=== PATIENT | female | born 1960 | race Caucasian/White ===

== ENCOUNTER 2018-01-06 19:10 | Emergency (ER) | payer BC, SELFPAY ==
[2018-01-06 19:12] VITALS: BP 165/89; PULSE 93; RESP 18; TEMP 37.1; O2SAT 96; BMI 36.4
--- NOTE | 2018-01-06 19:48 | RAD_ITS ---
STUDY: X-RAY - RIGHT KNEE REASON FOR EXAM: Female, 57 years old. Right knee pain. TECHNIQUE: 4 view(s) of the knee. COMPARISON: None. FINDINGS: Normal visualized distal femur. Normal visualized proximal tibia and fibula. Normal proximal tibiofibular articulation. Normal medial femorotibial compartment. Normal lateral femorotibial compartment. Normal patellofemoral articulation. Small suprapatellar effusion is present. RAD/Knee 4 or More Views IMPRESSION: No evidence of significant joint space loss or osteophyte formation with noted small suprapatellar effusion. Electronically Signed: Nikita Zaidi DO at 20:34 EDT , Service support ,
--- NOTE | 2018-01-06 20:20 | RAD_ITS ---
STUDY: X-RAY - PELVIS AND RIGHT HIP REASON FOR EXAM: Female, 57 years old. Right hip pain, no known injury. TECHNIQUE: Radiological exam, hip, unilateral, with pelvis when performed; 2 or 3 views. COMPARISON: None. FINDINGS: There is a non-specific bowel gas pattern. Normal visualized soft tissue structures. Normal bilateral iliac wings, sacroiliac joints and visualized sacrum. Normal bilateral superior and inferior pubic rami. Normal pubic symphysis. Normal bilateral ischial tuberosities. Normal visualized femoral head. Normal acetabulum. There is mild articular joint space narrowing of the hip. RAD/Hip 2-3 Views with Pelvis IMPRESSION: Mild hip joint space narrowing with otherwise no evidence of significant osteophyte formation or sclerosis. Electronically Signed: Nikita Zaidi DO at 20:38 EDT , Service support ,
--- NOTE | 2018-01-06 21:33 | ED.VISSUMM ---
- ER Visit Summary Date of Service: 01/06/18 Chief Complaint: Right hip and knee pain History of Present Illness: The patient is a 57 F who presents with right hip and knee pain. She states she twisted her right knee about a month ago. She thinks that she overcompensated with her gait. She is now having right hip pain particularly over the last week. She denies any weakness paresthesias loss of function. Physical Examination: Afebrile vitals are stable Heart regular Lungs clear Painful but active full range of motion of the right hip and knee she does have some diffuse tenderness small effusion on the right knee brisk capillary refill normal sensation Test Results: X-rays of the right hip and knee are notable for joint space narrowing in the right hip and a small suprapatellar effusion of the right knee Emergency Department Course and Treatment: No fractures noted on imaging. I do suspect this is related to strain and sprain. She was advised on supportive care. She was given a prescription for naproxen and discharged home. Treatment Plan: [] Disposition: Discharge Impression: Right hip pain Right knee pain This note was generated with [employer] dictation software. It may contain incorrect words, spelling, and punctuation that were not noted in review of the chart prior to signing ED Disposition - Plan for ED Patient: Chief Complaint: Lower Extremity Injury Referrals: Abhijeet Rowe MD [Primary Care Provider] -
--- NOTE | 2018-01-06 21:35 | ED.DEP ---
ED Disposition - Plan for ED Patient: Chief Complaint: Lower Extremity Injury Instructions: ED Knee Pain UKO, ED Sprain Hip Prescriptions: Naproxen [Naprosyn] 500 mg PO BID #20 tab Referrals: Abhijeet Rowe MD [Primary Care Provider] -
[2018-01-06 21:53] VITALS: BP 158/78; PULSE 79; RESP 18
== END 2018-01-06 21:53 | disposition home or self-care (01) ==
PROVIDERS: Emergency Provider Emergency Medicine; Family Provider Family Medicine; PCP Family Medicine
DX: M25.551 Pain in right hip (principal); M25.561 Pain in right knee; M25.461 Effusion, right knee; X50.1XXA Overexertion from prolonged static or awkward postures, initial encounter; Y93.9 Activity, unspecified; Y92.9 Unspecified place or not applicable; Y99.9 Unspecified external cause status; E11.9 Type 2 diabetes mellitus without complications; I10 Essential (primary) hypertension; K21.9 Gastro-esophageal reflux disease without esophagitis; Z79.84 Long term (current) use of oral hypoglycemic drugs; Z79.899 Other long term (current) drug therapy
CPT/HCPCS: 73502; 73564; 99282

== ENCOUNTER 2018-02-04 23:37 | Emergency (ER) | payer BC, SELFPAY ==
[2018-02-04 23:38] VITALS: BP 162/103; PULSE 72; RESP 15; TEMP 37.2; O2SAT 99; BMI 42.0
[2018-02-04 23:45] VITALS: BP 183/83; PULSE 68; RESP 18
--- NOTE | 2018-02-04 23:56 | ED.VISSUMM ---
- ER Visit Summary Date of Service: 02/04/18 Chief Complaint: Atraumatic right knee pain and swelling History of Present Illness: The patient is a 57 F leg a 3 day history of right knee pain and swelling. Has had a history of osteoarthritis in her right hip. Currently has been undergoing physical therapy. Denies any recent falls or trauma. No fever or redness. She has never had surgery to her right knee. She states anti-inflammatories are controlling her discomfort. She denies any prior right knee surgeries. Physical Examination: Middle-aged female no acute distress. Vital signs are stable and afebrile. HEENT exam unremarkable. Lungs clear to auscultation bilaterally. Heart regular rate and rhythm no murmur. Abdomen soft nontender. She is moving all 4 extremities. Neurovascular intact. The right knee is mildly swollen has a small to moderate-sized effusion. There is no redness. No significant warmth. No cellulitis. She is able to flex and extend the right knee. Has complete 180? of extension. The ACL, PCL, MCL and LCL are all intact. She has good endpoints. She does have mild joint tenderness. The extensor mechanism is intact. Distally the right calf ankle and foot are nontender neurovascular intact with strong DP pulse. Dorsi plantar flexion intact. Test Results: None. Patient has had x-rays before in the past. Emergency Department Course and Treatment: I explained to the patient she needs orthopedic follow-up. She may or may not need MRI of her knee. This is either just the degenerative arthritis or could be a meniscal tear. She will be treated for [place] for pain. Continue ice and anti-inflammatories. Treatment Plan: [place]. Ice and elevation. NSAIDs. Orthopedic follow-up. Disposition: Discharge Impression: Right knee pain and swelling secondary to a joint effusion Osteoarthritis This note was generated with P[employer] software. It may contain incorrect words, spelling, and punctuation that were not noted in review of the chart prior to signing ED Disposition - Plan for ED Patient: Chief Complaint: Lower Extremity Injury Referrals: Abhijeet Rowe MD [Primary Care Provider] -
--- NOTE | 2018-02-04 23:59 | ED.DCSUM_ITS ---
- ER Visit Summary Date of Service: 02/04/18 Chief Complaint: Atraumatic right knee pain and swelling History of Present Illness: The patient is a 57 F leg a 3 day history of right knee pain and swelling. Has had a history of osteoarthritis in her right hip. Currently has been undergoing physical therapy. Denies any recent falls or trauma. No fever or redness. She has never had surgery to her right knee. She states anti-inflammatories are controlling her discomfort. She denies any prior right knee surgeries. Physical Examination: Middle-aged female no acute distress. Vital signs are stable and afebrile. HEENT exam unremarkable. Lungs clear to auscultation bilaterally. Heart regular rate and rhythm no murmur. Abdomen soft nontender. She is moving all 4 extremities. Neurovascular intact. The right knee is mildly swollen has a small to moderate-sized effusion. There is no redness. No significant warmth. No cellulitis. She is able to flex and extend the right knee. Has complete 180? of extension. The ACL, PCL, MCL and LCL are all intact. She has good endpoints. She does have mild joint tenderness. The extensor mechanism is intact. Distally the right calf ankle and foot are nontender neurovascular intact with strong DP pulse. Dorsi plantar flexion intact. Test Results: None. Patient has had x-rays before in the past. Emergency Department Course and Treatment: I explained to the patient she needs orthopedic follow-up. She may or may not need MRI of her knee. This is either just the degenerative arthritis or could be a meniscal tear. She will be treated for [place] for pain. Continue ice and anti-inflammatories. Treatment Plan: [place]. Ice and elevation. NSAIDs. Orthopedic follow-up. Disposition: Discharge Impression: Right knee pain and swelling secondary to a joint effusion Osteoarthritis This note was generated with Sum[employer]ation software. It may contain incorrect words, spelling, and punctuation that were not noted in review of the chart prior to signing ED Disposition - Plan for ED Patient: Chief Complaint: Lower Extremity Injury Referrals: Abhijeet Rowe MD [Primary Care Provider] -
--- NOTE | 2018-02-04 23:59 | ED.DEP ---
ED Disposition - Plan for ED Patient: Disposition: Home or Assisted Living Chief Complaint: Lower Extremity Injury Instructions: ED Effusion Knee Prescriptions: Hydrocodone/Acetaminophen [[place] 5-325 Tablet] 1 ea PO Q4H PRN PRN #20 tab PRN Reason: Pain Referrals: Edmundo Mcgrath MD [STAFF PHYSICIAN] - As soon as possible Additional Instructions: Ice and elevate your right knee. Call follow-up with an orthopedic physician for further evaluation. [place] for pain.
--- NOTE | 2018-02-05 00:03 | DCINST.ED_ITS ---
ED Disposition - Plan for ED Patient: Disposition: Home or Assisted Living Chief Complaint: Lower Extremity Injury Instructions: ED Effusion Knee Prescriptions: Hydrocodone/Acetaminophen [[place] 5-325 Tablet] 1 ea PO Q4H PRN PRN #20 tab PRN Reason: Pain Referrals: Edmundo Mcgrath MD [STAFF PHYSICIAN] - As soon as possible Additional Instructions: Ice and elevate your right knee. Call follow-up with an orthopedic physician for further evaluation. [place] for pain.
[2018-02-05] MEDS: HYDROcodone Bitartrate/Apap 5/325 Tablet PO (00:11)
[2018-02-05 00:12] VITALS: BP 175/97; PULSE 75; RESP 16; O2SAT 99
== END 2018-02-05 00:30 | disposition home or self-care (01) ==
LOC: ED 02-05 00:04
PROVIDERS: Emergency Provider Emergency Medicine; Family Provider Family Medicine; PCP Family Medicine
DX: M25.461 Effusion, right knee (principal); M17.11 Unilateral primary osteoarthritis, right knee; E11.9 Type 2 diabetes mellitus without complications; I10 Essential (primary) hypertension; Z79.84 Long term (current) use of oral hypoglycemic drugs; Z79.82 Long term (current) use of aspirin; Z79.899 Other long term (current) drug therapy
CPT/HCPCS: 99284

== ENCOUNTER → 2018-03-07 15:19 | Outpatient (CLI) | payer BC, SELFPAY ==
--- NOTE | 2018-03-07 16:10 | MRI_ITS ---
STUDY: MRI RIGHT KNEE REASON FOR EXAM: Female, 57 years old. Twisting injury. TECHNIQUE: Standardized fat and water weighted pulse sequences were obtained in all 3 orthogonal planes. COMPARISON: None. FINDINGS: This study is extremely limited due to patient motion on all pulse sequences. There is a large joint effusion. Cruciate and collateral ligaments are intact. Quadriceps and patellar tendons are intact. Medial and lateral retinacula are unremarkable. Patellofemoral compartment: There is very mild lateral patellar subluxation. Patellofemoral articular cartilage is normal. Medial compartment: No evidence of meniscal tear. Cartilage is intact. Lateral compartment: Extensive loss of femoral hyaline cartilage. Irregular femoral articular surface, with displaced osteochondral fracture in the medial aspect of the lateral femoral condyle. There is a bucket-handle tear of the anterior horn of the lateral meniscus. Meniscal fragment is displaced laterally. Marrow edema is noted in the lateral femoral condyle and lateral tibial plateau. Marrow signal is otherwise unremarkable. There is no evidence of fracture. Edema is noted in the lateral head of the gastrocnemius, consistent with low-grade strain. Biceps femoris, popliteus, semimembranosus, and pes anserine muscles and tendons are unremarkable. MRI/Lower Ext Joint Only (Routine) IMPRESSION: 1. Limited due to motion artifact. 2. Bucket-handle tear of the anterior horn lateral meniscus. 3. Low-grade gastrocnemius strain. 4. Irregular femoral articular surface with suspected displaced osteochondral fracture. 5. Lateral femoral and tibial bone contusions. 6. Joint effusion. Electronically Signed: Debo De La Rosa MD at 22:06 EDT Tel , Service support ,
== END ==
PROVIDERS: Family Provider Family Medicine; PCP Family Medicine; Visit Provider Physician Assistant Surgical
DX: M25.561 Pain in right knee (principal)
CPT/HCPCS: 73721

== ENCOUNTER 2018-04-02 07:33 | Inpatient (IN) | payer BC, SELFPAY ==
[2018-03-25 15:11] VITALS: BP 150/95; PULSE 68; RESP 16; TEMP 36.6; O2SAT 99; BMI 35.2
--- NOTE | 2018-03-25 15:20 | SDCEKG_ITS ---
Test Reason : Blood Pressure : / mmHG Vent. Rate : 070 BPM Atrial Rate : 070 BPM P-R Int : 122 ms QRS Dur : 080 ms QT Int : 396 ms P-R-T Axes : 007 014 045 degrees QTc Int : 427 ms Poor data quality, interpretation may be adversely affected Normal sinus rhythm Normal ECG Confirmed by DAMIEN FREDERICK, MURALI ([id number]), visual effects editor MEGGAN GARCIA ([id number]) on 03/31/2018 3:20:17 PM Referred By: Vincent Rincon Confirmed By:MURALI QUEZADA MD
[2018-03-25 15:44] LABS: Absolute Lymphocyte Count 1.59 X10^3/ul (0.83-4.51); Absolute Neutrophil Count 5.3 X10^3/uL (2.0-7.7); Basophil# 0.03 X10^3/uL; Basophil% 0.4 % (0-1); Eosinophil# 0.09 X10^3/uL; Eosinophils% 1.2 % (0-5); Hematocrit 39.6 % (37-47); Hemoglobin 12.8 g/dl (12.0-15.0); Lymphocyte # 1.59 X10^3/ul (4.0); Lymphocyte % 21.3 % (19-41); Mean Corp Hgb Conc 32.3 g/gl (32-36); Mean Corpuscular Hgb 28.9 pg (27.0-32.0); Mean Corpuscular Volume 89.4 fL (81-99); Mean Platelet Vol. 9.9 fl (6.2-12.0); Monocyte# 0.41 X10^3/uL; Monocyte% 5.5 % (0-10); Neutrophil # 5.34 X10^3/uL (2.7-7.7); Neutrophil % 71.5 % (47-70); Platelet Count 251 K/mm3 (150-450); RBC Distribution Width CV 12.8 % (11.6-14.6); RBC Distribution Width SD 41.4 fl (35.1-43.9); Red Blood Count 4.43 M/mm3 (4.2-5.4); White Blood Count 7.5 K/mm3 (4.4-11.0)
[2018-03-25 15:46] LABS: POSITIVE COUNT NO; POSITIVE DIFFERENTIAL NO; POSITIVE MORPHOLOGY NO
[2018-03-25 16:08] LABS: Hemoglobin A1c 6.4 % (4.2-6.3)
[2018-03-25 16:14] LABS: Anion Gap 6 (5-15); BUN 18 mg/dL (7-18); BUN/Creat Ratio 23.3 RATIO (10-20); Calcium,Total 8.4 mg/dL (8.5-10.1); Chloride 107 mmol/L (98-107); Creatinine, Serum 0.77 mg/dL (0.55-1.02); EST Glomerular Filtration Rate 82 mL/min (>60); Est Glom Filt Rate - Afr Amer 99 mL/min (>60); Estimated Creatinine Clearance 73.41 ml/min; Glucose 118 mg/dL (74-106); Potassium 3.8 mmol/L (3.5-5.1); Sodium Level 140 mmol/L (136-145)
--- NOTE | 2018-03-26 12:08 | HP.PCM_ITS ---
History and Physical DATE OF SURGERY: 04/02/2018 SCHEDULED PROCEDURE: Right Total Knee Arthroplasty HISTORY OF PRESENT ILLNESS: This is a 57-year-old female who has been having ongoing pain in the right knee since December 2017. Her pain is aching, sharp, and stabbing. She has increased pain going up and down stairs, driving, and standing for long periods. Patient denies any trauma or injury to the knee. She does have low back pain with some numbness and tingling into her feet which she relates to the diabetic neuropathy. Patient had to go to the emergency room in January due to her pain. Patient feels as if her knee is unstable and wants to give out. She has required cane and walker for a rotatory assistance. Patient states she has difficult time with doing housework and shopping. She has difficult time standing at work. Patient has stumbled secondary to her right knee pain. Patient feels unsafe driving due to her pain. Patient has tried conservative measures consisting of rest, ice, heat, and elevation with minimal relief. She underwent a corticosteroid injection into the right knee in January 2018 which did not provide her with any significant amount of relief. She has been through formal physical therapy and home exercises with no relief in symptoms. She has been through career based intervention coordinator with no relief in symptoms. Patient has been on oral medications with no relief in symptoms. She was unable to take anti- inflammatory due to this upsetting her stomach. Patient denies previous surgery on the right knee. patient also underwent a MRI of the right knee. Patient currently denies any chest pain, shortness of breath, fevers chills, recent infections. Patient has a medical history pertinent for type 2 diabetes m ellitus, hypertension, and vertigo. We are obtaining surgical clearance from patient's primary care physician. REVIEW OF SYSTEMS: ROS: Const: Reports change in appetite, but denies fever and weight change. CV: Reports irregular heartbeat, but denies chest pain and heart murmur. Resp: Reports cough and shortness of breath, but denies pneumonia, tuberculosis and wheezing. GI: Reports constipation, diarrhea, heartburn and nausea, but denies rectal itching, bloody stools and vomiting. : Denies incontinence. Musculo: Reports gait disturbance, leg swelling, trouble walking and weakness, but denies pain. Skin: Denies Raynaud's, history of shingles and tattoo. Neuro: Reports difficulty with balance, dizziness and numbness/tingling but denies ambulatory dysfunction and tremor. Psych: Reports anxiety, insomnia and stress. Charli/Lymph: Denies anemia, bleeding/bruising tendency and past transfusion. Reviewed, no changes. PAST MEDICAL HISTORY: Advance Care Plan: No Advance Directives Effective Date: 02/07/2018 PMH: Medical Problems: Arthritis, Diabetes, High Blood Pressure, Vertigo Accidents: None Surgical Hx: None Anesthesia Complications: None Assistive Devices: Glasses, Cane Reviewed and updated. SOCIAL HISTORY: SH: Marital: Single.Occupation: [employer].Work Status: Currently Working.Hand Dominance: Right-handed. Personal Habits: Cigarette Use: Never Smoked Cigarettes.Smokeless Tobacco: Never Used Smokeless Tobacco.Alcohol: Denies use.Drug Use: Denies Use.Enjoy Exercising: Daily. Reviewed, no changes. VITALS: Ht: 65 Wt: 208lb Wt k.349 BMI: 34.6 BP: 148/79 Pulse: 78 Resp: 16 T: 98.7 T: 37.1C ALLERGIES: Penicillin - Hives Metformin - Diarrhea MEDICATIONS: Glimepiride 1 mg daily, Lisinopril 2.5 mg daily, Meloxicam 15 mg daily, Lorazepam 0.5 mg as needed, Meclizine HCL 25 mg as needed, Probioic-Ritzman Brand daily, Tylenol Extra Strength 500 mg 2 by mouth every 8 hours PRE-OP EXAM: General appearance:NORMAL Other: Eyes: Conjunctivae and lids: NORMAL Pupils: ERR Ears, Nose, Mouth, and Throat: NORMAL Other: Inspection of lips, teeth and gums: NORMAL Other: Neck: Examination of neck: no masses noted. Respiratory: Assessment of respiratory effort: NORMAL Other: Auscultation of lungs: clear to auscultation no wheezes, rhonchi or rales. Cardiovascular: Auscultation of heart: regular rate and rhythm, positive sy stolic murmurs. Exam of carotid arteries: NORMAL Other: Gastrointestinal: Exam of abdomen: soft, nontender, nondistended bowel sounds present. PHYSICAL EXAMINATION: Patient is alert and oriented ?3 in no acute distress. Patient walks with an antalgic gait. She does require the use of a walker. Patient has tenderness to palpation over the medial and lateral right knee at the joint line. Range of motion right knee: Lacks 5 of full extension to 100 of flexion. Patient has correctable valgus alignment. Stable to anterior/posterior drawer exam. She does have lateral laxity. Sensation intact to light touch. Neurovascularly intact. IMAGING STUDIES: X-rays of the right knee reveal valgus alignment with lateral joint space narrowing, subchondral sclerosis, osteophyte formation consistent with severe osteoarthritis. MRI of the right knee does show osteochondral fragment and severe lateral compartment loss of cartilage with bucket-handle tear in the lateral meniscus. IMPRESSION: 1. Severe right knee osteoarthritis 2. Type 2 diabetes mellitus 3. Hypertension 4. Vertigo PLAN: Dr. Rincon did discuss and review with the patient all treatment options including surgical versus nonsurgical options. Patient does wish to proceed with the above-stated procedure. Potential risks, benefits, and complications of the procedure were discussed in detail including but not limited to , infection, nerve and blood vessel damage, persistent pain, numbness, tingling, paresthesias, blood clot, pulmonary embolism, and requirement for possible further surgery. The patient expressed full understanding and has no further questions for the doctor. Patient does agree to proceed with the above-stated procedure and has signed the surgery consent form. ___ I have re-examined the patient. There are no clinical changes since date of exam. ___ See progress notes for changes. ___ Dictated on admission Date: Time: Signature:
--- NOTE | 2018-03-27 12:01 | CASEMGMT ---
Call placed to patient to discuss d/c needs after upcoming surgery. Per PAT assessment, patient planned to return home. When speaking with patient, she reports that she feels she needs rehab for 1-2 weeks there's too much to do at home and I need to be able to put weight on my leg and patient has already spoken with HARMEET Joseph. Patient states that [place] insurance will do pre-cert for TCU after patient has surgery. Patient reports that she has a walker. Patient reports that she has no running water at her home, will have to take sponge baths with diaz of hot water and uses a chamber pot. Reports there is 1 step into entryway and 1 step into kitchen, otherwise has bed and bath area on 1st level of home. Patient questioning pre-surgery bath per instruction sheet - is shaky and unsteady when she doesn't eat and is afraid to take required bath at home the day of surgery. Encouraged patient to ask surgery staff when they call for arrival time if there are accommodations in surgery area. Informed patient that [facility] will follow up with patient while she's here. Etta Carreno LPN Clinical Support
--- NOTE | 2018-03-27 13:56 | CASEMGMT ---
Spoke with Jennifer in PAT re: patient's concerns of completing hibiclens bath the morning of surgery while fasting for surgery. Per Jennifer, surgery staff would be able to assist with hibiclens in pre-op as they use hibiclens wipes when changing from street clothes to hospital gown. Call placed to patient to inform her of above. Stressed to patient the importance of completing the hibiclens wash for the 5 days leading up to surgery as instructed by PAT, patient verbalizes understanding and states there won't be any difficulty with the 5 days leading up to surgery. Patients only concern is that she is weak and unsteady when she doesn't eat. ALEJANDRO Woodward updated as well. Etta Carreno, MARLON Clinical Support
[2018-04-02] VITALS (12 sets, daily range): BP systolic 80–172; BP diastolic 55–95; PULSE 65–95; RESP 15–20; TEMP 36.4–37.2; O2SAT 98–100; BMI 35.2
--- NOTE | 2018-04-02 | KNEE_PTH ---
PATIENT: JANETH AGUERO LOC: [facility] U#:[id number] AGE/SX: 57/F ROOM: MS321 RE04/02/[address]: Dr. Vincent Rincon MD : 1960 BED: 1 DIS: 04/04/2018 SPEC #: [id number] RECD: 04/02/18 13:27 STATUS: ZACHERY REValentina #: [id number] GUALBERTO: 04/02/18 00:[address]: Vincent Rincon DEPT: SURGICAL PATHOLOGY RECD BY: Mk Branch ENTERED: 04/02/18 13:27 SP TYPE: TOTAL KNEE OTHR DR: MD Dr. Abhijeet uQiros MD Tissues: Knee, NOS Procedures: Decalcification bone/plaque Surgery Specimen Level IV HEADER OPERATION: Total knee replacement with navigation PRE-OP DIAGNOSIS: Severe right knee osteoarthritis TISSUE SUBMITTED: Bone from right knee MICROSCOPIC DIAGNOSIS Bone, right knee, total knee replacement/resection: Pieces of bone with degenerative osteoarthritic changes. Fragments of dense fibroconnective tissue, fibrocartilaginous tissue and synovial tissue. ELKE:everardo 04/07/18 MICROSCOPIC DESCRIPTION Slides are reviewed. GROSS DESCRIPTION Received is one container designated bone from right knee. The specimen consists of multiple fragments of jarvis-yellow bone measuring in aggregate 13 x 12 x 3 cm. Two pieces of indurated tissue are noted consistent with cartilaginous tissue measuring in aggregate 6 x 3 x 1.5 cm. A number of bony fragments contain articular surfaces consistent with tibial plateau and femoral condyle and displaying prominent osteophyte formation and bone erosion. [place] [employer] sections are submitted in two cassettes as follows: 1 - cartilaginous tissue, 2 - bone after decalcification. / ELKE:everardo 04/02/18 TC:5 [facility]: [id number], [id number]
[2018-04-02] MEDS: Celecoxib 200 MG Capsule 400 MG PO (08:29)
[2018-04-02 08:30] LABS: Bedside Glucose 130 mg/dL (70-110)
[2018-04-02] MEDS: Acetaminophen 650 MG/20 ML UDC 1000 MG PO (08:30)
--- NOTE | 2018-04-02 10:34 | RAD_ITS ---
STUDY: X-RAY - RIGHT KNEE REASON FOR EXAM: Postop right knee. TECHNIQUE: 2 view(s) of the knee. COMPARISON: Radiographs 01/06/2018. FINDINGS: There is a right total knee arthroplasty without evidence of complication. There are overlying skin jeremy and postoperative gas in the soft tissues. RAD/Knee 1 or 2 Views IMPRESSION: Uncomplicated right total knee arthroplasty. Electronically Signed: Kulwinder Lange MD at 13:11 EDT Tel , Service support ,
--- NOTE | 2018-04-02 10:36 | PCM.OPRPT ---
Report of Operation Date of Procedure: 04/02/18 Pre-Operative Diagnosis: Right knee primary osteoarthritis Post-Operative Diagnosis: Right knee osteoarthritis primary, lateral femoral condyle avascular necrosis Surgery/Procedure Performed:: Right total knee replacement Description of Surgical Findings:: Avascular necrosis lateral femoral condyle supervisor forming department: Kristopher Swain Type of Anesthesia:: Spinal Anesthesiologist: Hugo Forte Special Medications: 2 g Ancef, 1 g TXA at incision, 1 g TXA closure, 10 mg Decadron, joint cocktail (5 mg Duramorph, 30 mL of 0.5% Ropivicaine, 1000 units of epinephrine, 30 mg of Toradol) Specimen's removed: Bony cuts were sent to pathology Estimated Blood Loss (mL): 40 Fluids Replaced: 1700 ML crystalloid Description of Procedure: Implants used: 1. Hanna size 4 triathlon cruciate retaining distal femoral component 2. Hanna size 4 universal tibial baseplate 3. Hanna X3 11 mm CS polyethylene 4. [place] X3 32 mm asymmetric patella Brief history operative indications: 57-year-old F with history of right knee osteoarthritis with radiographic findings with loss of joint space, osteophyte formation and subchondral sclerosis. Failed conservative measures as mentioned in the H&P. Discussion of total knee arthroplasty as well as risk and benefits were discussed the patient including but not limited to blood loss, DVTs, PEs, neurovascular damage, general risk of anesthesia including loss of life, and stiffness or instability were discussed with patient. Patient demonstrated understanding and was able to sign informed consent. Procedure: On the date of procedure patient's right lower extremity was marked in the preoperative area. The patient was then taken back to the operating room where the patient was placed on the table in the supine position. All bony prominences were identified a well-padded. Anesthesia assumed control of the C-spine and airway and remained controlled throughout the remainder of the procedure. A tourniquet was placed on the right upper thigh and the leg was prepped in a sterile fashion. The surgeon then scrubbed at this time. Upon reentering the room the right lower extremity was draped in a standard orthopedic fashion. A timeout was then called and everyone agreed upon the side, the site, the procedure to be performed, patient's identity and antibiotics given. Esmarch bandage was used to exsanguinate the extremity and the tourniquet was placed up to 250 mmHg with the knee in flexion. A midline skin incision was made and sharp dissection was taken down through skin subcutaneous tissue and fat. The standard medial parapatellar incision was made and the patella was subluxed laterally. The standard deep MCL release was done and the fat pad was resected. Next our attention was directed to the femur. Navigation pins were placed, navigation was registered. The distal femoral cutting block was pinned into place and 8 mm of distal femur resection was completed. The distal femoral cut was verified with navigation. The knee was then placed in deep flexion in the standard [place] sizing guide was used to place the femoral component in 3? external rotation based on the posterior condyles. A size 4 4-in-1 cutting block was selected and pinned into place. The anterior cut was then made and checked for notching. The subsequent anterior chamfer cuts, posterior condylar cuts and posterior chamfer cuts were made while ensuring the MCL and LCL were protected. Our attention was then turned to the tibia where the navigation pins were placed, navigation was registered. [employer] tibial cutting guide was used to make the appropriate tibial cut 90 degrees from the mechanical axis. Navigation was then used to verify the cut. A size 4 tibial base plate was selected. the knee was flexed to 90 degrees and the soft tissues and posterior osteophytes were removed from the joint. 40 cc of the periarticular injection was injected into the posterior medial corner of the joint. The appropriate trials were then placed on the femur and tibia. A trial polyethylene was trialed to ensure proper balancing and stability of the knee. Patella tracking, was then verified and corrected appropriately as needed. The appropriate tibial internal rotation was then marked with a bovie. Our attention was then directed to the patella. The patella was everted and a flat resection was made. The lug holes were drilled and the patella trial was placed. Patellar tracking was checked and deemed appropriate. Once we were happy lug holes were drilled for the femur and trial components were removed. the tibia was subluxed and pinned into place and the keel was punched and the canal was reamed. Final components were verified and opened, and cement was mixed in a vacuum. Hanna Simplex cement was used. The wound was copiously irrigated with normal saline. When the cement was ready the components were cemented into place starting with the tibia, femur and finally the patella. The trial poly component was placed and the knee was placed in full extension. All excess cement was removed in the process. Once the cement had cured the tracking, alignment and balance were verified and a size 11 mm polyethylene component was placed. Once the final components were placed the wound was copiously irrigated with normal saline solution and the periarticular injection was given. The wound was closed in a layer ame fashion using #1 vicryl interrupted sutures for the arthrotomy, 2-0 interrupted Vicryl suture for the subcuticular layer and jeremy for final skin closure. A sterile compressive dressing was then placed. The patient was then awakened from anesthesia, transferred to the [facility] and transferred to the PACU for recovery. Post op plan DVT ppx: ASA 81mg, thigh high compression stockings Follow up: in office in 2 weeks for wound check PT: to start POD #0 at hospital, outpatient PT should be arranged. Grafts/Implants Used: [place] cemented cruciate retaining total knee replacement - Complications None - Admit VTE Documentation VTE Present on Admission: No VTE Mechan Device Prophylaxis: SCD's, Thigh High BRENDA Hose VTE Pharm Prophylaxis ordered?: Yes
--- NOTE | 2018-04-02 10:39 | OP.PCM_ITS ---
Report of Operation Date of Procedure: 04/02/18 Pre-Operative Diagnosis: Right knee primary osteoarthritis Post-Operative Diagnosis: Right knee osteoarthritis primary, lateral femoral condyle avascular necrosis Surgery/Procedure Performed:: Right total knee replacement Description of Surgical Findings:: Avascular necrosis lateral femoral condyle information technology officer: Kristopher Swain Type of Anesthesia:: Spinal Anesthesiologist: Hugo Forte Special Medications: 2 g Ancef, 1 g TXA at incision, 1 g TXA closure, 10 mg Decadron, joint cocktail (5 mg Duramorph, 30 mL of 0.5% Ropivicaine, 1000 units of epinephrine, 30 mg of Toradol) Specimen's removed: Bony cuts were sent to pathology Estimated Blood Loss (mL): 40 Fluids Replaced: 1700 ML crystalloid Description of Procedure: Implants used: 1. Hanna size 4 triathlon cruciate retaining distal femoral component 2. Hanna size 4 universal tibial baseplate 3. Hanna X3 11 mm CS polyethylene 4. [place] X3 32 mm asymmetric patella Brief history operative indications: 57-year-old F with history of right knee osteoarthritis with radiographic findings with loss of joint space, osteophyte formation and subchondral sclerosis. Failed conservative measures as mentioned in the H&P. Discussion of total knee arthroplasty as well as risk and benefits were discussed the patient including but not limited to blood loss, DVTs, PEs, neurovascular damage, general risk of anesthesia including loss of life, and stiffness or instability were discussed with patient. Patient demonstrated understanding and was able to sign informed consent. Procedure: On the date of procedure patient's right lower extremity was marked in the preoperative area. The patient was then taken back to the operating room where the patient was placed on the table in the supine position. All bony prominences were identified a well-padded. Anesthesia assumed control of the C-spine and airway and remained controlled throughout the remainder of the procedure. A tourniquet was placed on the right upper thigh and the leg was prepped in a sterile fashion. The surgeon then scrubbed at this time. Upon reentering the room the right lower extremity was draped in a standard orthopedic fashion. A timeout was then called and everyone agreed upon the side, the site, the procedure to be performed, patient's identity and antibiotics given. Esmarch bandage was used to exsanguinate the extremity and the tourniquet was placed up to 250 mmHg with the knee in flexion. A midline skin incision was made and sharp dissection was taken down through skin subcutaneous tissue and fat. The standard medial parapatellar incision was made and the patella was subluxed laterally. The standard deep MCL release was done and the fat pad was resected. Next our attention was directed to the femur. Navigation pins were placed, navigation was registered. The distal femoral cutting block was pinned into place and 8 mm of distal femur resection was completed. The distal femoral cut was verified with navigation. The knee was then placed in deep flexion in the standard [employer] sizing guide was used to place the femoral component in 3? external rotation based on the posterior condyles. A size 4 4-in-1 cutting block was selected and pinned into place. The anterior cut was then made and checked for notching. The subsequent anterior chamfer cuts, posterior condylar cuts and posterior chamfer cuts were made while ensuring the MCL and LCL were protected. Our attention was then turned to the tibia where the navigation pins were placed, navigation was registered. [employer] tibial cutting guide was used to make the appropriate tibial cut 90 degrees from the mechanical axis. Navigation was then used to verify the cut. A size 4 tibial base plate was selected. the knee was flexed to 90 degrees and the soft tissues and posterior osteophytes were removed from the joint. 40 cc of the periarticular injection was injected into the posterior medial corner of the joint. The appropriate trials were then placed on the femur and tibia. A trial polyethylene was trialed to ensure proper balancing and stability of the knee. Patella tracking, was then verified and corrected appropriately as needed. The appropriate tibial internal rotation was then marked with a bovie. Our attention was then directed to the patella. The patella was everted and a flat resection was made. The lug holes were drilled and the patella trial was placed. Patellar tracking was checked and deemed appropriate. Once we were happy lug holes were drilled for the femur and trial components were removed. the tibia was subluxed and pinned into place and the keel was punched and the canal was reamed. Final components were verified and opened, and cement was mixed in a vacuum. Hanna Simplex cement was used. The wound was copiously irrigated with normal saline. When the cement was ready the components were cemented into place starting with the tibia, femur and finally the patella. The trial poly component was placed and the knee was placed in full extension. All excess cement was removed in the process. Once the cement had cured the tracking, alignment and balance were verified and a size 11 mm polyethylene component was placed. Once the final components were placed the wound was copiously irrigated with normal saline solution and the periarticular injection was given. The wound was closed in a layer mae fashion using #1 vicryl interrupted sutures for the arthrotomy, 2-0 interrupted Vicryl suture for the subcuticular layer and jeremy for final skin closure. A sterile compressive dressing was then placed. The patient was then awakened from anesthesia, transferred to the [facility] and transferred to the PACU for recovery. Post op plan DVT ppx: ASA 81mg, thigh high compression stockings Follow up: in office in 2 weeks for wound check PT: to start POD #0 at hospital, outpatient PT should be arranged. Grafts/Implants Used: [place] cemented cruciate retaining total knee replacement - Complications None - Admit VTE Documentation VTE Present on Admission: No VTE Mechan Device Prophylaxis: SCD's, Thigh High BRENDA Hose VTE Pharm Prophylaxis ordered?: Yes
[2018-04-02 11:31] LABS: Bedside Glucose 177 mg/dL (70-110)
[2018-04-02] MEDS: Lactated Ringers 1,000 ML 125 ML IV ×2 (11:38→19:51)
[2018-04-02] MEDS: Scopolamine 1mg/72hr Patch 1 PATCH TD (11:41)
[2018-04-02] MEDS: Insulin Lispro 100 UNIT/ML INSULN.PEN SC ×3 (12:45→22:15)
--- NOTE | 2018-04-02 13:03 | PCM.CONS.GEN ---
Problem List (1) history of benign paroxysmal positional vertigo Status: Chronic (2) Essential (primary) hypertension Status: Chronic (3) DM2 (diabetes mellitus, type 2) Status: Chronic Reason for Consult Date of Consultation: 04/02/18 Reason for Consultation: Status post right total knee arthroplasty History of Present Illness: The patient is a 57 year old F with past medical history cigar for hypertension, primary osteoarthritis as well as diabetes mellitus type 2 who underwent right total knee arthroplasty by Dr. Rincon on 04/02/2018 on account of Right knee osteoarthritis primary, lateral femoral condyle avascular necrosis hospitalist service was consulted to assist with management of patient medical comorbidities including hypertension as well as diabetes mellitus type 2 Date of Procedure: 04/02/18 Pre-Operative Diagnosis: Right knee primary osteoarthritis Post-Operative Diagnosis: Right knee osteoarthritis primary, lateral femoral condyle avascular necrosis Surgery/Procedure Performed:: Right total knee replacement Past Medical History Past Medical History (Chronic Problems): Chronic Problems Essential (primary) hypertension (Chronic) DM2 (diabetes mellitus, type 2) (Chronic) history of benign paroxysmal positional vertigo (Chronic) Allergies Penicillins Allergy (Verified 04/02/18 08:02) Hives metformin Adverse Reaction (Verified 04/02/18 08:02) Diarrhea Home Medications: Ambulatory Orders Medication Instructions Recorded Famotidine [Pepcid] 20 mg PO BID 05/09/15 Glimepiride 1 mg PO QHS 05/09/15 Lisinopril 2.5 mg PO QHS 05/09/15 Multivitamin [Multiple Vitamins] 1 tab PO DAILY 02/04/18 Hydrocodone/Acetaminophen [Fyffe 1 ea PO Q4H PRN PRN #20 tab 02/05/18 5-325 Tablet] Aspirin E.C. [Ecotrin] 81 mg PO BID 03/25/18 L.acidoph,Paracasei, B.lactis 1 each PO DAILY 03/25/18 [Probiotic] Lorazepam [Ativan] 0.5 mg PO DAILY PRN PRN 03/25/18 Meclizine HCl [Antivert] 25 mg PO BID PRN PRN 03/25/18 Meloxicam [Mobic] 15 mg PO QHS 03/25/18 Smoking Status: Never smoker Tobacco Use: Non-smoker - *Family History Maternal History Items: Heart Disease Paternal History Items: Diabetes, Hypertension Review of Systems Constitutional: Denies: Anorexia, Chills, Fever, Night Sweats, Weight Change HEENT: Denies: Head Aches, Sinus Congestion, Sinus Drainage Cardiovascular: Denies: Chest Pain, Orthopnea, Palpitations, Paroxysmal Noc. Dyspnea Respiratory: Denies: Cough, Shortness of breath at rest, Shortness of breath upon exertion, Sputum production Gastrointestinal: Denies: Abdominal Pain, Hematemesis, Hematochezia, Nausea, Melena, Vomiting Genitourinary: Denies: Dysuria, Frequency, Hematuria, Urgency Musculoskeletal: Reports: Joint Pain. Denies: Joint Tenderness Skin: Denies: Rash Neurological: Denies: Focal weakness, Numbness, Tingling Psychiatric: Denies: Homicidal Ideations, Suicidal Ideations Hematologic/ Lymphatic: Denies: Easy Bruising, Easy Bleeding Objective: GENERAL: cooperative HEENT: Atraumatic; moist oral mucosa EYES; Anicteric, Normal Conjunctiva NECK; supple, normal thyroid, no distended JVD. RESPIRATORY: Diminished to auscultation bilaterally, CARDIOVASCULAR: Regular S1 S2, no audible murmurs GI: soft, non-tender, normoactive bowel sounds, : No Renal angle tenderness; EXTREMITIES: No edema, no clubbing, no cyanosis. MUSCULOSKELETAL: R Knee in surgical NEURO: Awake; no lateralizing signs. SKIN: No Rash PSYCH; Normal affect - Physical Exam Vital Signs Temp Pulse Resp BP Pulse Ox 97.9 F 95 16 156/82 H 100 04/02/18 12:39 04/02/18 12:39 04/02/18 12:39 04/02/18 12:39 04/02/18 12:39 Oxygen Delivery Method Room Air Weight: 96 kg Body Mass Index (BMI) 35.2 Finger Stick Blood Glucose 177 Intake and Output for Last 24 Hours 03/31/18 04/01/18 04/02/18 23:59 23:59 23:59 Intake Total 2099 Balance 2099 POC Glucose 04/02/18 04/02/18 11:27 08:21 POC Glucose 177 H 130 H Assessment/Plan The patient is a 57 year old F with past medical history cigar for hypertension, primary osteoarthritis as well as diabetes mellitus type 2 who underwent right total knee arthroplasty by Dr. Rincon on 04/02/2018 on account of Right knee osteoarthritis primary, lateral femoral condyle avascular necrosis hospitalist service was consulted to assist with management of patient medical comorbidities including hypertension as well as diabetes mellitus type 2 1. Status post right total knee arthroplasty by Dr. Rincon on 04/02/2018 on account of Right knee osteoarthritis primary, lateral femoral condyle avascular necrosis patient postoperative orders regarding PT OT, DVT prophylaxis as well as pain management addressed by primary service 2. Diabetes mellitus type II: Patient is on Amaryl did continue and subsequently placed on Accu-Cheks a.c. and at bedtime and covered with sliding scale insulin 3. Hypertension-blood pressure controlled, home medications continued with dose adjustment as needed 4. Benign positional vertigo currently symptomatic 5. Generalized osteoarthritis 6. DVT prophylaxis as per primary service patient was started on aspirin 81mg p.o. twice daily Active Medications Acetaminophen (Tylenol) 1,000 mg PO Q8 [facility] Aspirin (Ecotrin) 81 mg PO BIDCM [place] Famotidine (Pepcid) 20 mg PO BID [place] Glimepiride (Amaryl) 1 mg PO QHS [facility] Clindamycin Phosphate 600 mg/ (Dextrose) 54 mls @ 162 mls/hr IV Q6H [facility] Stop: 04/03/18 03:49 Lactated Ringer's () 1,000 mls @ 125 mls/hr IV .Q8H [facility] Last Admin: 04/02/18 11:38 Dose: 125 mls/hr Influenza Virus Vaccine Quadrival (Fluarix/Fluzone) 0.5 ml IM .ONCE ONE Stop: 04/03/18 10:01 Insulin Human Lispro (Humalog Kwikpen (Bkc)) 0 unit SC ACHS [facility]; Protocol Ketorolac Tromethamine (Toradol) 15 mg IV Q6H PRN PRN PRN Reason: MILD-MOD PAIN (1-5/10) Lisinopril (Zestril) 2.5 mg PO QHS [facility] Lorazepam (Ativan) 0.5 mg PO DAILY PRN PRN PRN Reason: Vertigo Meclizine HCl (Antivert) 25 mg PO BID PRN PRN PRN Reason: Vertigo Meloxicam (Mobic) 7.5 mg PO BID [facility] Morphine Sulfate () 2 - 4 mg IV Q2H PRN PRN PRN Reason: SEVERE PAIN (6-10/10) Morphine Sulfate () 2 - 4 mg IV Q2H PRN PRN PRN Reason: SEVERE PAIN (6-10/10) Multivitamins (Multivitamin) 1 tablet PO DAILY@0800 [facility] Nutritional Formula (Lactose Free) (Glucerna Shake) 120 ml PO TIDCM [facility] Last Admin: 04/02/18 12:37 Dose: Not Given Ondansetron HCl (Zofran) 4 mg IV Q8H PRN PRN PRN Reason: NAUSEA Oxycodone HCl (Oxyir) 5 - 10 mg PO Q4H PRN PRN PRN Reason: MOD-SEVERE PAIN (-04/02) Promethazine HCl (Phenergan) 12.5 mg IM Q6H PRN PRN; Protocol PRN Reason: NAUSEA/VOMITING Senna/Docusate Sodium (Senokot-S, Letty-Colace) 2 tablet PO BID [facility] Sodium Chloride () 5 - 30 ml IV UD PRN PRN Reason: SALINE FLUSH Code Visit Office Visits / Consults: 78068 IP Consult L5
[2018-04-02 13:15] LABS: Bedside Glucose 214 mg/dL (70-110)
[2018-04-02] MEDS: Acetaminophen 500 MG Tablet 1000 MG PO ×2 (14:13→22:15)
[2018-04-02] MEDS: Ondansetron 4 MG/2 ML Vial IV (14:15)
--- NOTE | 2018-04-02 16:37 | CHAPLAIN ---
Type of Pastoral Visit _x__ Initial Visit ___ Follow-up Visit ___ On-call Visit ___ General Patient Visit ___ Spiritual Assessment ___ Family Conference ___ Bereavement ___ Rapid Response ___ Code Blue ___ Other (describe below) Pastoral Care Referral From _x__ Patient ___ Family ___ Nurse ___ Physician ___ Software Controls Engineer ___ Roll Mechanic ___ Other (describe below) Sacrament/Intervention _x__ Active listening ___ Anointing ___ Tenriism ___ Bereavement ___ Communion ___ Rosalee exploration ___ ___ Life review _x__ Prayer ___ Reconciliation ___ Sacrament of Sick ___ Supportive presence ___ Wedding ___ Other (describe below) Pastoral Comments
[2018-04-02] MEDS: Aspirin E.C. 81 MG Tablet PO (17:07)
[2018-04-02] MEDS: Glucerna Shake 120 ML LIQUID PO (17:11)
[2018-04-02] MEDS: Lisinopril 2.5 MG Tablet PO (17:18)
[2018-04-02 17:25] LABS: Bedside Glucose 211 mg/dL (70-110)
[2018-04-02] MEDS: Glimepiride 1 MG Tablet PO (22:13)
[2018-04-02] MEDS: Senna/Docusate Sodium 1 Tablet 2 TABLET PO (22:14)
[2018-04-02] MEDS: Famotidine 20 MG Tablet PO (22:14)
[2018-04-02 22:41] LABS: Bedside Glucose 229 mg/dL (70-110)
[2018-04-03] MEDS: oxyCODONE 5 MG Tablet PO ×4 (00:18→16:57)
[2018-04-03 02:34] VITALS: BP 139/58; PULSE 62; RESP 20; TEMP 36.6; O2SAT 99
[2018-04-03] MEDS: Morphine 2 MG/ML Syringe IV ×2 (02:37→15:31)
[2018-04-03] MEDS: 0.9% NaCl Peripheral Flush Adult/Peds IV ×3 (02:37→17:30)
[2018-04-03] MEDS: Acetaminophen 500 MG Tablet 1000 MG PO ×3 (06:10→21:30)
[2018-04-03 06:24] LABS: Hematocrit 30.6 % (37-47); Mean Corp Hgb Conc 32.7 g/gl (32-36); Mean Corpuscular Hgb 29.5 pg (27.0-32.0); Mean Corpuscular Volume 90.3 fL (81-99); Mean Platelet Vol. 10.5 fl (6.2-12.0); Platelet Count 213 K/mm3 (150-450); RBC Distribution Width CV 12.4 % (11.6-14.6); RBC Distribution Width SD 39.8 fl (35.1-43.9); Red Blood Count 3.39 M/mm3 (4.2-5.4); Scan Indicated on CBC? Y/N NO; White Blood Count 12.1 K/mm3 (4.4-11.0)
[2018-04-03 06:36] LABS: Anion Gap 7 (5-15); BUN 12 mg/dL (7-18); Calcium,Total 7.7 mg/dL (8.5-10.1); Chloride 109 mmol/L (98-107); Creatinine, Serum 0.75 mg/dL (0.55-1.02); EST Glomerular Filtration Rate 85 mL/min (>60); Est Glom Filt Rate - Afr Amer 103 mL/min (>60); Estimated Creatinine Clearance 75.37 ml/min; Glucose 109 mg/dL (74-106); Potassium 3.7 mmol/L (3.5-5.1); Sodium Level 141 mmol/L (136-145)
[2018-04-03 07:05] LABS: Bedside Glucose 106 mg/dL (70-110)
[2018-04-03] MEDS: Senna/Docusate Sodium 1 Tablet 2 TABLET PO ×2 (08:14→21:32)
[2018-04-03] MEDS: Glucerna Shake 120 ML LIQUID PO ×3 (08:15→17:05)
[2018-04-03] MEDS: Multivitamins,Therapeutic Tablet 1 TABLET PO (08:15)
[2018-04-03] MEDS: Aspirin E.C. 81 MG Tablet PO ×2 (08:15→16:56)
[2018-04-03] MEDS: Famotidine 20 MG Tablet PO ×2 (08:15→21:31)
--- NOTE | 2018-04-03 08:29 | PN_ITS ---
Subjective: Seen did complain of some spasms spasms and discomfort in the right thigh. Some low at 7.7 supplementation initiated Objective: GENERAL: cooperative HEENT: Atraumatic; moist oral mucosa EYES; Anicteric, Normal Conjunctiva NECK; supple, normal thyroid, no distended JVD. RESPIRATORY: Diminished to auscultation bilaterally, CARDIOVASCULAR: Regular S1 S2, no audible murmurs GI: soft, non-tender, normoactive bowel sounds, : No Renal angle tenderness; EXTREMITIES: No edema, no clubbing, no cyanosis. MUSCULOSKELETAL: R Knee in surgical NEURO: Awake; no lateralizing signs. SKIN: No Rash PSYCH; Normal affect Vitals/I&O's: Vital Signs Temp Pulse Resp BP Pulse Ox 97.8 F 62 20 H 139/58 H 99 04/03/18 02:34 04/03/18 02:34 04/03/18 02:34 04/03/18 02:34 04/03/18 02:34 Oxygen Delivery Method Room Air Weight: 95.98 kg Body Mass Index (BMI) 35.2 Finger Stick Blood Glucose 177 Intake and Output for Last 24 Hours 04/01/18 04/02/18 04/03/18 23:59 23:59 23:59 Intake Total 3286 / 3286 1832 / 1832 Output Total 1000 / 1000 1400 / 1400 Balance 2286 / 2286 432 / 432 Laboratory Results 04/02/18 08:21: POC Glucose 130 H 04/02/18 11:27: POC Glucose 177 H 04/02/18 12:30: POC Glucose 214 H 04/02/18 16:52: POC Glucose 211 H 04/02/18 22:12: POC Glucose 229 H 04/03/18 06:00: WBC 12.1 H, RBC 3.39 L, Hgb 10.0 L, Hct 30.6 L, MCV 90.3, MCH 2 9.5, MCHC 32.7, RDW 12.4, RDW Differential 39.8, Plt Count 213, MPV 10.5 04/03/18 06:00: Sodium 141, Potassium 3.7, Chloride 109 H, Carbon Dioxide 25.0, Anion Gap 7, BUN 12, Creatinine 0.75, Estim Creat Clear Calc 75.37, Est GFR (MDRD) Af Amer 103, Est GFR (MDRD) Non-Af 85, BUN/Creatinine Ratio 16.0, Glucose 109 H, Calcium 7.7 L 04/03/18 06:52: POC Glucose 106 Current Medications Acetaminophen (Tylenol) 1,000 mg PO Q8 [facility] Last Admin: 04/03/18 06:10 Dose: 1,000 mg Aspirin (Ecotrin) 81 [facility] Last Admin: 04/03/18 08:15 Dose: 81 mg Famotidine (Pepcid) 20 mg PO BID [facility] Last Admin: 04/03/18 08:15 Dose: 20 mg Glimepiride (Amaryl) 1 mg PO QHS [facility] Last Admin: 04/02/18 22:13 Dose: 1 mg Influenza Virus Vaccine Quadrival (Fluarix/Fluzone) 0.5 ml IM .ONCE ONE Stop: 04/03/18 10:01 Last Admin: 04/03/18 08:15 Dose: 0.5 ml Insulin Human Lispro (Humalog Kwikpen (Bkc)) 0 unit SC [facility]; Protocol Last Admin: 04/03/18 06:56 Dose: Not Given Ketorolac Tromethamine (Toradol) 15 mg IV Q6H PRN PRN PRN Reason: MILD-MOD PAIN (1-5/10) Lisinopril (Zestril) 2.5 mg PO QHS [facility] Last Admin: 04/02/18 17:18 Dose: 2.5 mg Lorazepam (Ativan) 0.5 mg PO DAILY PRN PRN PRN Reason: Vertigo Meclizine HCl (Antivert) 25 mg PO BID PRN PRN PRN Reason: Vertigo Meloxicam (Mobic) 7.5 mg PO BID [facility] Morphine Sulfate () 2 - 4 mg IV Q2H PRN PRN PRN Reason: SEVERE PAIN (6-10/10) Last Admin: 04/03/18 02:37 Dose: 2 mg Morphine Sulfate () 2 - 4 mg IV Q2H PRN PRN PRN Reason: SEVERE PAIN (6-10/10) Multivitamins (Multivitamin) 1 tablet PO DAILY@0800 [facility] Last Admin: 04/03/18 08:15 Dose: 1 tablet Nutritional Formula (Lactose Free) (Glucerna Shake) 120 ml PO TIDCM [facility] Last Admin: 04/03/18 08:15 Dose: 120 ml Ondansetron HCl (Zofran) 4 mg IV Q8H PRN PRN PRN Reason: NAUSEA Last Admin: 04/02/18 14:15 Dose: 4 mg Oxycodone HCl (Oxyir) 5 - 10 mg PO Q4H PRN PRN PRN Reason: MOD-SEVERE PAIN (4-04/02) Last Admin: 04/03/18 08:17 Dose: 10 mg Promethazine HCl (Phenergan) 12.5 mg IM Q6H PRN PRN; Protocol PRN Reason: NAUSEA/VOMITING Senna/Docusate Sodium (Senokot-S, Letty-Colace) 2 tablet PO BID [facility] Last Admin: 04/03/18 08:14 Dose: 2 tablet Sodium Chloride () 5 - 30 ml IV UD PRN PRN Reason: SALINE FLUSH Last Admin: 04/03/18 02:37 Dose: 10 ml Medical Necessity - Tobacco Use Smoking Status: Never smoker Tobacco Use: Non-smoker Assessment/Plan The patient is a 57 year old F with past medical history cigar for hypertension, primary osteoarthritis as well as diabetes mellitus type 2 who underwent right total knee arthroplasty by Dr. Rincon on 04/02/2018 on account of Right knee osteoarthritis primary, lateral femoral condyle avascular necrosis hospitalist service was consulted to assist with management of patient medical comorbidities including hypertension as well as diabetes mellitus type 2 1. Status post right total knee arthroplasty by Dr. Rincon on 04/02/2018 on account of Right knee osteoarthritis primary, lateral femoral condyle avascular necrosis patient postoperative orders regarding PT OT, DVT prophylaxis as well as pain management addressed by primary service 2. Diabetes mellitus type II: Patient is on Amaryl did continue and subsequently placed on Accu-Cheks a.c. and at bedtime and covered with sliding scale insulin 3. Hypertension-blood pressure controlled, home medications continued with dose adjustment as needed 4. Benign positional vertigo currently symptomatic 5. Generalized osteoarthritis 6. DVT prophylaxis as per primary service patient was started on aspirin 81mg p.o. twice daily 7. Hypocalcemia corrected per protocol Active Medications Acetaminophen (Tylenol) 1,000 mg PO Q8 [facility] Aspirin (Ecotrin) 81 mg PO BIDCM [facility] Famotidine (Pepcid) 20 mg PO BID [facility] Glimepiride (Amaryl) 1 mg PO QHS [facility] Clindamycin Phosphate 600 mg/ (Dextrose) 54 mls @ 162 mls/hr IV Q6H [facility] Stop: 04/03/18 03:49 Lactated Ringer's () 1,000 mls @ 125 mls/hr IV .Q8H [facility] Last Admin: 04/02/18 11:38 Dose: 125 mls/hr Influenza Virus Vaccine Quadrival (Fluarix/Fluzone) 0.5 ml IM .ONCE ONE Stop: 04/03/18 10:01 Insulin Human Lispro (Humalog Kwikpen (Bkc)) 0 unit SC [facility]; Protocol Ketorolac Tromethamine (Toradol) 15 mg IV Q6H PRN PRN PRN Reason: MILD-MOD PAIN (1-5/10) Lisinopril (Zestril) 2.5 mg PO QHS [facility] Lorazepam (Ativan) 0.5 mg PO DAILY PRN PRN PRN Reason: Vertigo Meclizine HCl (Antivert) 25 mg PO BID PRN PRN PRN Reason: Vertigo Meloxicam (Mobic) 7.5 mg PO BID [facility] Morphine Sulfate () 2 - 4 mg IV Q2H PRN PRN PRN Reason: SEVERE PAIN (6-10/10) Morphine Sulfate () 2 - 4 mg IV Q2H PRN PRN PRN Reason: SEVERE PAIN (6-10/10) Multivitamins (Multivitamin) 1 tablet PO DAILY@0800 [facility] Nutritional Formula (Lactose Free) (Glucerna Shake) 120 ml PO TIDCM [facility] Last Admin: 04/02/18 12:37 Dose: Not Given Ondansetron HCl (Zofran) 4 mg IV Q8H PRN PRN PRN Reason: NAUSEA Oxycodone HCl (Oxyir) 5 - 10 mg PO Q4H PRN PRN PRN Reason: MOD-SEVERE PAIN (4-10/10) Promethazine HCl (Phenergan) 12.5 mg IM Q6H PRN PRN; Protocol PRN Reason: NAUSEA/VOMITING Senna/Docusate Sodium (Senokot-S, Letty-Colace) 2 tablet PO BID [facility] Sodium Chloride () 5 - 30 ml IV UD PRN PRN Reason: SALINE FLUSH Code Visit Inpatient E&M: 92359 [facility]
[2018-04-03 08:34] VITALS: BP 135/67; PULSE 73; RESP 16; TEMP 36.6; O2SAT 99
--- NOTE | 2018-04-03 08:58 | PN.ORTHO_ITS ---
Subjective: The patient was sitting in bedside chair upon examination. Patient denies any chest pain, shortness of breath, dizziness, lightheadedness, nausea or vomiting, or calf pain. Pain is controlled on medications. No adverse overnight events. Patient did have some spasm overnight. Plan is for patient to go to senior living facility when pre-CERT has been obtained. Objective: Vital signs stable and afebrile. Patient is able to plantarflex and dorsiflex actively. Sensation is intact to light touch to saphenous, sural, superficial and deep peroneal, and tibial distribution. Dressing is with minimal drainage Negative Homans bilaterally, negative signs and symptoms of DVT. - Physical Exam General: Alert, Oriented x3, Cooperative, No apparent distress Vital Signs Temp Pulse Resp BP Pulse Ox 97.9 F 73 16 135/67 H 99 04/03/18 08:34 04/03/18 08:34 04/03/18 08:34 04/03/18 08:34 04/03/18 08:34 Oxygen Delivery Method Room Air Weight: 95.98 kg Body Mass Index (BMI) 35.2 Finger Stick Blood Glucose 177 Intake and Output for Last 24 Hours 04/01/18 04/02/18 04/03/18 23:59 23:59 23:59 Intake Total 3286 / 3286 1832 / 1832 Output Total 1000 / 1000 1400 / 1400 Balance 2286 / 2286 432 / 432 Laboratory Tests Past 24 Hrs 04/03/18 04/03/18 06:00 06:00 WBC 12.1 H RBC 3.39 L Hgb 10.0 L Hct 30.6 L MCV 90.3 MCH 29.5 MCHC 32.7 RDW 12.4 RDW Differential 39.8 Plt Count 213 MPV 10.5 Sodium 141 Potassium 3.7 Chloride 109 H Carbon Dioxide 25.0 Anion Gap 7 BUN 12 Creatinine 0.75 Estim Creat Clear Calc 75.37 Est GFR (MDRD) Af Amer 103 Est GFR (MDRD) Non-Af 85 BUN/Creatinine Ratio 16.0 Glucose 109 H Calcium 7.7 L POC Glucose 04/03/18 04/02/18 04/02/18 06:52 22:12 16:52 POC Glucose 106 229 H 211 H 04/02/18 04/02/18 12:30 11:27 POC Glucose 214 H 177 H Medical Necessity - Tobacco Use Smoking Status: Never smoker Tobacco Use: Non-smoker Assessment/Plan 1. S/P right total knee arthroplasty POD #1 2. Continue Pain Medications: Tylenol and OxyIR 3. DVT Prophylaxis: 81 mg aspirin twice daily for 4 weeks 4. PT/OT: Weightbearing as tolerated 5. H & H: 10.0/30.6, asymptomatic 6. Leukocytosis: Currently 12.1, afebrile. Patient did receive Decadron intraoperatively 7. Encouraged Incentive Spirometry 7. Continue postoperative medical management per medicine 8. Disposition: Plan is for discharge to senior living facility. We are waiting on pre-CERT for discharge.
--- NOTE | 2018-04-03 09:26 | DCINST_ITS ---
Discharge Diet: 1800 Calorie Control Diet Discharge Activity: May Not Drive May shower in (days): 1 - Turned dressing away from water Ice area for (Minutes): 20 - every hour while awake. Weight Bearing Status: Weight bearing as tolerated Elevate: Operative Extremity Additional Activity Instructions:: Wear elastic stockings for 2 weeks after your surgery. Call your doctor if your incision/area has: Continuous Slow Oozing, Sudden Increased Bleeding, Increased Pain/ Swelling, Increased Redness, Foul Smelling Discharge Call your doctor if you observe: Fever of 101 or Higher, Coldness, Increased Pain, Numbness or Tingling, Change in Color, Calf discomfort, Uncontrolled pain Remove Dressing in (days):: 3 - Okay to remove on April 07, 2018 Additional Instructions: Follow [place] [facility] postop instructions Take meloxicam 7.5 mg twice daily for 4 weeks postoperatively. Do not take your 15 mg meloxicam at home. Allergies/Adverse Reactions: Allergies Penicillins Allergy (Verified 04/02/18 08:02) Hives metformin Adverse Reaction (Verified 04/02/18 08:02) Diarrhea Medications to take at Discharge Glimepiride 1 mg PO QHS 05/09/15 Lisinopril 2.5 mg PO QHS 05/09/15 Multivitamin [Multiple Vitamins] 1 tab PO DAILY 02/04/18 L.acidoph,Paracasei, B.lactis [Probiotic] 1 each PO DAILY 03/25/18 Lorazepam [Ativan] 0.5 mg PO DAILY PRN PRN 03/25/18 Meclizine HCl [Antivert] 25 mg PO BID PRN PRN 03/25/18 Acetaminophen [Tylenol] 1,000 mg PO Q8 14 Days tablet 04/04/18 Aspirin E.C. [Ecotrin] 81 mg PO BID #0 04/04/18 Calcium Carb/Vitamin D [Os-Miguel 500MG + D] 1 tablet PO BIDCM tablet 04/04/18 Famotidine [Pepcid] 20 mg PO BID #30 tab 04/04/18 Meloxicam [Mobic] 7.5 mg PO BID #60 tab 04/04/18 Oxycodone [Oxyir] 5 - 10 mg PO Q4H PRN PRN 5 Days #60 tab 04/04/18 Senna/Docusate Sodium [Senokot-S] 2 tablet PO BID tablet 04/04/18 The following prescriptions were given: Oxycodone [Oxyir] 5 - 10 mg PO Q4H PRN PRN 5 Days #60 tab PRN Reason: Mod-Severe Pain (-04/02) Acetaminophen [Tylenol] 1,000 mg PO Q8 14 Days tablet Famotidine [Pepcid] 20 mg PO BID #30 tab Meloxicam [Mobic] 7.5 mg PO BID #60 tab Primary Care Physician: Abhijeet Rowe MD [Primary Care Provider] - Test Results: Test results from this visit will be discussed in further detail at your follow- up appointment, if applicable. Please Follow Up With: Willie Robertson PA-C When: 04/16/18 @ 11:00 am
--- NOTE | 2018-04-03 10:30 | CASEMGMT ---
Social Work Note SW received message from Opal in TCU stating that she submitted for pre-cert today. Plan: TCU pending pre-cert Crissy Dunaway CREDIT COLLECTIONS REP, INSTRUCTOR [employer]ATIC [employer]S
[2018-04-03] MEDS: Insulin Lispro 100 UNIT/ML INSULN.PEN SC ×3 (11:41→21:31)
[2018-04-03 11:51] LABS: Bedside Glucose 170 mg/dL (70-110)
--- NOTE | 2018-04-03 12:24 | CASEMGMT ---
Social Work Assessment Referral Date: 04/03/2018 Date of Assessment: 04/03/2018 Reason for consult: Initial assessment, discharge planning, pt reported no running water in home Informant: DELISA Personal Status: SW met with pt to confirm discharge plans. SW introduced self and role at [facility]. Pt is alert and orientated x4. [place] one story set up. Pt states that there is one step she has to take to get into the home. DME include walker. Pt states that she has no running water in her home. PT states that she doesn't have water running [place] access. Pt states that her cousins will bring her water that she uses to drink and to bath herself. SW asked pt if she wanted resources about possibly getting running water set up in her home and pt denied. Pt states that she is used to living the way she does. Pt confirms that her plan is to go to TCU at discharge. SW explained that pre-cert will need to be obtained. Pt states understanding. Pt denied additional needs or concerns at this time. Substance Abuse Hx: Pt denied Mental Health Hx: Pt states that she had some anxiety concerning her surgery and going back to work. SW offered support to pt. Pt denied wanting any resources. Plan: TCU pending pre-cert Crissy DAVALOS, INTERNET CONSULTANT
[2018-04-03 14:34] VITALS: BP 149/72; PULSE 65; RESP 16; TEMP 36.6; O2SAT 100
[2018-04-03 15:45] LABS: Bedside Glucose 171 mg/dL (70-110)
[2018-04-03] MEDS: Calcium Carb/Vitamin D 1 TABLET Tablet PO (16:56)
[2018-04-03] MEDS: Ondansetron 4 MG/2 ML Vial IV (17:31)
[2018-04-03 20:00] VITALS: O2SAT 100
[2018-04-03 20:57] VITALS: BP 158/71; PULSE 65; RESP 18; TEMP 36.6; O2SAT 100
[2018-04-03] MEDS: Glimepiride 1 MG Tablet PO (21:30)
[2018-04-03] MEDS: Lisinopril 2.5 MG Tablet PO (21:30)
[2018-04-03] MEDS: Meloxicam 7.5 MG Tablet PO (21:31)
[2018-04-03 21:41] LABS: Bedside Glucose 194 mg/dL (70-110)
[2018-04-04 02:34] VITALS: BP 143/68; PULSE 96; RESP 19; TEMP 36.7; O2SAT 97
[2018-04-04] MEDS: Acetaminophen 500 MG Tablet 1000 MG PO ×2 (06:15→14:07)
[2018-04-04 06:42] LABS: Hemoglobin 11.1 g/dl (12.0-15.0); Mean Corp Hgb Conc 31.7 g/gl (32-36); Mean Corpuscular Hgb 28.7 pg (27.0-32.0); Mean Corpuscular Volume 90.4 fL (81-99); Mean Platelet Vol. 10.2 fl (6.2-12.0); Platelet Count 229 K/mm3 (150-450); RBC Distribution Width CV 13.1 % (11.6-14.6); RBC Distribution Width SD 42.7 fl (35.1-43.9); Red Blood Count 3.87 M/mm3 (4.2-5.4); White Blood Count 11.1 K/mm3 (4.4-11.0)
[2018-04-04 06:43] LABS: Scan Indicated on CBC? Y/N NO
[2018-04-04 06:46] LABS: Bedside Glucose 98 mg/dL (70-110)
--- NOTE | 2018-04-04 06:59 | PN.ORTHO_ITS ---
Subjective: The patient was sitting in bedside chair upon examination. Patient denies any chest pain, shortness of breath, dizziness, lightheadedness, nausea or vomiting, or calf pain. Pain is controlled on medications. No adverse overnight events. Overall patient is doing well. We are currently waiting on pre-CERT from the insurance for patient to go to the transitional care unit at [facility]. Objective: Vital signs stable and afebrile. Patient is able to plantarflex and dorsiflex actively. Sensation is intact to light touch to saphenous, sural, superficial and deep peroneal, and tibial distribution. Dressing is with minimal drainage which has been stable postoperatively. Negative Homans bilaterally, negative signs and symptoms of DVT. - Physical Exam General: Alert, Oriented x3, Cooperative, No apparent distress Vital Signs Temp Pulse Resp BP Pulse Ox 98.1 F 96 19 H 143/68 H 97 04/04/18 02:34 04/04/18 02:34 04/04/18 02:34 04/04/18 02:34 04/04/18 02:34 Oxygen Delivery Method Room Air Weight: 95.98 kg Body Mass Index (BMI) 35.2 Finger Stick Blood Glucose 177 Intake and Output for Last 24 Hours 04/02/18 04/03/18 04/04/18 23:59 23:59 23:59 Intake Total 3286 / 3286 2162 / 2162 120 / 120 Output Total 1000 / 1000 1400 / 1400 Balance 2286 / 2286 762 / 762 120 / 120 Laboratory Tests Past 24 Hrs 04/04/18 06:10 WBC 11.1 H RBC 3.87 L Hgb 11.1 L Hct 35.0 L MCV 90.4 MCH 28.7 MCHC 31.7 L RDW 13.1 RDW Differential 42.7 Plt Count 229 MPV 10.2 POC Glucose 04/04/18 04/03/18 04/03/18 06:41 21:29 15:36 POC Glucose 98 194 H 171 H 04/03/18 04/03/18 11:35 06:52 POC Glucose 170 H 106 Medical Necessity - Tobacco Use Smoking Status: Never smoker Tobacco Use: Non-smoker Assessment/Plan 1. S/P right total knee arthroplasty POD #2 2. Continue Pain Medications: Tylenol and OxyIR 3. DVT Prophylaxis: 81 mg aspirin twice daily for 4 weeks 4. PT/OT: Weightbearing as tolerated 5. H & H: 11.1/35.0, asymptomatic 6. Leukocytosis: Currently 11.1, afebrile. Currently trending down. Patient did receive Decadron intraoperatively 7. Encouraged Incentive Spirometry 7. Continue postoperative medical management per medicine 8. Disposition: Plan is for discharge to correction facility. We are waiting on pre-CERT for discharge to the transitional care unit. Prescriptions are attached to the chart. Patient will follow-up per postop instructions..
--- NOTE | 2018-04-04 07:55 | PN_ITS ---
Subjective: Patient seen pain is much more tolerable. Has tolerated PT is well so far. Plan is for patient to be discharged to senior care facility pending insurance approval on 04/05/2018 Objective: GENERAL: cooperative HEENT: Atraumatic; moist oral mucosa EYES; Anicteric, Normal Conjunctiva NECK; supple, normal thyroid, no distended JVD. RESPIRATORY: Diminished to auscultation bilaterally, CARDIOVASCULAR: Regular S1 S2, no audible murmurs GI: soft, non-tender, normoactive bowel sounds, : No Renal angle tenderness; EXTREMITIES: No edema, no clubbing, no cyanosis. MUSCULOSKELETAL: R Knee in surgical NEURO: Awake; no lateralizing signs. SKIN: No Rash PSYCH; Normal affect Vitals/I&O's: Vital Signs Temp Pulse Resp BP Pulse Ox 98.1 F 96 19 H 143/68 H 97 04/04/18 02:34 04/04/18 02:34 04/04/18 02:34 04/04/18 02:34 04/04/18 02:34 Oxygen Delivery Method Room Air Weight: 95.98 kg Body Mass Index (BMI) 35.2 Finger Stick Blood Glucose 177 Intake and Output for Last 24 Hours 04/02/18 04/03/18 04/04/18 23:59 23:59 23:59 Intake Total 3286 / 3286 2162 / 2162 120 / 120 Output Total 1000 / 1000 1400 / 1400 Balance 2286 / 2286 762 / 762 120 / 120 Laboratory Results 04/03/18 11:35: POC Glucose 170 H 04/03/18 15:36: POC Glucose 171 H 04/03/18 21:29: POC Glucose 194 H 04/04/18 06:10: WBC 11.1 H, RBC 3.87 L, Hgb 11.1 L, Hct 35.0 L, MCV 90.4, MCH 28.7, MCHC 31.7 L, RDW 13.1, RDW Differential 42.7, Plt Count 229, MPV 10.2 04/04/18 06:41: POC Glucose 98 Current Medications Acetaminophen (Tylenol) 1,000 mg PO Q8 [facility] Last Admin: 04/04/18 06:15 Dose: 1,000 mg Aspirin (Ecotrin) 81 mg PO BIDCM [facility] Last Admin: 04/03/18 16:56 Dose: 81 mg Calcium/Vitamin D (Os-Miguel 500mg + D) [facility] Last Admin: 04/03/18 16:56 Dose: 1 tablet Famotidine (Pepcid) 20 mg PO BID [facility] Last Admin: 04/03/18 21:31 Dose: 20 mg Glimepiride (Amaryl) 1 mg PO QHS [facility] Last Admin: 04/03/18 21:30 Dose: 1 mg Insulin Human Lispro (Humalog Kwikpen (Bkc)) 0 unit SC [facility]; Protocol Last Admin: 04/04/18 06:44 Dose: Not Given Ketorolac Tromethamine (Toradol) 15 mg IV Q6H PRN PRN PRN Reason: MILD-MOD PAIN (1-5/10) [facility]) [facility] Last Admin: 04/03/18 21:30 Dose: 2.5 mg Lorazepam (Ativan) 0.5 mg PO DAILY PRN PRN PRN Reason: Vertigo Meclizine HCl (Antivert) 25 mg PO BID PRN PRN PRN Reason: Vertigo Meloxicam (Mobic) 7.5 mg PO BID [facility] Last Admin: 04/03/18 21:31 Dose: 7.5 mg Morphine Sulfate () 2 - 4 mg IV Q2H PRN PRN PRN Reason: SEVERE PAIN (6-10/10) Last Admin: 04/03/18 15:31 Dose: 2 mg Morphine Sulfate () 2 - 4 mg IV Q2H PRN PRN PRN Reason: SEVERE PAIN (6-10/10) Multivitamins (Multivitamin) 1 tablet PO DAILY@0800 [facility] Last Admin: 04/03/18 08:15 Dose: 1 tablet Nutritional Formula (Lactose Free) (Glucerna Shake) 120 ml PO TIDCM [facility] Last Admin: 04/03/18 17:05 Dose: 120 ml Ondansetron HCl (Zofran) 4 mg IV Q8H PRN PRN PRN Reason: NAUSEA Last Admin: 04/03/18 17:31 Dose: 4 mg Oxycodone HCl (Oxyir) 5 - 10 mg PO Q4H PRN PRN PRN Reason: MOD-SEVERE PAIN (4-10/10) Last Admin: 04/03/18 16:57 Dose: 10 mg Promethazine HCl (Phenergan) 12.5 mg IM Q6H PRN PRN; Protocol PRN Reason: NAUSEA/VOMITING Senna/Docusate Sodium (Senokot-S, Letty-Colace) 2 tablet PO BID [facility] Last Admin: 04/03/18 21:32 Dose: 2 tablet Sodium Chloride () 5 - 30 ml IV UD PRN PRN Reason: SALINE FLUSH Last Admin: 04/03/18 17:30 Dose: 10 ml Medical Necessity - Tobacco Use Smoking Status: Never smoker Tobacco Use: Non-smoker Assessment/Plan The patient is a 57 year old F with past medical history cigar for hypertension, primary osteoarthritis as well as diabetes mellitus type 2 who underwent right total knee arthroplasty by Dr. Rincon on 04/02/2018 on account of Right knee osteoarthritis primary, lateral femoral condyle avascular necrosis hospitalist service was consulted to assist with management of patient medical comorbidities including hypertension as well as diabetes mellitus type 2 1. Status post right total knee arthroplasty by Dr. Rincon on 04/02/2018 on account of Right knee osteoarthritis primary, lateral femoral condyle avascular necrosis patient postoperative orders regarding PT OT, DVT prophylaxis as well as pain management addressed by primary service 2. Diabetes mellitus type II: Patient is on Amaryl did continue and subsequently placed on Accu-Cheks a.c. and at bedtime and covered with sliding scale insulin 3. Hypertension-blood pressure controlled, home medications continued with dose adjustment as needed 4. Benign positional vertigo currently symptomatic 5. Generalized osteoarthritis 6. DVT prophylaxis as per primary service patient was started on aspirin 81mg p.o. twice daily 7. Hypocalcemia corrected per protocol Active Medications Acetaminophen (Tylenol) 1,000 mg PO Q8 [facility] Famotidine (Pepcid) 20 mg PO BID [facility] Glimepiride (Amaryl) 1 mg PO QHS [facility] Clindamycin Phosphate 600 mg/ (Dextrose) 54 mls @ 162 mls/hr IV Q6H [facility] Stop: 04/03/18 03:49 Lactated Ringer's () 1,000 mls @ 125 mls/hr IV .Q8H [facility] Last Admin: 04/02/18 11:38 Dose: 125 mls/hr Influenza Virus Vaccine Quadrival (Fluarix/Fluzone) 0.5 ml IM .ONCE ONE Stop: 04/03/18 10:01 Insulin Human Lispro (Humalog Kwikpen (Bkc)) 0 unit SC [facility]; Protocol Ketorolac Tromethamine (Toradol) 15 mg IV Q6H PRN PRN PRN Reason: MILD-MOD PAIN (1-5/10) Lisinopril (Zestril) 2.5 mg PO QHS [facility] Lorazepam (Ativan) 0.5 mg PO DAILY PRN PRN PRN Reason: Vertigo Meclizine HCl (Antivert) 25 mg PO BID PRN PRN PRN Reason: Vertigo Meloxicam (Mobic) 7.5 mg PO BID [facility] Morphine Sulfate () 2 - 4 mg IV Q2H PRN PRN PRN Reason: SEVERE PAIN (6-10/10) Morphine Sulfate () 2 - 4 mg IV Q2H PRN PRN PRN Reason: SEVERE PAIN (6-10/10) Multivitamins (Multivitamin) 1 tablet PO DAILY@0800 [facility] Nutritional Formula (Lactose Free) (Glucerna Shake) 120 ml PO TIDCM [facility] Last Admin: 04/02/18 12:37 Dose: Not Given Ondansetron HCl (Zofran) 4 mg IV Q8H PRN PRN PRN Reason: NAUSEA Oxycodone HCl (Oxyir) 5 - 10 mg PO Q4H PRN PRN PRN Reason: MOD-SEVERE PAIN (4-10/10) Promethazine HCl (Phenergan) 12.5 mg IM Q6H PRN PRN; Protocol PRN Reason: NAUSEA/VOMITING Senna/Docusate Sodium (Senokot-S, Letty-Colace) 2 tablet PO BID [facility] Sodium Chloride () 5 - 30 ml IV UD PRN PRN Reason: SALINE FLUSH Code Visit Inpatient E&M: 73695 Subs Hosp L2
[2018-04-04 07:58] VITALS: BP 130/64; PULSE 77; RESP 16; TEMP 36.6; O2SAT 99
[2018-04-04] MEDS: Aspirin E.C. 81 MG Tablet PO ×2 (08:02→16:09)
[2018-04-04] MEDS: Glucerna Shake 120 ML LIQUID PO ×3 (08:02→16:08)
[2018-04-04] MEDS: Calcium Carb/Vitamin D 1 TABLET Tablet PO ×2 (08:03→16:09)
[2018-04-04] MEDS: Multivitamins,Therapeutic Tablet 1 TABLET PO (08:03)
[2018-04-04] MEDS: oxyCODONE 5 MG Tablet PO (11:10)
[2018-04-04] MEDS: Meloxicam 7.5 MG Tablet PO (11:11)
[2018-04-04] MEDS: Famotidine 20 MG Tablet PO (11:12)
[2018-04-04] MEDS: Senna/Docusate Sodium 1 Tablet 2 TABLET PO (11:12)
[2018-04-04 11:20] LABS: Bedside Glucose 140 mg/dL (70-110)
[2018-04-04 14:11] VITALS: BP 156/70; PULSE 87; RESP 16; TEMP 36.7; O2SAT 100
--- NOTE | 2018-04-04 16:02 | CASEMGMT ---
Social Work Note SW in to inform pt that this worker is still waiting to get pre-cert from pt's insurance. Pt states understanding. ALEJANDRO placed a call to Opal in TCU and left her a message informing her this worker is leaving for the day and if pre-cert is obtained to call [phone]. Green sheet on chart in the event pre-cert is obtained. Plan: TCU pending pre-cert Crissy Dunaway BUILDINGS AND GROUNDS COORDINATOR, RETAIL TEAM LEADER
--- NOTE | 2018-04-04 16:06 | NURSING ---
recieved phone call from usama coleman replaced by [facility] for tcu stating got precert for tcu, pt may come today. primary RN informed, awaRe she is calling ortho.
[2018-04-04] MEDS: Insulin Lispro 100 UNIT/ML INSULN.PEN SC (16:09)
[2018-04-04 16:15] LABS: Bedside Glucose 180 mg/dL (70-110)
--- NOTE | 2018-04-04 16:27 | NURSING ---
Report called to SAM Knight, on TCU. Pt. transferring to room 14.
== END 2018-04-04 16:41 | disposition skilled nursing facility (03) | DRG 470 ==
LOC: ACINP 07:34 → MS3 08:27
PROVIDERS: Anesthesiology; Admitting Provider Specialist; Family Provider Family Medicine; PCP Family Medicine; Referring Provider Specialist; Visit Provider Specialist
PROC: 0SRC0J9 Replacement of Right Knee Joint with Synthetic Substitute, Cemented, Open Approach (ICD-10-PCS; CPT 27447; principal; 2018-04-02 09:00)
DX: M17.11 Unilateral primary osteoarthritis, right knee (principal); M87.9 Osteonecrosis, unspecified; E83.51 Hypocalcemia; E11.40 Type 2 diabetes mellitus with diabetic neuropathy, unspecified; I10 Essential (primary) hypertension; H81.10 Benign paroxysmal vertigo, unspecified ear; K21.9 Gastro-esophageal reflux disease without esophagitis; F32.9 Major depressive disorder, single episode, unspecified; F41.9 Anxiety disorder, unspecified; Z78.0 Asymptomatic menopausal state; Z79.84 Long term (current) use of oral hypoglycemic drugs; Z79.82 Long term (current) use of aspirin; Z79.899 Other long term (current) drug therapy
CPT/HCPCS: 36415; 73560; 80048; 82962; 83036; 85025; 85027; 87081; 88305; 88311; 93005; 97110; 97162; 97165; 97530; 97535; 97802; 99251; C1776; J7120; 90686; A4216; G0463; J2405

== ENCOUNTER 2018-04-04 17:00 | Inpatient (IN) | payer BC, SELFPAY ==
[2018-04-04 17:07] VITALS: BP 133/71; PULSE 88; RESP 16; TEMP 36.9; O2SAT 98
--- NOTE | 2018-04-04 17:07 | NURSING ---
ARRIVED FROM [facility] AT 1650
--- NOTE | 2018-04-04 17:10 | PCM.HP.STD ---
Problem List (1) Osteoarthritis of right knee Status: Chronic (2) Hypertension Status: Chronic (3) Benign paroxysmal positional vertigo Status: Chronic (4) Anxiety Status: Chronic (5) GERD (gastroesophageal reflux disease) Status: Chronic (6) DM2 (diabetes mellitus, type 2) Status: Chronic History of Present Illness Date of Admission: 04/04/18 Chief Complaint: Here for rehabilitation, strengthening, prior to discharge home alone. The patient is a 57 year old Female with below past medical history significant for severe osteoarthritis of right knee. 04/02/2018 Dr. Rincon performed right total knee replacement. 04/02/2018 Dr. Oneil consulted for medical management. Hypocalcemia corrected per protocol. 04/04/2018 Admit to TCU with debility, here for rehabilitation, strengthening, prior to discharge home alone. Past Medical History Past Medical History (Chronic Problems): Chronic Problems Essential (primary) hypertension (Chronic) DM2 (diabetes mellitus, type 2) (Chronic) Osteoarthritis of right knee (Chronic) Hypertension (Chronic) Benign paroxysmal positional vertigo (Chronic) Anxiety (Chronic) GERD (gastroesophageal reflux disease) (Chronic) history of benign paroxysmal positional vertigo (Chronic) Allergies Penicillins Allergy (Verified 04/02/18 08:02) Hives metformin Adverse Reaction (Verified 04/02/18 08:02) Diarrhea Home Medications: Ambulatory Orders Medication Instructions Recorded Glimepiride 1 mg PO QHS 05/09/15 Lisinopril 2.5 mg PO QHS 05/09/15 Multivitamin [Multiple Vitamins] 1 tab PO DAILY 02/04/18 L.acidoph,Paracasei, B.lactis 1 each PO DAILY 03/25/18 [Probiotic] Lorazepam [Ativan] 0.5 mg PO DAILY PRN PRN 03/25/18 Meclizine HCl [Antivert] 25 mg PO BID PRN PRN 03/25/18 Acetaminophen [Tylenol] 1,000 mg PO Q8 04/04/18 Aspirin E.C. 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 Lives: Alone Smoking Status: Never smoker Tobacco Use: Non-smoker Alcohol: None Drugs: None - *Family History Maternal History Items: Heart Disease Paternal History Items: Diabetes, Hypertension Review of Systems Constitutional: Denies: Chills, Fever, Weight Change HEENT: Denies: Head Aches, Sinus Congestion, Sinus Drainage Cardiovascular: Denies: Chest Pain, Palpitations Respiratory: Denies: Cough, Shortness of breath at rest, Sputum production Gastrointestinal: Denies: Abdominal Pain, Nausea, Vomiting Genitourinary: Denies: Dysuria Musculoskeletal: Denies: Joint Pain, Joint Tenderness Skin: Denies: Rash, Wounds Neurological: Denies: Numbness, Tingling, Focal weakness Psychiatric: Denies: Anxiety, Depression, Homicidal Ideations, Suicidal Ideations Hematologic/ Lymphatic: Denies: Easy Bruising, Easy Bleeding VTE Information - Inpt Only VTE Present on Admission: No VTE Mechan Device Prophylaxis: Knee High BRENDA Hose VTE Pharm Prophylaxis ordered?: Yes - Physical Exam General: Alert, Oriented x3, Cooperative HEENT: Atraumatic, PERRLA, EOMI, Normocephalic Neck: Supple, No JVD, Negative Carotid Bruits Lungs: Clear to auscultation, Normal air movement Cardiovascular: Regular rate, No murmurs Abdomen: Bowel Sounds Present, Soft, Non Tender Extremities: No edema, Capillary Refill Less than 3 Seconds Skin: No rashes, No breakdown, Incision - Right knee clean, dry, intact. Musculoskeletal: No Tenderness to Palpation of Joints or Extremities Neurological: Cranial nerves II-XII grossly intact Psych/Mental Status: Normal Affect, Appropriate Finger Stick Blood Glucose 177 Assessment/Plan 57 year old female with below past medical history hospitalized for left total knee replacement 04/02/[address] Rincon, admitted to TCU with debility, here for rehabilitation, strengthening, prior to discharge home alone. Debility - PT/OT. Pain - Tylenol 1000MG Q8H, Oxycodone 5-10MG Q4H PRN moderate to severe pain. Bowel - Miralax 17GM daily, Senna/colace 2 tablets BID, Dulcolax 10MG PO daily PRN. Pneumonia vaccination - Administer Prevnar 13 and/or Pneumovax 23 as necessary. DVT prophylaxis - Aspirin 81MG twice daily. Calcium deficiency - Calcium w/ D 1 tablet BID. GERD - Famotidine 20MG twice daily. Diabetes Mellitus II - Glimepiride 1MG QHS, Lisinopril 2.5MG QHS, monitor blood sugars. GI prophylaxis - Lactobacillus acidophilus 1 tablet daily. Vertigo - Meclizine 25MG twice daily PRN, Ativan 0.5MG daily PRN. Osteoarthritis - Meloxicam 7.5MG twice daily. Nutrition - MVI daily. Osteoarthritis right knee - status post right total knee replacement, outpatient follow up with Dr. Rincon.
--- NOTE | 2018-04-04 17:15 | HP.PCM_ITS ---
Problem List (1) Osteoarthritis of right knee Status: Chronic (2) Hypertension Status: Chronic (3) Benign paroxysmal positional vertigo Status: Chronic (4) Anxiety Status: Chronic (5) GERD (gastroesophageal reflux disease) Status: Chronic (6) DM2 (diabetes mellitus, type 2) Status: Chronic History of Present Illness Date of Admission: 04/04/18 Chief Complaint: Here for rehabilitation, strengthening, prior to discharge home alone. The patient is a 57 year old Female with below past medical history significant for severe osteoarthritis of right knee. 04/02/2018 Dr. Rincon performed right total knee replacement. 04/02/2018 Dr. Oneil consulted for medical management. Hypocalcemia corrected per protocol. 04/04/2018 Admit to TCU with debility, here for rehabilitation, strengthening, prior to discharge home alone. Past Medical History Past Medical History (Chronic Problems): Chronic Problems Essential (primary) hypertension (Chronic) DM2 (diabetes mellitus, type 2) (Chronic) Osteoarthritis of right knee (Chronic) Hypertension (Chronic) Benign paroxysmal positional vertigo (Chronic) Anxiety (Chronic) GERD (gastroesophageal reflux disease) (Chronic) history of benign paroxysmal positional vertigo (Chronic) Allergies Penicillins Allergy (Verified 04/02/18 08:02) Hives metformin Adverse Reaction (Verified 04/02/18 08:02) Diarrhea Home Medications: Ambulatory Orders Medication Instructions Recorded Glimepiride 1 mg PO QHS 05/09/15 Lisinopril 2.5 mg PO QHS 05/09/15 Multivitamin [Multiple Vitamins] 1 tab PO DAILY 02/04/18 L.acidoph,Paracasei, B.lactis 1 each PO DAILY 03/25/18 [Probiotic] Lorazepam [Ativan] 0.5 mg PO DAILY PRN PRN 03/25/18 Meclizine HCl [Antivert] 25 mg PO BID PRN PRN 03/25/18 Acetaminophen [Tylenol] 1,000 mg PO Q8 04/04/18 Aspirin E.C. 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 Lives: Alone Smoking Status: Never smoker Tobacco Use: Non-smoker Alcohol: None Drugs: None - *Family History Maternal History Items: Heart Disease Paternal History Items: Diabetes, Hypertension Review of Systems Constitutional: Denies: Chills, Fever, Weight Change HEENT: Denies: Head Aches, Sinus Congestion, Sinus Drainage Cardiovascular: Denies: Chest Pain, Palpitations Respiratory: Denies: Cough, Shortness of breath at rest, Sputum production Gastrointestinal: Denies: Abdominal Pain, Nausea, Vomiting Genitourinary: Denies: Dysuria Musculoskeletal: Denies: Joint Pain, Joint Tenderness Skin: Denies: Rash, Wounds Neurological: Denies: Numbness, Tingling, Focal weakness Psychiatric: Denies: Anxiety, Depression, Homicidal Ideations, Suicidal Ideations Hematologic/ Lymphatic: Denies: Easy Bruising, Easy Bleeding VTE Information - Inpt Only VTE Present on Admission: No VTE Mechan Device Prophylaxis: Knee High BRENDA Hose VTE Pharm Prophylaxis ordered?: Yes - Physical Exam General: Alert, Oriented x3, Cooperative HEENT: Atraumatic, PERRLA, EOMI, Normocephalic Neck: Supple, No JVD, Negative Carotid Bruits Lungs: Clear to auscultation, Normal air movement Cardiovascular: Regular rate, No murmurs Abdomen: Bowel Sounds Present, Soft, Non Tender Extremities: No edema, Capillary Refill Less than 3 Seconds Skin: No rashes, No breakdown, Incision - Right knee clean, dry, intact. Musculoskeletal: No Tenderness to Palpation of Joints or Extremities Neurological: Cranial nerves II-XII grossly intact Psych/Mental Status: Normal Affect, Appropriate Finger Stick Blood Glucose 177 Assessment/Plan 57 year old female with below past medical history hospitalized for left total knee replacement 04/02/[address] Rincon, admitted to TCU with debility, here for rehabilitation, strengthening, prior to discharge home alone. * Debility - PT/OT. * Pain - Tylenol 1000MG Q8H, Oxycodone 5-10MG Q4H PRN moderate to severe pain. * Bowel - Miralax 17GM daily, Senna/colace 2 tablets BID, Dulcolax 10MG PO daily PRN. * Pneumonia vaccination - Administer Prevnar 13 and/or Pneumovax 23 as necessary. * DVT prophylaxis - Aspirin 81MG twice daily. * Calcium deficiency - Calcium w/ D 1 tablet BID. * GERD - Famotidine 20MG twice daily. * Diabetes Mellitus II - Glimepiride 1MG QHS, Lisinopril 2.5MG QHS, monitor blood sugars. * GI prophylaxis - Lactobacillus acidophilus 1 tablet daily. * Vertigo - Meclizine 25MG twice daily PRN, Ativan 0.5MG daily PRN. * Osteoarthritis - Meloxicam 7.5MG twice daily. * Nutrition - MVI daily. * Osteoarthritis right knee - status post right total knee replacement, outpatient follow up with Dr. Rincon.
[2018-04-04 17:43] VITALS: BMI 35.9
[2018-04-04 17:49] VITALS: BMI 35.9
[2018-04-04] MEDS: Glimepiride 1 MG Tablet PO (21:20)
[2018-04-04] MEDS: Acetaminophen 500 MG Tablet 1000 MG PO (21:20)
[2018-04-04] MEDS: Lisinopril 2.5 MG Tablet PO (21:20)
[2018-04-04 21:26] LABS: Bedside Glucose 174 mg/dL (70-110)
[2018-04-05] MEDS: Acetaminophen 500 MG Tablet 1000 MG PO ×3 (05:08→21:38)
[2018-04-05] MEDS: Famotidine 20 MG Tablet PO ×2 (05:08→16:52)
[2018-04-05] MEDS: Meloxicam 7.5 MG Tablet PO ×2 (05:08→16:52)
[2018-04-05] MEDS: Menthol/Lanolin/Calamine/Znox 113 GM Tube 1 APPLIC TOPICAL (05:11)
[2018-04-05 07:11] LABS: Bedside Glucose 104 mg/dL (70-110)
[2018-04-05 08:06] LABS: Absolute Lymphocyte Count 1.33 X10^3/ul (0.83-4.51); Absolute Neutrophil Count 6.5 X10^3/uL (2.0-7.7); Basophil# 0.02 X10^3/uL; Basophil% 0.2 % (0-1); Eosinophil# 0.19 X10^3/uL; Eosinophils% 2.1 % (0-5); Hemoglobin 10.2 g/dl (12.0-15.0); Lymphocyte # 1.33 X10^3/ul (4.0); Lymphocyte % 14.9 % (19-41); Mean Corp Hgb Conc 31.9 g/gl (32-36); Mean Corpuscular Hgb 29.1 pg (27.0-32.0); Mean Corpuscular Volume 91.2 fL (81-99); Mean Platelet Vol. 10.5 fl (6.2-12.0); Monocyte# 0.91 X10^3/uL; Monocyte% 10.2 % (0-10); Neutrophil # 6.46 X10^3/uL (2.7-7.7); Neutrophil % 72.4 % (47-70); Platelet Count 232 K/mm3 (150-450); RBC Distribution Width CV 12.6 % (11.6-14.6); RBC Distribution Width SD 41.1 fl (35.1-43.9); Red Blood Count 3.51 M/mm3 (4.2-5.4); White Blood Count 8.9 K/mm3 (4.4-11.0)
[2018-04-05 08:07] LABS: POSITIVE COUNT NO; POSITIVE DIFFERENTIAL NO; POSITIVE MORPHOLOGY NO
[2018-04-05 08:24] LABS: Anion Gap 7 (5-15); BUN 10 mg/dL (7-18); BUN/Creat Ratio 17.2 RATIO (10-20); Calcium,Total 8.1 mg/dL (8.5-10.1); Chloride 107 mmol/L (98-107); Creatinine, Serum 0.58 mg/dL (0.55-1.02); EST Glomerular Filtration Rate 114 mL/min (>60); Est Glom Filt Rate - Afr Amer 137 mL/min (>60); Estimated Creatinine Clearance 97.46 ml/min; Glucose 106 mg/dL (74-106); Potassium 3.8 mmol/L (3.5-5.1); Sodium Level 142 mmol/L (136-145)
[2018-04-05] MEDS: Calcium Carb/Vitamin D 1 TABLET Tablet PO ×2 (09:17→16:52)
[2018-04-05] MEDS: Aspirin E.C. 81 MG Tablet PO ×2 (09:17→16:52)
[2018-04-05 11:35] LABS: Bedside Glucose 178 mg/dL (70-110)
[2018-04-05] MEDS: Tuberculin,Purif.prot.deriv. 50 TU/ML Vial 5 ML ID (12:09)
[2018-04-05] MEDS: Multivitamins,Therapeutic Tablet 1 TABLET PO (12:09)
--- NOTE | 2018-04-05 15:25 | NURSING ---
pt's home norco and ativan sent home with her friend, Lali, per her request. This RN and SAM Beltre verified 15 norco and 13 ativan were in the bottles and sent with Lali
[2018-04-05 16:00] VITALS: BP 143/84; PULSE 82; RESP 20; TEMP 36.3; O2SAT 97
[2018-04-05 17:06] LABS: Bedside Glucose 158 mg/dL (70-110)
[2018-04-05 21:16] LABS: Bedside Glucose 202 mg/dL (70-110)
[2018-04-05] MEDS: Glimepiride 1 MG Tablet PO (21:38)
[2018-04-05] MEDS: Lisinopril 2.5 MG Tablet PO (21:39)
[2018-04-06] MEDS: Acetaminophen 500 MG Tablet 1000 MG PO ×3 (04:02→21:41)
[2018-04-06] MEDS: Meloxicam 7.5 MG Tablet PO ×2 (04:02→17:31)
[2018-04-06] MEDS: Famotidine 20 MG Tablet PO ×2 (04:02→17:31)
[2018-04-06] MEDS: Menthol/Lanolin/Calamine/Znox 113 GM Tube 1 APPLIC TOPICAL (04:04)
[2018-04-06 07:06] LABS: Bedside Glucose 107 mg/dL (70-110)
[2018-04-06] MEDS: Calcium Carb/Vitamin D 1 TABLET Tablet PO ×2 (08:30→17:30)
[2018-04-06] MEDS: Aspirin E.C. 81 MG Tablet PO ×2 (08:31→17:30)
[2018-04-06 11:11] LABS: Bedside Glucose 122 mg/dL (70-110)
[2018-04-06] MEDS: Multivitamins,Therapeutic Tablet 1 TABLET PO (13:22)
[2018-04-06 16:00] VITALS: BP 148/87; PULSE 72; RESP 20; TEMP 36.3; O2SAT 98
[2018-04-06 17:10] LABS: Bedside Glucose 97 mg/dL (70-110)
[2018-04-06 21:25] LABS: Bedside Glucose 120 mg/dL (70-110)
[2018-04-06] MEDS: Lisinopril 2.5 MG Tablet PO (21:41)
[2018-04-06] MEDS: Glimepiride 1 MG Tablet PO (21:41)
[2018-04-07] MEDS: Meloxicam 7.5 MG Tablet PO ×2 (06:02→16:55)
[2018-04-07] MEDS: Famotidine 20 MG Tablet PO ×2 (06:03→16:54)
[2018-04-07] MEDS: Acetaminophen 500 MG Tablet 1000 MG PO ×3 (06:03→21:01)
[2018-04-07] MEDS: Menthol/Lanolin/Calamine/Znox 113 GM Tube 1 APPLIC TOPICAL (06:05)
[2018-04-07 07:10] LABS: Bedside Glucose 96 mg/dL (70-110)
[2018-04-07] MEDS: Aspirin E.C. 81 MG Tablet PO ×2 (08:44→16:54)
[2018-04-07] MEDS: Calcium Carb/Vitamin D 1 TABLET Tablet PO ×2 (08:44→16:54)
--- NOTE | 2018-04-07 13:27 | CASEMGMT ---
Reviewed and approved attached social work student documentation. Nina MOYA, TURN DOWN ATTENDANT
[2018-04-07] MEDS: Multivitamins,Therapeutic Tablet 1 TABLET PO (13:28)
--- NOTE | 2018-04-07 14:40 | PCM.PN.RX ---
<Sotero Leach D - Last Filed: 04/07/18 14:40> Progress Note - Pharmacy Subjective: TCU Admission Objective: Allergies Penicillins Allergy (Verified 04/02/18 08:02) Hives metformin Adverse Reaction (Verified 04/02/18 08:02) Diarrhea Current Medications Generic Name Dose Route Start Last Admin Trade Name Freq PRN Reason Stop Dose Admin Acetaminophen 1,000 mg 04/04/18 22:00 04/07/18 13:28 Tylenol PO 1,000 mg Q8 LÁZARO Administration Aspirin 81 mg 04/04/18 18:00 04/07/18 08:44 Ecotrin PO 05/04/18 18:01 81 mg BIDCM LÁZARO Administration Bisacodyl 10 mg 04/04/18 17:29 Dulcolax PO DAILY PRN Constipation Calamine/Phenol 1 applic 04/06/18 06:00 04/07/18 06:05 Calmoseptine Ointment TOPICAL 1 applicatio DAILY LÁZARO Administration Protocol Calcium/Vitamin D 1 tablet 04/05/18 08:00 04/07/18 08:44 Os-Miguel 500mg + D PO 1 tablet BIDCM LÁZARO Administration Famotidine 20 mg 04/04/18 18:00 04/07/18 06:03 Pepcid PO 20 mg BID LÁZARO Administration Glimepiride 1 mg 04/04/18 22:00 04/06/18 21:41 Amaryl PO 1 mg QHS LÁZARO Administration Lactobacillus Acidophilus 1 tablet 04/05/18 06:00 04/07/18 06:03 Acidophilus PO 1 tablet DAILY LÁZARO Administration Lisinopril 2.5 mg 04/04/18 22:00 04/06/18 21:41 Zestril PO 2.5 mg QHS LÁZARO Administration Lorazepam 0.5 mg 04/04/18 17:13 Ativan PO DAILY PRN PRN Vertigo Meclizine HCl 25 mg 04/04/18 17:13 Antivert PO BID PRN PRN Vertigo Meloxicam 7.5 mg 04/04/18 18:00 04/07/18 06:02 Mobic PO 05/02/18 18:01 7.5 mg BID LÁZARO Administration Multivitamins 1 tablet 04/05/18 12:00 04/07/18 13:28 Multivitamin PO 1 tablet DAILY@1200 LÁZARO Administration Oxycodone HCl 5 - 10 mg 04/04/18 17:13 Oxyir PO Q4H PRN PRN MOD-SEVERE PAIN (4-10/10) Polyethylene Glycol 17 gm 04/05/18 06:00 04/07/18 06:05 Miralax PO Not Given DAILY [facility] Senna/Docusate Sodium 2 tablet 04/04/18 18:00 04/07/18 06:05 Senokot-S, Letty-Colace PO Not Given BID LÁZARO Tuberculin PPD 5 tu 04/12/18 10:00 Tubersol, Aplisol, Ppd ID 04/12/18 10:01 X1 ONE Problem List Osteoarthritis of right knee (Chronic) Hypertension (Chronic) Benign paroxysmal positional vertigo (Chronic) Anxiety (Chronic) GERD (gastroesophageal reflux disease) (Chronic) Vital Signs Temp Pulse Resp BP Pulse Ox 97.4 F L 72 20 H 148/87 H 98 04/06/18 16:00 04/06/18 16:00 04/06/18 16:00 04/06/18 16:00 04/06/18 16:00 Oxygen Delivery Method Room Air Weight: 99.5 kg Body Mass Index (BMI) 35.9 Finger Stick Blood Glucose 177 Sodium 142 mmol/L (136-145) 04/05/18 07:48 Potassium 3.8 mmol/L (3.5-5.1) 04/05/18 07:48 Chloride 107 mmol/L (98-107) 04/05/18 07:48 Carbon Dioxide 28.0 mmol/L (21.0-32.0) 04/05/18 07:48 Anion Gap 7 (5-15) 04/05/18 07:48 BUN 10 mg/dL (7-18) 04/05/18 07:48 Creatinine 0.58 mg/dL (0.55-1.02) 04/05/18 07:48 Est GFR (MDRD) Af Amer 137 mL/min (>60) 04/05/18 07:48 Est GFR (MDRD) Non-Af 114 mL/min (>60) 04/05/18 07:48 BUN/Creatinine Ratio 17.2 RATIO (10-20) 04/05/18 07:48 Glucose 106 mg/dL (74-106) 04/05/18 07:48 Assessment/Plan: 1) Pain APAP, meloxicam, oxycodone for moderate-severe pain. Continue to monitor daily pain scores, prn medication use. * 2) DM2 Glimepiride at HS, ASA, lisinopril. Continue to monitor BGT, s/s hyper/hypoglycemia, BP/HR, renal function, electrolytes. * Please clarify time glimepiride is given. Should typically be given with a meal to avoid hypoglycemia and maximize efficacy. * 3) Vertigo Lorazepam, meclizine. Continue to monitor prn medication use. * Both medications ordered with same prn reason. Please clarify and update. Thank you. 4) Nutrition Ca/D, multivitamin. Continue to monitor clinically. 5) GI Famotidine, lactobacillus. Continue to monitor s/s GI distress. Psychotropic Medications: None Unnecessary Medications: None Bowel Regimen: 6) Senna/s, PEG, prn bisacodyl. Continue to monitor prn medication use, for constipation/diarrhea. Date of Note:: 04/07/18 - Provider Comments Provider responsibility: Provider responsible to enter orders to implement recommendations <Cody Key Chi - Last Filed: 04/07/18 16:28> Progress Note - Pharmacy Subjective: [] Objective: Allergies Penicillins Allergy (Verified 04/02/18 08:02) Hives metformin Adverse Reaction (Verified 04/02/18 08:02) Diarrhea Current Medications Generic Name Dose Route Start Last Admin Trade Name Freq PRN Reason Stop Dose Admin Acetaminophen 1,000 mg 04/04/18 22:00 04/07/18 13:28 Tylenol PO 1,000 mg Q8 LÁZARO Administration Aspirin 81 mg 04/04/18 18:00 04/07/18 08:44 Ecotrin PO 05/04/18 18:01 81 mg BIDCM LÁZARO Administration Bisacodyl 10 mg 04/04/18 17:29 Dulcolax PO DAILY PRN Constipation Calamine/Phenol 1 applic 04/06/18 06:00 04/07/18 06:05 Calmoseptine Ointment TOPICAL 1 applicatio DAILY LÁZARO Administration Protocol Calcium/Vitamin D 1 tablet 04/05/18 08:00 04/07/18 08:44 Os-Miguel 500mg + D PO 1 tablet BIDCM LÁZARO Administration Famotidine 20 mg 04/04/18 18:00 04/07/18 06:03 Pepcid PO 20 mg BID LÁZARO Administration Glimepiride 1 mg 04/04/18 22:00 04/06/18 21:41 Amaryl PO 1 mg QHS [facility] Administration Lactobacillus Acidophilus 1 tablet 04/05/18 06:00 04/07/18 06:03 Acidophilus PO 1 tablet DAILY LÁZARO Administration Lisinopril 2.5 mg 04/04/18 22:00 04/06/18 21:41 Zestril PO 2.5 mg QHS LÁZARO Administration Lorazepam 0.5 mg 04/04/18 17:13 Ativan PO DAILY PRN PRN Vertigo Meclizine HCl 25 mg 04/04/18 17:13 Antivert PO BID PRN PRN Vertigo Meloxicam 7.5 mg 04/04/18 18:00 04/07/18 06:02 Mobic PO 05/02/18 18:01 7.5 mg BID LÁZARO Administration Multivitamins 1 tablet 04/05/18 12:00 04/07/18 13:28 Multivitamin PO 1 tablet DAILY@1200 [facility] Administration Oxycodone HCl 5 - 10 mg 04/04/18 17:13 Oxyir PO Q4H PRN PRN MOD-SEVERE PAIN (4-10/10) Polyethylene Glycol 17 gm 04/05/18 06:00 04/07/18 06:05 Miralax PO Not Given DAILY [facility] Senna/Docusate Sodium 2 tablet 04/04/18 18:00 04/07/18 06:05 Senokot-S, Letty-Colace PO Not Given BID [facility] Tuberculin PPD 5 tu 04/12/18 10:00 Tubersol, Aplisol, Ppd ID 04/12/18 10:01 X1 ONE Problem List Osteoarthritis of right knee (Chronic) Hypertension (Chronic) Benign paroxysmal positional vertigo (Chronic) Anxiety (Chronic) GERD (gastroesophageal reflux disease) (Chronic) Vital Signs Temp Pulse Resp BP Pulse Ox 96.4 F L 91 14 158/73 H 97 04/07/18 15:52 04/07/18 15:52 04/07/18 15:52 04/07/18 15:52 04/07/18 15:52 Oxygen Delivery Method Room Air Weight: 99.5 kg Body Mass Index (BMI) 35.9 Finger Stick Blood Glucose 177 Sodium 142 mmol/L (136-145) 04/05/18 07:48 Potassium 3.8 mmol/L (3.5-5.1) 04/05/18 07:48 Chloride 107 mmol/L (98-107) 04/05/18 07:48 Carbon Dioxide 28.0 mmol/L (21.0-32.0) 04/05/18 07:48 Anion Gap 7 (5-15) 04/05/18 07:48 BUN 10 mg/dL (7-18) 04/05/18 07:48 Creatinine 0.58 mg/dL (0.55-1.02) 04/05/18 07:48 Est GFR (MDRD) Af Amer 137 mL/min (>60) 04/05/18 07:48 Est GFR (MDRD) Non-Af 114 mL/min (>60) 04/05/18 07:48 BUN/Creatinine Ratio 17.2 RATIO (10-20) 04/05/18 07:48 Glucose 106 mg/dL (74-106) 04/05/18 07:48 Assessment/Plan: Psychotropic Medications: Unnecessary Medications: Bowel Regimen: - Provider Comments Provider responsibility: Provider responsible to enter orders to implement recommendations Provider Comments to Recommendations by Pharmacy: Agree
--- NOTE | 2018-04-07 14:46 | PHA.CONS_ITS ---
<Sotero Leach D - Last Filed: 04/07/18 14:40> Progress Note - Pharmacy Subjective: TCU Admission Objective: Allergies Penicillins Allergy (Verified 04/02/18 08:02) Hives metformin Adverse Reaction (Verified 04/02/18 08:02) Diarrhea Current Medications Generic Name Dose Route Start Last Admin Trade Name Freq PRN Reason Stop Dose Admin Acetaminophen 1,000 mg 04/04/18 22:00 04/07/18 13:28 Tylenol PO 1,000 mg Q8 LÁZARO Administration Aspirin 81 mg 04/04/18 18:00 04/07/18 08:44 Ecotrin PO 05/04/18 18:01 81 mg BIDCM LÁZARO Administration Bisacodyl 10 mg 04/04/18 17:29 Dulcolax PO DAILY PRN Constipation Calamine/Phenol 1 applic 04/06/18 06:00 04/07/18 06:05 Calmoseptine Ointment TOPICAL 1 applicatio DAILY LÁZARO Administration Protocol Calcium/Vitamin D 1 tablet 04/05/18 08:00 04/07/18 08:44 Os-Miguel 500mg + D PO 1 tablet BIDCM LÁZARO Administration Famotidine 20 mg 04/04/18 18:00 04/07/18 06:03 Pepcid PO 20 mg BID LÁZARO Administration Glimepiride 1 mg 04/04/18 22:00 04/06/18 21:41 Amaryl PO 1 mg QHS LÁZARO Administration Lactobacillus Acidophilus 1 tablet 04/05/18 06:00 04/07/18 06:03 Acidophilus PO 1 tablet DAILY LÁZARO Administration Lisinopril 2.5 mg 04/04/18 22:00 04/06/18 21:41 Zestril PO 2.5 mg QHS LÁZARO Administration Lorazepam 0.5 mg 04/04/18 17:13 Ativan PO DAILY PRN PRN Vertigo Meclizine HCl 25 mg 04/04/18 17:13 Antivert PO BID PRN PRN Vertigo Meloxicam 7.5 mg 04/04/18 18:00 04/07/18 06:02 Mobic PO 05/02/18 18:01 7.5 mg BID LÁZARO Administration Multivitamins 1 tablet 04/05/18 12:00 04/07/18 13:28 Multivitamin PO 1 tablet DAILY@1200 LÁZARO Administration Oxycodone HCl 5 - 10 mg 04/04/18 17:13 Oxyir PO Q4H PRN PRN MOD-SEVERE PAIN (4-10/10) Polyethylene Glycol 17 gm 04/05/18 06:00 04/07/18 06:05 Miralax PO Not Given DAILY [facility] Senna/Docusate Sodium 2 tablet 04/04/18 18:00 04/07/18 06:05 Senokot-S, Letty-Colace PO Not Given BID LÁZARO Tuberculin PPD 5 tu 04/12/18 10:00 Tubersol, Aplisol, Ppd ID 04/12/18 10:01 X1 ONE Problem List Osteoarthritis of right knee (Chronic) Hypertension (Chronic) Benign paroxysmal positional vertigo (Chronic) Anxiety (Chronic) GERD (gastroesophageal reflux disease) (Chronic) Vital Signs Temp Pulse Resp BP Pulse Ox 97.4 F L 72 20 H 148/87 H 98 04/06/18 16:00 04/06/18 16:00 04/06/18 16:00 04/06/18 16:00 04/06/18 16:00 Oxygen Delivery Method Room Air Weight: 99.5 kg Body Mass Index (BMI) 35.9 Finger Stick Blood Glucose 177 Sodium 142 mmol/L (136-145) 04/05/18 07:48 Potassium 3.8 mmol/L (3.5-5.1) 04/05/18 07:48 Chloride 107 mmol/L (98-107) 04/05/18 07:48 Carbon Dioxide 28.0 mmol/L (21.0-32.0) 04/05/18 07:48 Anion Gap 7 (5-15) 04/05/18 07:48 BUN 10 mg/dL (7-18) 04/05/18 07:48 Creatinine 0.58 mg/dL (0.55-1.02) 04/05/18 07:48 Est GFR (MDRD) Af Amer 137 mL/min (>60) 04/05/18 07:48 Est GFR (MDRD) Non-Af 114 mL/min (>60) 04/05/18 07:48 BUN/Creatinine Ratio 17.2 RATIO (10-20) 04/05/18 07:48 Glucose 106 mg/dL (74-106) 04/05/18 07:48 Assessment/Plan: 1) Pain APAP, meloxicam, oxycodone for moderate-severe pain. Continue to monitor daily pain scores, prn medication use. * 2) DM2 Glimepiride at HS, ASA, lisinopril. Continue to monitor BGT, s/s hyper/hypoglycemia, BP/HR, renal function, electrolytes. * Please clarify time glimepiride is given. Should typically be given with a meal to avoid hypoglycemia and maximize efficacy. * 3) Vertigo Lorazepam, meclizine. Continue to monitor prn medication use. * Both medications ordered with same prn reason. Please clarify and update. Thank you. 4) Nutrition Ca/D, multivitamin. Continue to monitor clinically. 5) GI Famotidine, lactobacillus. Continue to monitor s/s GI distress. Psychotropic Medications: None Unnecessary Medications: None Bowel Regimen: 6) Senna/s, PEG, prn bisacodyl. Continue to monitor prn medication use, for constipation/diarrhea. Date of Note:: 04/07/18 - Provider Comments Provider responsibility: Provider responsible to enter orders to implement recommendations <Cody Key Chi - Last Filed: 04/07/18 16:28> Progress Note - Pharmacy Subjective: [] Objective: Allergies Penicillins Allergy (Verified 04/02/18 08:02) Hives metformin Adverse Reaction (Verified 04/02/18 08:02) Diarrhea Current Medications Generic Name Dose Route Start Last Admin Trade Name Freq PRN Reason Stop Dose Admin Acetaminophen 1,000 mg 04/04/18 22:00 04/07/18 13:28 Tylenol PO 1,000 mg Q8 LÁZARO Administration Aspirin 81 mg 04/04/18 18:00 04/07/18 08:44 Ecotrin PO 05/04/18 18:01 81 mg BIDCM LÁZARO Administration Bisacodyl 10 mg 04/04/18 17:29 Dulcolax PO DAILY PRN Constipation Calamine/Phenol 1 applic 04/06/18 06:00 04/07/18 06:05 Calmoseptine Ointment TOPICAL 1 applicatio DAILY LÁZARO Administration Protocol Calcium/Vitamin D 1 tablet 04/05/18 08:00 04/07/18 08:44 Os-Miguel 500mg + D PO 1 tablet BIDCM LÁZARO Administration Famotidine 20 mg 04/04/18 18:00 04/07/18 06:03 Pepcid PO 20 mg BID LÁZARO Administration Glimepiride 1 mg 04/04/18 22:00 04/06/18 21:41 Amaryl PO 1 mg QHS [facility] Administration Lactobacillus Acidophilus 1 tablet 04/05/18 06:00 04/07/18 06:03 Acidophilus PO 1 tablet DAILY LÁZARO Administration Lisinopril 2.5 mg 04/04/18 22:00 04/06/18 21:41 Zestril PO 2.5 mg QHS LÁZARO Administration Lorazepam 0.5 mg 04/04/18 17:13 Ativan PO DAILY PRN PRN Vertigo Meclizine HCl 25 mg 04/04/18 17:13 Antivert PO BID PRN PRN Vertigo Meloxicam 7.5 mg 04/04/18 18:00 04/07/18 06:02 Mobic PO 05/02/18 18:01 7.5 mg BID LÁZARO Administration Multivitamins 1 tablet 04/05/18 12:00 04/07/18 13:28 Multivitamin PO 1 tablet DAILY@1200 [facility] Administration Oxycodone HCl 5 - 10 mg 04/04/18 17:13 Oxyir PO Q4H PRN PRN MOD-SEVERE PAIN (4-10/10) Polyethylene Glycol 17 gm 04/05/18 06:00 04/07/18 06:05 Miralax PO Not Given DAILY [facility] Senna/Docusate Sodium 2 tablet 04/04/18 18:00 04/07/18 06:05 Senokot-S, Letty-Colace PO Not Given BID [facility] Tuberculin PPD 5 tu 04/12/18 10:00 Tubersol, Aplisol, Ppd ID 04/12/18 10:01 X1 ONE Problem List Osteoarthritis of right knee (Chronic) Hypertension (Chronic) Benign paroxysmal positional vertigo (Chronic) Anxiety (Chronic) GERD (gastroesophageal reflux disease) (Chronic) Vital Signs Temp Pulse Resp BP Pulse Ox 96.4 F L 91 14 158/73 H 97 04/07/18 15:52 04/07/18 15:52 04/07/18 15:52 04/07/18 15:52 04/07/18 15:52 Oxygen Delivery Method Room Air Weight: 99.5 kg Body Mass Index (BMI) 35.9 Finger Stick Blood Glucose 177 Sodium 142 mmol/L (136-145) 04/05/18 07:48 Potassium 3.8 mmol/L (3.5-5.1) 04/05/18 07:48 Chloride 107 mmol/L (98-107) 04/05/18 07:48 Carbon Dioxide 28.0 mmol/L (21.0-32.0) 04/05/18 07:48 Anion Gap 7 (5-15) 04/05/18 07:48 BUN 10 mg/dL (7-18) 04/05/18 07:48 Creatinine 0.58 mg/dL (0.55-1.02) 04/05/18 07:48 Est GFR (MDRD) Af Amer 137 mL/min (>60) 04/05/18 07:48 Est GFR (MDRD) Non-Af 114 mL/min (>60) 04/05/18 07:48 BUN/Creatinine Ratio 17.2 RATIO (10-20) 04/05/18 07:48 Glucose 106 mg/dL (74-106) 04/05/18 07:48 Assessment/Plan: Psychotropic Medications: Unnecessary Medications: Bowel Regimen: - Provider Comments Provider responsibility: Provider responsible to enter orders to implement recommendations Provider Comments to Recommendations by Pharmacy: Agree
[2018-04-07 15:52] VITALS: BP 158/73; PULSE 91; RESP 14; TEMP 35.8; O2SAT 97
[2018-04-07] MEDS: Lisinopril 2.5 MG Tablet PO (21:01)
[2018-04-08] MEDS: Famotidine 20 MG Tablet PO ×2 (06:08→16:38)
[2018-04-08] MEDS: Acetaminophen 500 MG Tablet 1000 MG PO ×3 (06:08→20:35)
[2018-04-08] MEDS: Meloxicam 7.5 MG Tablet PO ×2 (06:08→16:38)
[2018-04-08] MEDS: Menthol/Lanolin/Calamine/Znox 113 GM Tube 1 APPLIC TOPICAL (06:09)
[2018-04-08 06:56] LABS: Bedside Glucose 123 mg/dL (70-110)
[2018-04-08] MEDS: Glimepiride 1 MG Tablet PO (08:27)
[2018-04-08] MEDS: Calcium Carb/Vitamin D 1 TABLET Tablet PO ×2 (08:27→16:37)
[2018-04-08] MEDS: Aspirin E.C. 81 MG Tablet PO ×2 (08:27→16:37)
[2018-04-08 08:34] VITALS: PULSE 95; O2SAT 98
--- NOTE | 2018-04-08 11:27 | NURSING ---
pt c/o nausea. new order for zofran PRN. Pt c/o having more stools but not diarrhea, new order to change miralax and senokot to PRN.
[2018-04-08] MEDS: Multivitamins,Therapeutic Tablet 1 TABLET PO (12:12)
[2018-04-08] MEDS: Ondansetron ODT 4 MG Tablet PO (12:13)
--- NOTE | 2018-04-08 15:24 | CHAPLAIN ---
Type of Pastoral Visit ___ Initial Visit _x__ Follow-up Visit ___ On-call Visit ___ General Patient Visit ___ Spiritual Assessment ___ Family Conference ___ Bereavement ___ Rapid Response ___ Code Blue ___ Other (describe below) Pastoral Care Referral From _x__ Patient ___ Family ___ Nurse ___ Physician ___ Graphic Designer ___ Assurance Specialist ___ Other (describe below) Sacrament/Intervention _x__ Active listening ___ Anointing ___ Yazidi ___ Bereavement ___ Communion ___ Rosalee exploration ___ ___ Life review _x__ Prayer ___ Reconciliation ___ Sacrament of Sick _x__ Supportive presence ___ Wedding ___ Other (describe below) Pastoral Comments
[2018-04-08 16:00] VITALS: BP 144/73; PULSE 75; RESP 20; TEMP 36.4; O2SAT 96
[2018-04-08] MEDS: oxyCODONE 5 MG Tablet PO (16:37)
[2018-04-08] MEDS: Lisinopril 2.5 MG Tablet PO (20:35)
[2018-04-09] MEDS: Meloxicam 7.5 MG Tablet PO ×2 (06:16→16:56)
[2018-04-09] MEDS: Acetaminophen 500 MG Tablet 1000 MG PO ×3 (06:16→21:04)
[2018-04-09] MEDS: Famotidine 20 MG Tablet PO ×2 (06:17→16:56)
[2018-04-09] MEDS: Menthol/Lanolin/Calamine/Znox 113 GM Tube 1 APPLIC TOPICAL (06:18)
[2018-04-09 06:35] LABS: Bedside Glucose 123 mg/dL (70-110)
[2018-04-09] MEDS: Glimepiride 1 MG Tablet PO (08:40)
[2018-04-09] MEDS: Aspirin E.C. 81 MG Tablet PO ×2 (08:40→16:56)
[2018-04-09] MEDS: Calcium Carb/Vitamin D 1 TABLET Tablet PO ×2 (08:40→16:56)
[2018-04-09] MEDS: oxyCODONE 5 MG Tablet PO ×2 (09:30→10:49)
[2018-04-09] MEDS: Multivitamins,Therapeutic Tablet 1 TABLET PO (10:51)
--- NOTE | 2018-04-09 11:09 | CASEMGMT ---
Plan of care meeting held. Resident present, no support person present at this time. Resident plans to discharge to home alone at time of discharge. Resident with an insurance update due on this day, resident aware that continue stay approval is not guaranteed. Resident to continue with further care and treatment on the Transitional Care Unit. Support given. Will continue to follow. Nina MOYA, FRONT OFFICE HELP
[2018-04-09 16:00] VITALS: BP 136/72; PULSE 84; RESP 18; TEMP 36.6; O2SAT 98
--- NOTE | 2018-04-09 17:12 | CASEMGMT ---
Insurance Clinical information faxed. Pending continued stay approval at this time. Auth#[id number] Nina MOYA, DYNAMIC ETCHING PROCESSOR
[2018-04-09] MEDS: Lisinopril 2.5 MG Tablet PO (21:04)
[2018-04-10] MEDS: Meloxicam 7.5 MG Tablet PO ×2 (06:17→16:55)
[2018-04-10] MEDS: Famotidine 20 MG Tablet PO ×2 (06:17→16:55)
[2018-04-10] MEDS: Acetaminophen 500 MG Tablet 1000 MG PO ×3 (06:17→21:50)
[2018-04-10] MEDS: Menthol/Lanolin/Calamine/Znox 113 GM Tube 1 APPLIC TOPICAL (06:19)
[2018-04-10 06:36] LABS: Bedside Glucose 129 mg/dL (70-110)
[2018-04-10] MEDS: Calcium Carb/Vitamin D 1 TABLET Tablet PO ×2 (09:32→16:55)
[2018-04-10] MEDS: Aspirin E.C. 81 MG Tablet PO ×2 (09:33→16:55)
[2018-04-10] MEDS: Glimepiride 1 MG Tablet PO (09:33)
--- NOTE | 2018-04-10 11:40 | CASEMGMT ---
Insurance Continued stay approved with next update due on 04/11/18. Auth#[id number] Nina MOYA, ORACLE APEX DEVELOPER
[2018-04-10] MEDS: Multivitamins,Therapeutic Tablet 1 TABLET PO (12:45)
--- NOTE | 2018-04-10 13:57 | CASEMGMT ---
Addendum entered by Nina Davis 04/10/18 14:29: Reviewed and approved social media specialist student MDS documentation. Nina WOODARDW, FELT DYEING MACHINE TENDER Original Note: Brief interview for mood (BIMS) and mental status (PHQ-9) completed on this day. BIMS score 15/15. PHQ-9 score 2/. Zenaida Rojas social work student
[2018-04-10 16:00] VITALS: BP 131/65; PULSE 78; RESP 18; TEMP 36.4; O2SAT 98
[2018-04-10] MEDS: Lisinopril 2.5 MG Tablet PO (21:49)
[2018-04-11] MEDS: Menthol/Lanolin/Calamine/Znox 113 GM Tube 1 APPLIC TOPICAL (06:06)
[2018-04-11] MEDS: Famotidine 20 MG Tablet PO ×2 (06:06→16:37)
[2018-04-11] MEDS: Meloxicam 7.5 MG Tablet PO ×2 (06:06→16:37)
[2018-04-11] MEDS: Acetaminophen 500 MG Tablet 1000 MG PO ×3 (06:07→21:00)
[2018-04-11 07:00] LABS: Bedside Glucose 141 mg/dL (70-110)
[2018-04-11] MEDS: Glimepiride 1 MG Tablet PO (08:49)
[2018-04-11] MEDS: Calcium Carb/Vitamin D 1 TABLET Tablet PO ×2 (08:50→16:37)
[2018-04-11] MEDS: Aspirin E.C. 81 MG Tablet PO ×2 (08:50→16:37)
--- NOTE | 2018-04-11 09:13 | CASEMGMT ---
Social Work Spoke with resident in room to collaborate on discharge plan and possible discontinued coverage by insurance. Resident reporting that current barriers to resident discharge include: No running water in home and has carried buckets of water for years resident is reporting that the home has no plumbing and that the resident has lived like this for years in [facility] but with the knee replacement this does cause some troubles. [place] support for food within the home. This social director did explore options of Meals on Wheels, resident is reporting to be unable to afford this at this time. Resident reporting to have limited support and to currently not be able to drive due to recovering from knee replacement. Resident aware that resident may need to discharge on 04/12/18 due to insurance. Resident aware that home health therapy can be establish and set up for resident to continue with therapy services. Resident reporting to have some friends for support that were assisting with the water supply prior to resident surgery but that resident is not sure how long friends will be able to assist. This social director voicing understanding and will continue to collaborate with resident on the discharge plan. Resident plans to discharge back to home and reporting to have no other friends/family to be able to live with at this time. Support given. Will continue to follow. Nina MOYA, CARNIVAL WORKER
--- NOTE | 2018-04-11 09:21 | CASEMGMT ---
Insurance Clinical information faxed. Pending continued stay approval at this time. Auth#[id number] Nina MOYA, COMMUNICATION EQUIPMENT MECHANIC
[2018-04-11] MEDS: oxyCODONE 5 MG Tablet PO (11:40)
[2018-04-11] MEDS: Multivitamins,Therapeutic Tablet 1 TABLET PO (11:40)
--- NOTE | 2018-04-11 13:01 | CASEMGMT ---
Insurance Continued stay denied with last cover day being 04/13/18 and resident to discharge or financial responsibility to begin on 04/14/18. Auth#[id number] Nina MOYA, PAYROLL CONSULTANT
--- NOTE | 2018-04-11 13:14 | CASEMGMT ---
Social Work Spoke with resident in room. This family welfare social work professor communicating that continued stay has been denied by insurance with resident to discharge or financial responsibility to begin on 04/14/18. Resident choosing to discharge on 04/14/18 to home alone. This family welfare social work professor communicating that physical therapy is recommending for resident to have continued services through Home Health Care. Resident is agreeable to recommendation and requesting for home health services to be set up through [facility] Resident also reporting to need a walker at time of discharge. Resident does not have a preference of [place], [employer] to be utilized. Resident reporting to be able to have friends/pentecostalism family to provide transportation home for resident at time of discharge. Resident also reporting to be able to have family that can assist with providing food and water for resident while resident continues to recover. Support given. [facility] This family welfare social work professor leaving voicemail with referral, pending response at this time. Telephone call to Vianey Watson. This family welfare social work professor making referral for walker. Order faxed. Proposed discharge date: 04/14/18 PLAN: Discharge to home alone with home health services. Nina MOYA, SERVICE MECHANIC
--- NOTE | 2018-04-11 13:29 | DCINST_ITS ---
- Discharge Diagnoses Current Active Problems: Current Active and Chronic Problems Osteoarthritis of right knee (Chronic) Hypertension (Chronic) Benign paroxysmal positional vertigo (Chronic) Anxiety (Chronic) GERD (gastroesophageal reflux disease) (Chronic) You will use the following diet at home:: No restrictions, Regular Your food should be the consistency of: Regular Your liquids should be the consistency of: Regular/Thin Discharge Activity: Return to Normal Activity, May Shower, Use Walker Weight Bearing Status: Weight bearing as tolerated Call your doctor if you observe: Fever of 101 or Higher, Inability to urinate, Inability to have a bowel movement, Shortness of breath, Chest pain, Uncontrolled pain Allergies/Adverse Reactions: Allergies Penicillins Allergy (Verified 04/02/18 08:02) Hives metformin Adverse Reaction (Verified 04/02/18 08:02) Diarrhea Medications to take at Discharge Glimepiride 1 mg PO QHS 05/09/15 Lisinopril 2.5 mg PO QHS 05/09/15 Multivitamin [Multiple Vitamins] 1 tab PO DAILY 02/04/18 L.acidoph,Paracasei, B.lactis [Probiotic] 1 each PO DAILY 03/25/18 Lorazepam [Ativan] 0.5 mg PO DAILY PRN PRN 03/25/18 Acetaminophen [Tylenol] 1,000 mg PO Q8 04/04/18 Calcium Carb/Vitamin D [Os-Miguel 500MG + D] 1 tablet PO BIDCM 04/04/18 Meloxicam [Mobic] 7.5 mg PO BID 04/04/18 Aspirin E.C. [Ecotrin] 81 mg PO BID #38 tablet 04/11/18 Famotidine [Pepcid] 20 mg PO BID #60 tablet 04/11/18 Menthol/Lanolin/Calamine/Znox [Calmoseptine Ointment] 1 applic TOPICAL DAILY tube 04/11/18 Oxycodone [Oxyir] 5 - 10 mg PO Q4H PRN PRN 5 Days #30 tab 04/11/18 Polyethylene Glycol 3350 [Miralax] 17 gm PO DAILY PRN #30 packet 04/11/18 Senna/Docusate Sodium [Senokot-S] 2 tablet PO BID #120 tablet 04/11/18 The following prescriptions were given: Oxycodone [Oxyir] 5 - 10 mg PO Q4H PRN PRN 5 Days #30 tab PRN Reason: Mod-Severe Pain (4-04/02) Polyethylene Glycol 3350 [Miralax] 17 gm PO DAILY PRN #30 packet PRN Reason: Constipation Aspirin E.C. [Ecotrin] 81 mg PO BID #38 tablet Famotidine [Pepcid] 20 mg PO BID #60 tablet Senna/Docusate Sodium [Senokot-S] 2 tablet PO BID #120 tablet Primary Care Physician: Abhijeet Rowe MD [Primary Care Provider] - Please follow up with your Primary Care Physician in: 1 week. Test Results: Test results from this visit will be discussed in further detail at your follow- up appointment, if applicable. Please Follow Up With: Willie Robertson PA-C When: [phone] Proposed Discharge Date: 04/14/18
--- NOTE | 2018-04-11 13:29 | PCM.DC.SUM ---
Discharge Date and Diagnosis Date of Admission: 04/04/18 Date of Discharge: 04/14/18 - Secondary Discharge Diagnosis Chronic Problems Essential (primary) hypertension (Chronic) DM2 (diabetes mellitus, type 2) (Chronic) Osteoarthritis of right knee (Chronic) Hypertension (Chronic) Benign paroxysmal positional vertigo (Chronic) Anxiety (Chronic) GERD (gastroesophageal reflux disease) (Chronic) history of benign paroxysmal positional vertigo (Chronic) Hospital Course and Treatment Imaging Results: 04/09/18 13:33 Diet: Cardiac: Calorie-Controlled Is pt able to select menu?: Yes How many daily calories?: 1600 calorie Labs (Last 48 Hours) 04/10/18 04/11/18 06:21 06:26 POC Glucose 129 H 141 H Operations: None Procedures: None Summary of Care Provided: The patient is a 57 year old Female with below past medical history hospitalized for left total knee replacement 04/02/[address] Rincon, admitted to TCU with debility, here for rehabilitation, strengthening, prior to discharge home alone. Discharge home alone, with Home Health Services. - Physical Exam Vital Signs Temp Pulse Resp BP Pulse Ox 97.5 F L 78 18 131/65 H 98 04/10/18 16:00 04/10/18 16:00 04/10/18 16:00 04/10/18 16:00 04/10/18 16:00 Oxygen Delivery Method Room Air Weight: 100 kg Body Mass Index (BMI) 35.9 Finger Stick Blood Glucose 177 Intake and Output for Last 24 Hours 04/09/18 04/10/18 04/11/18 23:59 23:59 23:59 Intake Total 660 / 660 580 / 580 240 / 240 Balance 660 / 660 580 / 580 240 / 240 POC Glucose 04/11/18 06:26 POC Glucose 141 H Discharge Diet: No Restrictions Discharge Activity: Return to Normal Activity, May Shower, Use Walker Weight Bearing Status: Weight bearing as tolerated Call your doctor if you observe: Fever of 101 or Higher, Inability to urinate, Inability to have a bowel movement, Shortness of breath, Chest pain, Uncontrolled pain Home Medications: Medications to take at Discharge Glimepiride 1 mg PO QHS 05/09/15 Lisinopril 2.5 mg PO QHS 05/09/15 Multivitamin [Multiple Vitamins] 1 tab PO DAILY 02/04/18 L.acidoph,Paracasei, B.lactis [Probiotic] 1 each PO DAILY 03/25/18 Lorazepam [Ativan] 0.5 mg PO DAILY PRN PRN 03/25/18 Acetaminophen [Tylenol] 1,000 mg PO Q8 04/04/18 Calcium Carb/Vitamin D [Os-Miguel 500MG + D] 1 tablet PO BIDCM 04/04/18 Meloxicam [Mobic] 7.5 mg PO BID 04/04/18 Aspirin E.C. [Ecotrin] 81 mg PO BID #38 tablet 04/11/18 Famotidine [Pepcid] 20 mg PO BID #60 tablet 04/11/18 Menthol/Lanolin/Calamine/Znox [Calmoseptine Ointment] 1 applic TOPICAL DAILY tube 04/11/18 Oxycodone [Oxyir] 5 - 10 mg PO Q4H PRN PRN 5 Days #30 tab 04/11/18 Polyethylene Glycol 3350 [Miralax] 17 gm PO DAILY PRN #30 packet 04/11/18 Senna/Docusate Sodium [Senokot-S] 2 tablet PO BID #120 tablet 04/11/18 Following Prescrptions Were Given to Patient: Oxycodone [Oxyir] 5 - 10 mg PO Q4H PRN PRN 5 Days #30 tab PRN Reason: Mod-Severe Pain (4-04/02) Polyethylene Glycol 3350 [Miralax] 17 gm PO DAILY PRN #30 packet PRN Reason: Constipation Aspirin E.C. [Ecotrin] 81 mg PO BID #38 tablet Famotidine [Pepcid] 20 mg PO BID #60 tablet Senna/Docusate Sodium [Senokot-S] 2 tablet PO BID #120 tablet Primary Care Physician: Abhijeet Rowe MD [Primary Care Provider] - Please follow up with your Primary Care Physician in: 1 week. Please Follow Up With: Willie Robertson PA-C When: [phone] Disposition: Home with Home Health Minutes spent on discharge:: 35 Patient Condition:: Stable Medical Necessity - Tobacco Use Smoking Status: Never smoker Tobacco Use: Non-smoker Meaningful Use Info Meaningful Use Diagnoses (Choose all that apply): None applicable
--- NOTE | 2018-04-11 13:31 | PCM.PN.HH ---
Home Health Note - Plan Overview of reason of hospitalization: The patient is a 57 year old Female with below past medical history hospitalized for left total knee replacement 04/02/[address] Rincon, admitted to TCU with debility, here for rehabilitation, strengthening, prior to discharge home alone. Discharge home alone, with Home Health Services. Problems: Patient was seen for Osteoarthritis of right knee (Chronic) Hypertension (Chronic) Benign paroxysmal positional vertigo (Chronic) Anxiety (Chronic) GERD (gastroesophageal reflux disease) (Chronic) Complete List of Medical Problems Essential (primary) hypertension (Chronic) DM2 (diabetes mellitus, type 2) (Chronic) Osteoarthritis of right knee (Chronic) Hypertension (Chronic) Benign paroxysmal positional vertigo (Chronic) Anxiety (Chronic) GERD (gastroesophageal reflux disease) (Chronic) history of benign paroxysmal positional vertigo (Chronic) - Requirements and Reasons Disciplines Needed/Ordered: Physical Therapy Reason for Disciplines: Disease Specific Monitoring/education, Gait Training, Fall Prevention, Home Safety/Equipment Instruction, Balance and/or Posture Training, Transfer Training Related To: Change in Medical Treatment Plan, Limited/Poor Endurance, Physical Impairments, Unsteady Gait/Balance, Fall Risk Patient is unable to leave the home: Without Aid of Supportive Devices (crutches, cane, wheelchair, walker), Without the assistance of another person - Additional Disciplines Additional Disciplines Needed/Ordered: Occupational Therapy
--- NOTE | 2018-04-11 14:23 | CASEMGMT ---
Social Work Spoke with Lali at [facility] home health care, they are unable to accept resident due Kathryn insurance. Spoke with resident in room. Resident does not have any other preferences for home health company. Resident only wanting a company that is in network with resident insurance. This social media editor voicing that [facility] is in network with resident insurance. Resident is agreeable to this referral. Support given. Telephone call to [facility], referral made for physical therapy. Orders and clinical information faxed. Proposed discharge date: 04/14/18 PLAN: Discharge to home alone with home health care at time of discharge. Nina MOYA, CALL CENTER AGENT
[2018-04-11 16:00] VITALS: BP 134/70; PULSE 84; RESP 18; TEMP 36.1; O2SAT 97
[2018-04-11] MEDS: Lisinopril 2.5 MG Tablet PO (21:10)
[2018-04-12] MEDS: Famotidine 20 MG Tablet PO ×2 (05:03→16:34)
[2018-04-12] MEDS: Meloxicam 7.5 MG Tablet PO ×2 (05:03→16:34)
[2018-04-12] MEDS: Acetaminophen 500 MG Tablet 1000 MG PO ×3 (05:03→21:05)
[2018-04-12] MEDS: Menthol/Lanolin/Calamine/Znox 113 GM Tube 1 APPLIC TOPICAL (05:05)
[2018-04-12 07:01] LABS: Bedside Glucose 138 mg/dL (70-110)
[2018-04-12 07:15] LABS: Absolute Lymphocyte Count 1.58 X10^3/ul (0.83-4.51); Basophil# 0.03 X10^3/uL; Basophil% 0.4 % (0-1); Eosinophil# 0.25 X10^3/uL; Eosinophils% 3.3 % (0-5); Hemoglobin 11.3 g/dl (12.0-15.0); Lymphocyte # 1.58 X10^3/ul (4.0); Lymphocyte % 21.2 % (19-41); Mean Corp Hgb Conc 32.3 g/gl (32-36); Mean Corpuscular Volume 89.7 fL (81-99); Mean Platelet Vol. 9.4 fl (6.2-12.0); Monocyte# 0.64 X10^3/uL; Monocyte% 8.6 % (0-10); Neutrophil # 4.96 X10^3/uL (2.7-7.7); Neutrophil % 66.4 % (47-70); Platelet Count 394 K/mm3 (150-450); RBC Distribution Width CV 12.8 % (11.6-14.6); RBC Distribution Width SD 41.6 fl (35.1-43.9); White Blood Count 7.5 K/mm3 (4.4-11.0)
[2018-04-12 07:17] LABS: POSITIVE COUNT NO; POSITIVE DIFFERENTIAL NO; POSITIVE MORPHOLOGY NO
[2018-04-12 08:01] LABS: Anion Gap 7 (5-15); BUN 19 mg/dL (7-18); BUN/Creat Ratio 25.4 RATIO (10-20); Calcium,Total 8.7 mg/dL (8.5-10.1); Chloride 104 mmol/L (98-107); Creatinine, Serum 0.75 mg/dL (0.55-1.02); EST Glomerular Filtration Rate 85 mL/min (>60); Est Glom Filt Rate - Afr Amer 103 mL/min (>60); Estimated Creatinine Clearance 75.37 ml/min; Glucose 127 mg/dL (74-106); Potassium 4.2 mmol/L (3.5-5.1); Sodium Level 140 mmol/L (136-145)
[2018-04-12] MEDS: Aspirin E.C. 81 MG Tablet PO ×2 (08:33→16:34)
[2018-04-12] MEDS: Glimepiride 1 MG Tablet PO (08:33)
[2018-04-12] MEDS: Calcium Carb/Vitamin D 1 TABLET Tablet PO ×2 (08:33→16:34)
[2018-04-12] MEDS: Multivitamins,Therapeutic Tablet 1 TABLET PO (10:46)
[2018-04-12] MEDS: oxyCODONE 5 MG Tablet PO (10:46)
[2018-04-12] MEDS: Tuberculin,Purif.prot.deriv. 50 TU/ML Vial 5 ML ID (10:46)
[2018-04-12 15:27] VITALS: BP 139/76; PULSE 86; RESP 14; TEMP 36.6; O2SAT 98
[2018-04-12] MEDS: Lisinopril 2.5 MG Tablet PO (21:05)
[2018-04-13] MEDS: Menthol/Lanolin/Calamine/Znox 113 GM Tube 1 APPLIC TOPICAL (05:36)
[2018-04-13] MEDS: Famotidine 20 MG Tablet PO ×2 (05:36→16:15)
[2018-04-13] MEDS: Meloxicam 7.5 MG Tablet PO ×2 (05:36→16:15)
[2018-04-13] MEDS: Acetaminophen 500 MG Tablet 1000 MG PO ×3 (05:36→20:56)
[2018-04-13 06:31] LABS: Bedside Glucose 126 mg/dL (70-110)
[2018-04-13] MEDS: Aspirin E.C. 81 MG Tablet PO ×2 (07:55→16:15)
[2018-04-13] MEDS: Calcium Carb/Vitamin D 1 TABLET Tablet PO ×2 (07:55→16:15)
[2018-04-13] MEDS: Glimepiride 1 MG Tablet PO (07:55)
[2018-04-13] MEDS: Ondansetron ODT 4 MG Tablet PO (09:52)
[2018-04-13] MEDS: oxyCODONE 5 MG Tablet PO (09:53)
[2018-04-13] MEDS: Multivitamins,Therapeutic Tablet 1 TABLET PO (11:18)
[2018-04-13 15:36] VITALS: BP 133/68; PULSE 71; RESP 18; TEMP 36.2; O2SAT 100
[2018-04-13] MEDS: Lisinopril 2.5 MG Tablet PO (20:56)
[2018-04-14] MEDS: Famotidine 20 MG Tablet PO (05:24)
[2018-04-14] MEDS: Menthol/Lanolin/Calamine/Znox 113 GM Tube 1 APPLIC TOPICAL (05:24)
[2018-04-14] MEDS: Meloxicam 7.5 MG Tablet PO (05:24)
[2018-04-14] MEDS: Acetaminophen 500 MG Tablet 1000 MG PO (05:25)
[2018-04-14 06:33] VITALS: PULSE 74; O2SAT 99
[2018-04-14 06:56] LABS: Bedside Glucose 121 mg/dL (70-110)
[2018-04-14] MEDS: Calcium Carb/Vitamin D 1 TABLET Tablet PO (08:05)
[2018-04-14] MEDS: Glimepiride 1 MG Tablet PO (08:05)
[2018-04-14] MEDS: Aspirin E.C. 81 MG Tablet PO (08:05)
[2018-04-14] MEDS: Multivitamins,Therapeutic Tablet 1 TABLET PO (12:08)
[2018-04-14 12:29] VITALS: BP 136/74; PULSE 96; RESP 18; TEMP 36.4; O2SAT 98
--- NOTE | 2018-04-15 06:47 | MDS.RN ---
Information for the mds was obtained from review of the clinical record, interview of resident, staff, and direct observation of resident's care.
--- NOTE | 2018-04-16 13:59 | CASEMGMT ---
Insurance Notified insurance of resident discharge on 04/14/18. Auth#[id number] Nina MOYA, DOCTOR'S ASSISTANT
== END 2018-04-14 13:15 | disposition home health service (06) | DRG 561 ==
PROVIDERS: Admitting Provider Family Medicine Geriatric Medicine; Family Provider Family Medicine; PCP Family Medicine; Referring Provider Family Medicine Geriatric Medicine; Visit Provider Family Medicine Geriatric Medicine
DX: Z47.1 Aftercare following joint replacement surgery (principal); Z96.651 Presence of right artificial knee joint; K21.9 Gastro-esophageal reflux disease without esophagitis; E11.9 Type 2 diabetes mellitus without complications; I10 Essential (primary) hypertension; F41.9 Anxiety disorder, unspecified; H81.10 Benign paroxysmal vertigo, unspecified ear
CPT/HCPCS: 36415; 80048; 82962; 85025; 97110; 97116; 97162; 97166; 97530; 97535; 97802

== ENCOUNTER 2021-08-25 15:11 | Emergency (ER) | payer OTHER, SELFPAY ==
[2021-08-25 15:12] VITALS: BP 180/88; PULSE 101; RESP 16; TEMP 36.8; O2SAT 97; BMI 43.2
--- NOTE | 2021-08-25 15:29 | CT_ITS ---
STUDY: CT ABDOMEN AND PELVIS WITHOUT CONTRAST REASON FOR EXAM: Female, 60 years old. LLQ pain RADIATION DOSAGE (If Supplied By Facility): CTDIvol = ( 22.43 ) mGy, DLP = ( 1126.09 ) mGycm TECHNIQUE: Transaxial images were obtained from the dome of the diaphragm to the symphysis pubis without oral contrast, and without intravenous contrast. Sagittal and coronal images were reconstructed. Individualized dose optimization techniques were used for this CT. COMPARISON: None. FINDINGS: The visualized lung bases are unremarkable. The visualized portions of the heart are within normal limits. Normal liver. Normal gallbladder and extrahepatic biliary system. Normal spleen. Normal pancreas. There is a small, circumscribed, smooth, low attenuation left adrenal mass, consistent with an adrenal adenoma. Normal right adrenal gland. Normal right kidney. Normal left kidney. Normal visualized stomach. Normal small intestine. There are multiple colonic diverticula consistent with diverticulosis. The appendix is visualized and appears normal. Normal abdominal aorta. Normal inferior vena cava. Normal retroperitoneum. Normal urinary bladder. 7.5 cm umbilical hernia containing fat. Normal osseous structures. CT/Abdomen/Pelvis without Cont IMPRESSION: 1. Sigmoid diverticulosis without diverticulitis. 2. 7.5 cm umbilical hernia containing fat. Electronically Signed: Venu Brown MD at 16:14 [facility] ,
--- NOTE | 2021-08-25 15:33 | ED.VIS.GI ---
HPI HPI - GI History of Present Illness Chief Complaint: Abd Pain Informant: patient Narrative Narrative: Waxing and waning left-sided abdominal pain for the past week. Denies any fevers. Nausea without vomiting. Normal bowel movements nonbloody. States history of gastritis in the past. Colonoscopy over 10 years ago. No history of diverticulitis. Denies urinary symptoms. History of hypertension, diabetes, gastritis. Reports pain increased today therefore wanted evaluation. Has not seen anybody in the last week. Prior similar symptoms: No PFSH PFSH Home Medications Glimepiride 1 mg PO QHS 05/09/15 [History Last Taken Unknown] lisinopril 2.5 mg PO QHS 05/09/15 [History Last Taken Unknown] multivitamin [Multiple Vitamins] 1 tab PO DAILY 02/04/18 [History Last Taken 03/27/18] L.acidoph, paracasei,B. lactis 1 ea PO DAILY 03/25/18 [History Last Taken Unknown] lorazepam 0.5 mg PO DAILY PRN PRN 03/25/18 [History Last Taken Unknown] acetaminophen 1,000 mg PO Q8 04/04/18 [History Last Taken Unknown] calcium carbonate-vitamin D3 [Oyster Shell Calcium-Vit D3] 1 tab PO BIDCM 04/04/18 [History Last Taken Unknown] meloxicam 7.5 mg PO BID 04/04/18 [History Last Taken Unknown] aspirin 81 mg PO BID #38 tab 04/11/18 [Rx Last Taken Unknown] famotidine 20 mg PO BID #60 tab 04/11/18 [Rx Last Taken Unknown] menthol-zinc oxide [Calmoseptine] 1 applic TOPICAL DAILY tube 04/11/18 [Rx Last Taken Unknown] polyethylene glycol 3350 17 g PO DAILY PRN #30 packet 04/11/18 [Rx Last Taken Unknown] sennosides-docusate sodium [Stool Softener-Stimulant Laxat] 2 tab PO BID #120 tab 04/11/18 [Rx Last Taken Unknown] ondansetron 4 mg PO Q6H PRN PRN #30 tablet 04/14/18 [Rx Last Taken Unknown] ondansetron 4 mg PO Q6H PRN #10 tab 08/25/21 [Rx Last Taken Unknown] Allergy/AdvReac Type Severity Reaction Status Date / Time Penicillins Allergy Hives Verified 04/02/18 08:02 metformin AdvReac Diarrhea Verified 04/02/18 08:02 Social History Smoking Status: Never smoker ROS ROS ED Constitutional Constitutional ED: Denies chills, fever(s) or sweats Eyes Eyes: Denies change in vision ENT ENT ED: Denies dysphagia or sore throat Cardiovascular Cardiovascular: Denies chest pain, leg edema, palpitations or racing heartbeat Respiratory/Chest Respiratory/Chest: Denies cough, dyspnea or dyspnea on exertion Gastrointestinal Gastrointestinal: Reports abdominal pain and nausea; Denies diarrhea or vomiting Genitourinary Genitourinary ED: Denies dysuria, hematuria or urinary frequency Musculoskeletal Musculoskeletal: Denies back pain, extremity pain or neck pain Integumentary Denies rash or wounds Neurologic Neurologic: Denies headache(s), paresthesias or weakness EXAM Physical Exam Const Vital Signs: 08/25/21 15:12 08/25/21 17:17 Temperature 98.2 F Temperature Source Temporal Pulse Rate 101 H 74 Respiratory Rate 16 17 Blood Pressure 180/88 H Blood Pressure Mean 118 Pulse Ox 97 98 Oxygen Delivery Method Room Air Room Air Positive well nourished and well developed General Appearance ED: well developed and NAD HEENT HEENT Narrative: Mild dry mucosal membranes. normocephalic and atraumatic Eyes PERRL, EOMs intact bilaterally and conjunctivae normal General Eye ED: Yes normal appearance of both eyes Neck no lymphadenopathy and supple General: Negative for tenderness Chest Wall Chest: Negative for tenderness Resp normal respiratory effort and normal air movement Effort and Inspection: symmetric chest movement; Negative for respiratory distress Cardio regular rate, regular rhythm and no murmurs Peripheral Pulses: pulses 2+ throughout GI normal to inspection, nondistended, normoactive bowel sounds GI Narrative: Tender palpation left side more than left lower quadrant no guarding or rebound. No rash in the region. Palpation: Negative for guarding or rebound tenderness present Back/Spine no CVA tenderness and no thoracic nor lumbar tenderness Extremity normal to inspection General Extremety ED: Negative for edema or tenderness General Extremity: Negative for edema Neuro oriented x3 and no sensory deficits noted Sensorium / Orientation: awake and alert Skin no rashes or lesions noted and no wounds MDM MDM MDM Narrative Medical decision making narrative: Patient is tender left lower quadrant, waxing waning symptoms work-up to rule out diverticulitis or other intra-abdominal process. Abdominal labs are all normal urine essentially negative for leukocytes however had squamous cells. She denies urine symptoms. No blood. Glucose was two nineteen. Anion gap normal at five. CT scan per radiology notes a 7.5 cm fat-containing umbilical hernia. No other acute process noted. There is no obstruction. Patient reports she has been noted bigger hernia in her umbilical region. On exam no significant tenderness in this region. She still had mild pain left side her abdomen, there is no current rash I discussed monitoring for rash for potential shingles pain. She is given follow-up with on-call surgeon Dr. Whitehead for outpatient evaluation of her hernia. Prescription Zofran sent to her pharmacy. She declined any pain medicines in the ED. She will use Tylenol as needed. Return precautions discussed. Lab Data Attestation: I reviewed the patient's lab results. Labs: Laboratory Results - last 24 hr 08/25/21 08/25/21 08/25/21 15:22 15:28 15:28 WBC 9.4 RBC 4.83 Hgb 14.2 Hct 43.9 MCV 90.9 MCH 29.4 MCHC 32.3 RDW Std Deviation 40.6 RDW Coeff of Meek 12.4 Plt Count 401 MPV 9.9 Immature Gran % (Auto) 0.300 Neut % (Auto) 75.7 H Lymph % (Auto) 16.7 L Mathe[place] % (Auto) 5.2 Eos % (Auto) 1.6 Baso % (Auto) 0.5 Absolute Neuts (auto) 7.1 Absolute Lymphs (auto) 1.56 Nucleated RBC % 0 Sodium 139 Potassium 4.1 Chloride 107 Carbon Dioxide 27.0 Anion Gap 5 BUN 14 Creatinine 1.01 Estim Creat Clear Calc 53.97 Est GFR (MDRD) Af Amer 72 Est GFR (MDRD) Non-Af 60 BUN/Creatinine Ratio 13.9 Glucose 219 H Calcium 9.3 Total Bilirubin 0.50 Direct Bilirubin 0.09 AST 20 ALT 19 Alkaline Phosphatase 57 Total Protein 7.6 Albumin 3.8 Globulin 3.8 Lipase 111 Urine Color Yellow Urine Clarity Clear Urine pH 6.5 Ur Specific [place] 1.015 Urine Protein 30 H Urine Glucose (UA) 50 H Urine Ketones 50 H Urine Occult Blood Negative Urine Nitrite Negative Urine Bilirubin Negative Urine Urobilinogen Normal Ur Leukocyte Esterase 25 H Urine RBC 0 SEEN Urine WBC 0-5 SEEN Ur Squamous Epith Cells 5-10 SEEN Urine Bacteria 0 SEEN Urine Mucus 0 SEEN Radiography Diagnostic Testing: Clinical Impression(s) from Imaging Studies Abdomen/Pelvis CT 08/25/21 15:29 IMPRESSION: 1. Sigmoid diverticulosis without diverticulitis. 2. 7.5 cm umbilical hernia containing fat. Electronically Signed: Venu Brown MD at 16:14 EST Reading Location ID and State: [facility] / [place] Tel , Service support , Discharge Plan Triage Chief Complaint: Abd Pain ED Provider: Amilcar Chacon Dx/Rx/DC Orders Clinical Impression: Abdominal pain, Umbilical hernia without obstruction or gangrene Instructions: Abdominal Pain, ED Hernia (Adult) Prescriptions: New ondansetron 4 mg tablet,disintegrating 4 mg PO Q6H PRN (Reason: nausea and vomiting) Qty: 10 RF: 0 No Action lisinopril 5 MG tablet 2.5 mg PO QHS RF: 0 Glimepiride 1 MG tablet 1 mg PO QHS RF: 0 multivitamin [Multiple Vitamins] 1 EACH tablet 1 tab PO DAILY RF: 0 lorazepam 0.5 MG tablet 0.5 mg PO DAILY PRN PRN (Reason: Vertigo) RF: 0 L.acidoph, paracasei,B. lactis 1 EACH capsule 1 ea PO DAILY RF: 0 acetaminophen 500 MG tablet 1,000 mg PO Q8 RF: 0 meloxicam 7.5 MG tablet 7.5 mg PO BID RF: 0 calcium carbonate-vitamin D3 [Oyster Shell Calcium-Vit D3] 1 TABLET tablet 1 tab PO BIDCM RF: 0 polyethylene glycol 3350 17 GM powder in packet 17 g PO DAILY PRN (Reason: Constipation) Qty: 30 RF: 0 menthol-zinc oxide [Calmoseptine] 1 APPLIC ointment 1 applic topical DAILY RF: 0 sennosides-docusate sodium [Stool Softener-Stimulant Laxat] 1 TABLET tablet 2 tab PO BID Qty: 120 RF: 0 aspirin 81 MG tablet 81 mg PO BID Qty: 38 RF: 0 famotidine 20 MG tablet 20 mg PO BID Qty: 60 RF: 0 ondansetron 4 MG tablet 4 mg PO Q6H PRN PRN (Reason: NAUSEA) Qty: 30 RF: 0 Primary Care Provider: Abhijeet Rowe Referrals: Kristal Whitehead MD [STAFF PHYSICIAN] - 1 Week Abhijeet Rowe MD [Primary Care Provider] - Activity Restrictions/Additional Instructions: 7.5 cm fat-containing umbilical hernia on CT. No obstruction. Monitor for rash on the left side of abdomen. Follow-up with on-call surgeon Dr. Whitehead. Disposition Disposition: Home, Self Care Discharge Date/Time: 08/25/21 17:18
[2021-08-25] MEDS: Ondansetron 4 MG/2 ML Vial IV (15:39)
[2021-08-25] MEDS: 0.9% Normal Saline 1,000 ML 1000 ML IV (15:39)
[2021-08-25 16:01] LABS: Bacteria 0 SEEN /hpf (None Seen); Mucous, Urine 0 SEEN /hpf (<or=2+); Red Blood Cells-Urine 0 SEEN /hpf (0-5)
[2021-08-25 16:03] LABS: Absolute Lymphocyte Count 1.56 X10^3/uL (0.83-4.51); Absolute Neutrophil Count 7.1 X10^3/uL (2.0-7.7); Basophil# 0.05 X10^3/uL; Basophil% 0.5 % (0-1); Eosinophil# 0.15 X10^3/uL; Eosinophils% 1.6 % (0-5); Hematocrit 43.9 % (37-47); Hemoglobin 14.2 g/dL (12.0-15.0); Lymphocyte # 1.56 X10^3/ul (0.83-4.51); Lymphocyte % 16.7 % (19-41); Mean Corp Hgb Conc 32.3 g/dL (32-36); Mean Corpuscular Hgb 29.4 pg (27.0-32.0); Mean Corpuscular Volume 90.9 fL (81-99); Mean Platelet Vol. 9.9 fl (6.2-12.0); Monocyte# 0.49 X10^3/uL; Monocyte% 5.2 % (0-10); NRBC Flagged by Analyzer 0 % (0-5); Neutrophil # 7.07 X10^3/uL (2.7-7.7); Neutrophil % 75.7 % (47-70); Platelet Count 401 K/mm3 (150-450); RBC Distribution Width CV 12.4 % (11.6-14.6); RBC Distribution Width SD 40.6 fl (35.1-43.9); Red Blood Count 4.83 M/mm3 (4.2-5.4); White Blood Count 9.4 K/mm3 (4.4-11.0)
[2021-08-25 16:14] LABS: AST(SGOT) 20 U/L (15-37); Alanine Aminotransfer ALT/SGPT 19 U/L (13-56); Albumin, Serum 3.8 g/dL (3.2-5.0); Alkaline Phosphatase 57 U/L (45-117); Anion Gap 5 (5-15); BUN 14 mg/dL (7-18); BUN/Creat Ratio 13.9 RATIO (10-20); Bilirubin, Direct 0.09 mg/dL (0.00-0.30); Calcium,Total 9.3 mg/dL (8.5-10.1); Chloride 107 mmol/L (98-107); Creatinine, Serum 1.01 mg/dL (0.55-1.02); EST Glomerular Filtration Rate 60 mL/min (>60); Est Glom Filt Rate - Afr Amer 72 mL/min (>60); Estimated Creatinine Clearance 53.97 ml/min; Globulin 3.8 g/dL (2.2-4.2); Glucose 219 mg/dL (74-106); Lipase 111 U/L (73-393); Potassium 4.1 mmol/L (3.5-5.1); Protein, Total 7.6 g/dL (6.4-8.2); Sodium Level 139 mmol/L (136-145)
[2021-08-25 16:31] LABS: Color, Urine Yellow (Yellow); Glucose, Dipstick 50 mg/dl (Normal); Ketone-Dipstick 50 mg/dl (Negative); Leukocyte Esterase-Dipstick 25 /ul (Negative); Nitrite-Dipstick Negative (Negative); Occult Blood-Urine Negative /ul (Negative); Protein-Dipstick 30 mg/dl (Negative); Specific Gravity, Urine 1.015 (1.002-1.030); Urine Bilirubin Dipstick Negative (Negative); Urine Clarity Clear (Clear); Urine Urobilinogen Normal (Normal); Urine pH 6.5 (5.0 - 8.0)
[2021-08-25 16:38] LABS: Squamous Epithelial Cells - UA 5-10 SEEN /hpf (5-10); White Blood Cells 0-5 SEEN /hpf (0-5)
[2021-08-25 17:17] VITALS: PULSE 74; RESP 17; O2SAT 98
== END 2021-08-25 17:18 | disposition home or self-care (01) ==
PROVIDERS: Emergency Provider Emergency Medicine; PCP Family Medicine; Visit Provider Emergency Medicine
DX: K42.9 Umbilical hernia without obstruction or gangrene (principal); R11.0 Nausea; R10.814 Left lower quadrant abdominal tenderness; Z79.84 Long term (current) use of oral hypoglycemic drugs; Z79.1 Long term (current) use of non-steroidal anti-inflammatories (NSAID); Z79.82 Long term (current) use of aspirin
CPT/HCPCS: 74176; 80048; 80076; 81001; 83690; 85025; 96361; 96374; 99283; J2405

== ENCOUNTER 2022-01-17 20:38 | Emergency (ER) | payer MEDICAID, SELFPAY ==
[2022-01-17 20:40] VITALS: BP 170/90; PULSE 106; RESP 16; TEMP 36.5; O2SAT 97; BMI 39.9
--- NOTE | 2022-01-17 21:33 | EKG12_ITS ---
Test Reason : Blood Pressure : / mmHG Vent. Rate : 082 BPM Atrial Rate : 082 BPM P-R Int : 134 ms QRS Dur : 080 ms QT Int : 370 ms P-R-T Axes : 033 -03 045 degrees QTc Int : 432 ms Normal sinus rhythm Nonspecific ST abnormality Abnormal ECG Confirmed by ACACIA FREDERICK, NAIDA ([id number]), newspaper or periodical editor HEATHER DUKE ([id number]) on 01/22/2022 11:11:21 AM Referred By: HANANE Confirmed By:DAVID ROGER MD
[2022-01-17 21:44] LABS: Amphetamine Urine VISTA NEGATIVE (<1000 ng/mL); Barbiturate Urine VISTA NEGATIVE (< 200 ng/mL); Benzodiazepine Urine VISTA NEGATIVE (< 200 ng/mL); Cocaine Urine VISTA NEGATIVE (< 300 ng/mL); Ecstacy Urine VISTA NEGATIVE (< 500 ng/mL); Methadone Urine VISTA NEGATIVE (< 300 ng/mL); PCP Urine VISTA NEGATIVE (< 25 ng/mL); THC Urine VISTA NEGATIVE (< 50 ng/mL); Vista UDS pH Range 7
[2022-01-17 22:00] VITALS: RESP 16
--- NOTE | 2022-01-17 22:02 | CM.ED ---
SW Note Referring Provider: MD Marcus Reason for Referral: Depression and Mental Health Issues Complaint: SW met with patient and her 2 friends (Berkley and David) in the ED room. SW asked to speak to patient privately and friends agreed to leave the room. Patient was crying throughout the assessment. Patient said I am so scared.. the pain and the dizziness... I am scared I will fall again.. I am scared of the pain. Patient said I am scared I will fall again and hurt more. SW asked patient why she came to the ED today and patient said I got up in the morning and I had pain in my hips and thighs. Patient said that she has fallen 2 times in the last 2 weeks. Patient said that her house was falling apartment and she recently moved to a apartment (per friends her parents and the house patient had lived in was run down). Patient said that her legs don't work. Patient said that she is afraid she will fall. SW asked patient about Suicidal Ideation. Patient said it would be nice if this was all over. SW asked patient if she wanted to and patient said I want to go to heaven.. I want it to be somewhere where they will take care of me. Patient said I don't feel safe.. I am falling and no one is around to help me. Patient confirmed she is depressed. Patient said again It would be nice to be in heaven and not have this pain and worry. Patient was asked about plans and patient said I had more in 2018 (when she had bone on bone surgery) but stated she is thinking about it recently. Patient said that she has been thinking about driving or jumping off a bridge someway to make sure it was done. SW asked how frequently patient is having these thoughts regarding suicide. SW asked patient if the thoughts are daily and she said I don't know. SW asked if she is having them a couple times a week and patient said yes. Patient said that the SI have increased since she fell on Saturday. Patient denied any suicide attempt. Patient is single. Identifies as female. Heterosexual Living Situation: Resides in a duplex by self. Her friends moved her to this duplex recently. Support: [facility] friends and Friends from work History: None Education: Patient graduated from high school. Some classes at the [employer] for typing and shorthand. No learning issues. Patient was previously working at the [employer] in [place] but is currently unemployed. Patient has filled for disability on 11/01/21. Mental Health: Patient reports no psychiatric treatment including no counselors or psychiatrist. No psych hospitalizations. No psychiatric medication and no psychiatric hospitalization. Triggers: Falling and fear of falling, pain and not know when my legs are working.. can't feel my feet most of the time Coping Skills: Prayer and distract myself with radio and tv Abuse Issues: Denied Substance Abuse: Denied Risk to Self and Others: Suicidal Ideation: SW asked patient about Suicidal Ideation. Patient said it would be nice if this was all over. SW asked patient if she wanted to and patient said I want to go to [facility].. I want it to be somewhere where they will take care of me. Patient said I don't feel safe.. I am falling and no one is around to help me. Patient confirmed she is depressed. Patient said again [facility] and not have this pain and worry. Patient was asked about plans and patient said I had more in 2018 (when she had bone on bone surgery) but stated she is thinking about it recently. Patient said that she has been thinking about driving or jumping off a bridge someway to make sure it was done. SW asked how frequently patient is having these thoughts regarding suicide. SW asked patient if the thoughts are daily and she said I don't know. SW asked if she is having them a couple times a week and patient said yes. Patient said that the SI have increased since she fell on Saturday. Patient denied any suicide attempt. Homicidal Ideation: Denied Violence: Denied Mental Status: X3 Memory: Good Appearance: Disheveled. Crying throughout the assessment Mood: Depressed with flat affect Communication Pattern: Responds to question. Thought Process: Patient does not exhibit any AH/VH. However patient continues to voice she is not safe and can't be alone. In the ED she said I need someone beside me all the time in case I fall or need help. General Intellectual Functioning: Average Judgement: Impaired Insight: Poor Patient, when asked about suicide, states It would be nice if it was over as well as other various statements about heaven. Patient voices a plan. Patient voices that she does not feel physically safe and she is anxious about falling. Patient also voices she is depressed. Thus, patient needs inpatient psych hospitalization for stabilization and med management. ALEJANDRO consulted with MD Marcus. Plan is for inpatient psych Amanda MADDOX
[2022-01-17 22:11] LABS: Mucous, Urine 0 SEEN /hpf (<or=2+); Red Blood Cells-Urine 0 SEEN /hpf (0-5); White Blood Cells 0 SEEN /hpf (0-5)
[2022-01-17 22:18] LABS: Absolute Neutrophil Count 7.9 X10^3/uL (2.0-7.7); Basophil# 0.06 X10^3/uL; Basophil% 0.5 % (0-1); Eosinophils% 2.6 % (0-5); Hematocrit 42.6 % (37-47); Hemoglobin 13.8 g/dL (12.0-15.0); Lymphocyte % 19.3 % (19-41); Mean Corp Hgb Conc 32.4 g/dL (32-36); Mean Corpuscular Hgb 29.4 pg (27.0-32.0); Mean Corpuscular Volume 90.6 fL (81-99); Mean Platelet Vol. 9.2 fl (6.2-12.0); Monocyte# 0.92 X10^3/uL; Monocyte% 8.1 % (0-10); NRBC Flagged by Analyzer 0 % (0-5); Neutrophil # 7.88 X10^3/uL (2.7-7.7); Neutrophil % 69.2 % (47-70); Platelet Count 369 K/mm3 (150-450); RBC Distribution Width CV 12.4 % (11.6-14.6); RBC Distribution Width SD 40.6 fl (35.1-43.9); White Blood Count 11.4 K/mm3 (4.4-11.0)
--- NOTE | 2022-01-17 22:19 | CM.ED ---
SW met with patient's friends, Elaina and Ty. They voice that patient is depressed. They stated patient has not voiced any SI to them. Patient's friends, Ty [phone] and Berkley ([phone]) would like to be updated regarding placement. Friends said that if one staff member calls one of them they will update the other staff members. SW also provided them with the the number for crisis. [facility] SW will have referral packet faxed to [facility]. Plan: Inpatient psych
[2022-01-17 22:21] LABS: Color, Urine Yellow (Yellow); Glucose, Dipstick Normal (Normal); Ketone-Dipstick Negative (Negative); Leukocyte Esterase-Dipstick Negative /ul (Negative); Nitrite-Dipstick Negative (Negative); Occult Blood-Urine Negative /ul (Negative); Protein-Dipstick Negative (Negative); Urine Bilirubin Dipstick Negative (Negative); Urine Clarity Clear (Clear); Urine Urobilinogen Normal (Normal)
--- NOTE | 2022-01-17 22:33 | EDS_ITS ---
HPI History of Present Illness Chief Complaint: Mental Health Informant: patient and friend Narrative Narrative: -year-old female presenting to the emergency department with depression. Patient states that in June she needed to take off time off work. This led to an FMLA leave and eventually she did not go back to her job. This left her without health insurance. She states that she needed to find a new place to live and this weekend moved to a duplex. She fell about 3 weeks ago and eventually recovered from that. This scared her greatly and on Saturday she sustained another fall. Since that time she has been afraid to do much because she is afraid she is going to fall. She is afraid to get up off the commode. She states that she is not sleeping well. She is constantly crying. She notes pain in her low back and in her hips and her thighs. She has chronic pain issues. She states that depression is new for her but when she had her knee surgery several years ago she states that the pain made her very depressed to where she contemplated suicide. When I expressed that I think there is been an underlying depression for years she states that that would be fair to say. When asked if she is suicidal the patient states I think I am too scared to do it but she has plans of jumping off a bridge because that way I can ensure that it is done. [facility] Medical History Arthritis Clavicle deformity, congenital Diabetes type 2, controlled GERD (gastroesophageal reflux disease) Hypertension Neuropathy Obesity Plantar wart Syncopal vertigo Tinea pedis UTI (urinary tract infection) Home Medications lisinopril 5 mg tablet 2.5 mg PO QHS BLOOD PRESSURE 05/09/15 [History Last Taken Unknown] acetaminophen 500 mg tablet 1,000 mg PO Q8 INFLAMMATION 04/04/18 [History Last Taken Unknown] calcium carbonate 500 mg-vitamin D3 5 mcg (200 unit) tablet (Oyster Shell Calcium-Vitamin D3) 1 tab PO BIDCM SUPPLEMENT 04/04/18 [History Last Taken Unknown] meloxicam 7.5 mg tablet 7.5 mg PO BID INFLAMMATION/PAIN 04/04/18 [History Last Taken Unknown] aspirin 81 mg tablet,delayed release 81 mg PO BID [employer] #38 tabs 04/11/18 [Rx Last Taken Unknown] famotidine 20 mg tablet 20 mg PO BID REFLUX #60 tabs 04/11/18 [Rx Last Taken Unknown] glimepiride 2 mg tablet 1 tab PO DAILY 01/17/22 [History Last Taken Unknown] meclizine 25 mg tablet 25 mg PO TID PRN Dizziness 01/17/22 [History Last Taken Unknown] Allergy/AdvReac Type Severity Reaction Status Date / Time Penicillins Allergy Hives Verified 01/17/22 20:46 metformin AdvReac Diarrhea Verified 01/17/22 20:46 Social History Smoking Status: Never smoker ROS ROS ED Constitutional Constitutional ED: Denies chills or weight loss Eyes Eyes: Denies change in vision or diplopia ENT ENT ED: Denies ear pain, rhinorrhea or sore throat Cardiovascular Cardiovascular: Denies chest pain, orthopnea, palpitations or racing heartbeat Respiratory/Chest Respiratory/Chest: Denies cough, dyspnea or orthopnea Gastrointestinal Gastrointestinal: Denies abdominal pain, diarrhea, nausea or vomiting Genitourinary Genitourinary ED: Denies dysuria, hematuria or urinary frequency Musculoskeletal Musculoskeletal: Reports arthralgias, back pain and myalgias Integumentary Denies abscess or rash Neurologic Neurologic: Denies headache(s) or weakness Psychiatric Psychiatric: Reports anxiety, depression and suicidal thoughts; Denies suicidal ideation Endocrine Endocrinology: Denies polydipsia, polyphagia or polyuria Allergic/Immunologic Allergic/Immunologic ED: Denies mouth swelling, tongue swelling or urticaria EXAM Physical Exam Const Vital Signs: 01/17/22 20:40 01/17/22 22:00 01/17/22 23:10 Temperature 97.7 F L Temperature Source Temporal Pulse Rate 106 H Respiratory Rate 16 16 15 Blood Pressure 170/90 H Blood Pressure Mean 116 Pulse Ox 97 Oxygen Delivery Method Room Air Positive well nourished, well developed and obese General Appearance ED: well developed Nutritional Appearance: obese HEENT Reports normocephalic, head/scalp atraumatic and moist mucous membranes Eyes PERRL and EOMs intact bilaterally Neck no lymphadenopathy, supple and no JVD Resp normal respiratory effort and clear to auscultation bilaterally Cardio regular rate, regular rhythm and no murmurs GI normal to inspection, nondistended, normoactive bowel sounds and non-tender Palpation: soft Back/Spine no CVA tenderness Back/Spine Narrative: Tender to palpation the lumbar paraspinal musculature. There is no midline tenderness. Extremity normal to inspection General Extremety ED: Negative for edema General Extremity: Negative for edema Neuro oriented x3 and CN's II-XII intact bilaterally Sensorium / Orientation: alert Motor Exam: strength 5/5 throughout Psych Psych Narrative: Admits to suicidal thoughts. Mood & Affect: depressed and tearful Skin no rashes or lesions noted and no wounds Skin Narrative: Contusion over bilateral knees. MDM MDM MDM Narrative Medical decision making narrative: Patient is medically cleared. Talk screen is negative. CMP shows a glucose of 151. CBC is significant only for a white count of 11.4. My interpretation of the plain films of the lumbar spine is degenerative changes but no acute fracture. COVID test is negative. Urinalysis shows no overt infection. Case management be consulted as his crisis. Patient would benefit from inpatient evaluation. Lab Data Attestation: I reviewed the patient's lab results. Labs: Laboratory Results - last 24 hr 01/17/22 01/17/22 01/17/22 21:19 21:19 22:10 WBC 11.4 H RBC 4.70 Hgb 13.8 Hct 42.6 MCV 90.6 MCH 29.4 MCHC 32.4 RDW Std Deviation 40.6 RDW Coeff of Meek 12.4 Plt Count 369 MPV 9.2 Immature Gran % (Auto) 0.300 Neut % (Auto) 69.2 Lymph % (Auto) 19.3 [place] % (Auto) 8.1 Eos % (Auto) 2.6 Baso % (Auto) 0.5 Absolute Neuts (auto) 7.9 H Absolute Lymphs (auto) 2.20 Nucleated RBC % 0 Sodium Potassium Chloride Carbon Dioxide Anion Gap BUN Creatinine Estim Creat Clear Calc Est GFR (MDRD) Af Amer Est GFR (MDRD) Non-Af BUN/Creatinine Ratio Glucose Calcium Total Bilirubin AST ALT Alkaline Phosphatase Total Protein Albumin Globulin Albumin/Globulin Ratio TSH Urine Color Yellow Urine Clarity Clear Urine pH 7.0 Ur Specific [place] 1.010 Urine Protein Negative Urine Glucose (UA) Normal Urine Ketones Negative Urine Occult Blood Negative Urine Nitrite Negative Urine Bilirubin Negative Urine Urobilinogen Normal Ur Leukocyte Esterase Negative Urine RBC 0 SEEN Urine WBC 0 SEEN Ur Squamous Epith Cells 0-5 SEEN Calcium Oxalate Crystal 2+ Urine Bacteria 1+ Urine Mucus 0 SEEN Urine Opiates Screen NEGATIVE Urine Methadone Screen NEGATIVE Ur Barbiturates Screen NEGATIVE Ur Phencyclidine Scrn NEGATIVE Ur Amphetamines Screen NEGATIVE MDMA (Ecstasy) Screen NEGATIVE U Benzodiazepines Scrn NEGATIVE Urine Cocaine Screen NEGATIVE U Cannabinoids Screen NEGATIVE Ur Drug Screen Comment Ethyl Alcohol 01/17/22 01/17/22 22:10 22:10 WBC RBC Hgb Hct MCV MCH MCHC RDW Std Deviation RDW Coeff of Meek Plt Count MPV Immature Gran % (Auto) Neut % (Auto) Lymph % (Auto) [place] % (Auto) Eos % (Auto) Baso % (Auto) Absolute Neuts (auto) Absolute Lymphs (auto) Nucleated RBC % Sodium 138 Potassium 3.6 Chloride 105 Carbon Dioxide 27.0 Anion Gap 6 BUN 11 Creatinine 0.93 Estim Creat Clear Calc 57.89 Est GFR (MDRD) Af Amer 79 Est GFR (MDRD) Non-Af 65 BUN/Creatinine Ratio 11.8 Glucose 151 H Calcium 9.3 Total Bilirubin 0.40 AST 12 L ALT 21 Alkaline Phosphatase 56 Total Protein 7.5 Albumin 3.8 Globulin 3.7 Albumin/Globulin Ratio 1.0 TSH 1.83 Urine Color Urine Clarity Urine pH Ur Specific [place] Urine Protein Urine Glucose (UA) Urine Ketones Urine Occult Blood Urine Nitrite Urine Bilirubin Urine Urobilinogen Ur Leukocyte Esterase Urine RBC Urine WBC Ur Squamous Epith Cells Calcium Oxalate Crystal Urine Bacteria Urine Mucus Urine Opiates Screen Urine Methadone Screen Ur Barbiturates Screen Ur Phencyclidine Scrn Ur Amphetamines Screen MDMA (Ecstasy) Screen U Benzodiazepines Scrn Urine Cocaine Screen U Cannabinoids Screen Ur Drug Screen Comment Ethyl Alcohol < 3.0 EKG Initial EKG: Attestation: I personally reviewed and interpreted this EKG as follows: Comments: Normal sinus rhythm with a ventricular rate of 82 bpm. Discharge Plan Triage Chief Complaint: Mental Health Other Complaint: Back Depression Suicidal ED Provider: Huy Marcus Dx/Rx/DC Orders Clinical Impression: DM2 (diabetes mellitus, type 2), Essential (primary) hypertension, Depression, Obesity, Suicidal thoughts, Acute lumbar myofascial strain Prescriptions: No Action lisinopril 5 MG tablet 2.5 mg PO QHS Label Comments: acetaminophen 500 MG tablet 1,000 mg PO Q8 meloxicam 7.5 MG tablet 15 mg PO DAILY Rx Instructions: Take for 4 weeks postoperatively calcium carbonate-vitamin D3 [Oyster Shell Calcium-Vit D3] 1 TABLET tablet 1 tab PO BIDCM aspirin 81 MG tablet 81 mg PO BID Qty: 38 0RF Rx Instructions: Take 4 weeks postoperatively for DVT prophylaxis famotidine 20 MG tablet 20 mg PO BID Qty: 60 0RF glimepiride 2 mg tablet 1 tab PO DAILY Label Comments: Take 1 tablet by mouth once daily. meclizine 25 mg Tablet 25 mg PO TID PRN (Reason: Dizziness) Primary Care Provider: Abhijeet Rowe Referrals: Abhijeet Rowe MD [Primary Care Provider] - Disposition Disposition: Psychiatric Hospital or Unit
--- NOTE | 2022-01-17 22:34 | CM.ED ---
COLLIN met with patient. SW asked if she had thoughts about assisted living. Patient said that she has thought about it but is trying to get on disability. Collin asked patient's intent to harm herself and patient said I don't want to kill myself because I know I am wonderfully made by God but I want to go somewhere where there is no pain and I am so afraid of falling. Patient did not quantify her intent. Amanda MADDOX
[2022-01-17 22:39] LABS: Alcohol, Blood (Medical)-Serum < 3.0 mg/dL
[2022-01-17 22:43] LABS: Bacteria 1+ /hpf (None Seen); Calcium Oxalate Crystals Ur 2+ /hpf (<or=2+); Squamous Epithelial Cells - UA 0-5 SEEN /hpf (5-10)
--- NOTE | 2022-01-17 22:45 | RAD_ITS ---
STUDY: X-RAY - LUMBAR SPINE REASON FOR EXAM: Female, 61 years old. Injury TECHNIQUE: 3 view(s) of the lumbar spine were obtained. COMPARISON: 08/25/2021 CT abdomen/pelvis FINDINGS: Normal lumbar lordosis. There is no substantial scoliosis. Grade 1 L5-S1 anterolisthesis. There is multilevel endplate spondylosis of the lumbar vertebrae. There is multi-level degenerative disc disease with multi-level disc space narrowing. There is no demonstrated fracture. Pelvic phleboliths. RAD/Lumbar Spine 2 or 3 Views IMPRESSION: Diffuse degenerative change without acute abnormal finding. Electronically Signed: Ryan Helms MD at 23:20 EDT ,
[2022-01-17 22:46] LABS: AST(SGOT) 12 U/L (15-37); Alanine Aminotransfer ALT/SGPT 21 U/L (13-56); Albumin, Serum 3.8 g/dL (3.2-5.0); Alkaline Phosphatase 56 U/L (45-117); Anion Gap 6 (5-15); BUN 11 mg/dL (7-18); BUN/Creat Ratio 11.8 RATIO (10-20); Calcium,Total 9.3 mg/dL (8.5-10.1); Chloride 105 mmol/L (98-107); Creatinine, Serum 0.93 mg/dL (0.55-1.02); EST Glomerular Filtration Rate 65 mL/min (>60); Est Glom Filt Rate - Afr Amer 79 mL/min (>60); Estimated Creatinine Clearance 57.89 ml/min; Globulin 3.7 g/dL (2.2-4.2); Glucose 151 mg/dL (74-106); Potassium 3.6 mmol/L (3.5-5.1); Protein, Total 7.5 g/dL (6.4-8.2); Sodium Level 138 mmol/L (136-145); Thyroid Stim Hormone (TSH) 1.83 uIU/mL (0.358-3.74)
[2022-01-17 23:10] VITALS: RESP 15
[2022-01-17] MEDS: Acetaminophen 500 MG Tablet 1000 MG PO (23:50)
[2022-01-18] VITALS (9 sets, daily range): BP systolic 143–159; BP diastolic 60–88; PULSE 70–104; RESP 14–18; TEMP 36.1–36.8; O2SAT 95–99
[2022-01-18] MEDS: Calcium Carb/Vitamin D 1 TABLET Tablet PO ×3 (02:23→18:20)
[2022-01-18] MEDS: Glimepiride 1 MG Tablet PO ×3 (02:24→21:54)
[2022-01-18] MEDS: Meloxicam 15 MG Tablet PO ×2 (02:24→21:54)
[2022-01-18] MEDS: Famotidine 20 MG Tablet PO ×3 (02:25→21:54)
[2022-01-18] MEDS: Acetaminophen 500 MG Tablet 1000 MG PO ×3 (05:21→21:53)
[2022-01-18] MEDS: Aspirin E.C. 81 MG Tablet PO (09:31)
--- NOTE | 2022-01-18 12:14 | NURSING ---
THE [facility] CALLED AND [facility] IS FULL. THEY CALLED [facility] AND THEY HAVE BEDS. THEY ARE JUST WAITING TO HEAR BACK FROM THEM
--- NOTE | 2022-01-18 13:23 | NURSING ---
SPOKE WITH WILLIAN FROM [facility], PT HAS BEEN DECLINED AT [facility] DUE TO NO BEDS.
--- NOTE | 2022-01-18 13:29 | NURSING ---
SPOKE WITH WILLIAN FROM [facility], [facility] IS WORKING ON A SINGLE CASE AGREEMENT TO SEND TO [facility].
[2022-01-18 13:43] LABS: Internal QC Validated? YES +Cl - CLEAR BKGD; Pregnancy, Urine Negative Negative
--- NOTE | 2022-01-18 16:42 | NURSING ---
PRINCESS FROM [facility] CALLED AND THEY ARE REFERRING PATIENT TO [facility]. PATIENT WAS DECLINED AT [facility]
[2022-01-18] MEDS: Lisinopril 2.5 MG Tablet PO (21:54)
--- NOTE | 2022-01-18 22:18 | ED.RN ---
Edmund with [facility] calls and reports an additional 90 minutes through 2 hours for ETA.
== END 2022-01-19 01:25 ==
PROVIDERS: Emergency Medicine; Emergency Provider Emergency Medicine; PCP Family Medicine; Visit Provider Emergency Medicine
DX: F32.A Depression, unspecified (principal); E11.40 Type 2 diabetes mellitus with diabetic neuropathy, unspecified; F41.9 Anxiety disorder, unspecified; S39.012A Strain of muscle, fascia and tendon of lower back, initial encounter; S80.01XA Contusion of right knee, initial encounter; S80.02XA Contusion of left knee, initial encounter; G89.29 Other chronic pain; Z20.822 Contact with and (suspected) exposure to COVID-19; R45.851 Suicidal ideations; I10 Essential (primary) hypertension; E66.9 Obesity, unspecified; Z79.82 Long term (current) use of aspirin; Z79.84 Long term (current) use of oral hypoglycemic drugs; Z79.1 Long term (current) use of non-steroidal anti-inflammatories (NSAID); Z79.899 Other long term (current) drug therapy; W19.XXXA Unspecified fall, initial encounter
CPT/HCPCS: 72100; 80053; 80307; 81001; 81025; 82077; 84443; 85025; 87811; 93005; 99285

== ENCOUNTER 2022-01-28 12:46 | Emergency (ER) | payer MEDICAID, SELFPAY ==
[2022-01-28 12:47] VITALS: BP 146/88; PULSE 76; RESP 16; TEMP 36.4; O2SAT 100; BMI 39.9
--- NOTE | 2022-01-28 12:58 | RAD_ITS ---
EXAM: XR ABDOMEN, 1 VIEW CLINICAL INDICATION: constipation TECHNIQUE: Frontal supine view of the abdomen/pelvis. This report was created using [employer] report generation technology. COMPARISON: None. FINDINGS: LOWER THORAX: No acute pathology. GASTROINTESTINAL TRACT: Normal bowel gas pattern. ORGANS: No organomegaly. BONES/JOINTS: No acute abnormality. SOFT TISSUES: No pathological calcification. RAD/Abdomen Single View IMPRESSION: Non-obstructive bowel gas pattern. Electronically Signed: Codey Hammer MD at 13:52 EDT ,
--- NOTE | 2022-01-28 13:03 | EDS_ITS ---
HPI History of Present Illness Chief Complaint: Constipation Narrative Narrative: Patient presents with constipation for about a week. It started when she had some loose stools and took some Imodium, she has not been able to have a bowel movement since then. She has no abdominal pain no fever or chills. She has no urinary symptoms. [facility] Medical History Arthritis Clavicle deformity, congenital Diabetes type 2, controlled GERD (gastroesophageal reflux disease) Hypertension Neuropathy Obesity Plantar wart Syncopal vertigo Tinea pedis UTI (urinary tract infection) Home Medications lisinopril 5 mg tablet 2.5 mg PO QHS BLOOD PRESSURE 05/09/15 [History Last Taken Unknown] acetaminophen 500 mg tablet 1,000 mg PO Q8 INFLAMMATION 04/04/18 [History Last Taken Unknown] calcium carbonate 500 mg-vitamin D3 5 mcg (200 unit) tablet (Oyster Shell Calcium-Vitamin D3) 1 tab PO BIDCM SUPPLEMENT 04/04/18 [History Last Taken Unknown] meloxicam 7.5 mg tablet 15 mg PO DAILY INFLAMMATION/PAIN 04/04/18 [History Last Taken Unknown] aspirin 81 mg tablet,delayed release 81 mg PO BID HEART HEALTH #38 tabs 04/11/18 [Rx Last Taken Unknown] famotidine 20 mg tablet 20 mg PO BID REFLUX #60 tabs 04/11/18 [Rx Last Taken Unknown] glimepiride 2 mg tablet 1 tab PO DAILY 01/17/22 [History Last Taken Unknown] meclizine 25 mg tablet 25 mg PO TID PRN Dizziness 01/17/22 [History Last Taken Unknown] polyethylene glycol 3350 17 gram/dose oral powder (Miralax) 17 g PO TID #238 grams 01/28/22 [Rx Last Taken Unknown] Allergy/AdvReac Type Severity Reaction Status Date / Time Penicillins Allergy Hives Verified 01/28/22 12:50 metformin AdvReac Diarrhea Verified 01/28/22 12:50 Social History Smoking Status: Never smoker ROS ROS ED ROS Narrative Past medical history: Reviewed Medications: Reviewed Social history: Noncontributory Review of systems: All systems negative except as indicated General: No fever Eyes: No visual changes ENT: No upper airway congestion, normal voice Neck: No neck pain Cardiovascular: No chest pain Respiratory: No shortness of breath or cough Gastrointestinal: No abdominal pain, nausea or vomiting. Constipation as in HPI Genitourinary: No dysuria Musculoskeletal: Denies myalgias no difficulty with ambulation Skin: No rash Neurological: No memory loss, confusion or any focal weakness Psych: No recent behavioral changes Hematologic: No easy bleeding or easy bruising EXAM Physical Exam Narrative Exam Narrative: Physical exam General: Patient is relatively comfortable in the bed. Head: Normocephalic, Atraumatic Eyes: Conjunctiva not pale ENT: Moist mucous membranes Neck: Supple, Nontender, No lymphadenopathy Cardiovascular: Regular rate, Regular rhythm Respiratory: No distress, CTA bilaterally Abdomen: Soft, Nontender, Nondistended. She has an umbilical hernia it is reduced Rectal: Normal rectal exam I could not appreciate any kind of stool impaction on digital exam Back: Nontender, Normal Inspection. Negative for: CVA tenderness Extremities: Nontender, No edema Skin: Normal color, No rash Neurological: Alert, Normal Strength, Normal Sensation Psychological: Normal affect Const Vital Signs: 01/28/22 12:47 Temperature 97.5 F L Temperature Source Temporal Pulse Rate 76 Respiratory Rate 16 Blood Pressure 146/88 H Blood Pressure Mean 107 Pulse Ox 100 Oxygen Delivery Method Room Air MDM MDM Radiography Diagnostic Testing: Clinical Impression(s) from Imaging Studies KUB X-Ray 01/28/22 12:58 IMPRESSION: Non-obstructive bowel gas pattern. Electronically Signed: Codey Hammer MD at 13:52 EDT Reading Location ID and State: [facility] / [place] Tel , Service support , X-ray read by me does show some constipation it is mild to moderate. I will treat her as such otherwise she has an abdominal exam that is benign without any pain. Should be discharged in stable condition Discharge Plan Triage Chief Complaint: Constipation ED Provider: Ryan Egan Dx/Rx/DC Orders Clinical Impression: Constipation, Hernia, umbilical Instructions: ED Constipation (Adult) Prescriptions: New polyethylene glycol 3350 [Miralax] 17 gram/dose powder 17 g PO TID Qty: 238 0RF No Action lisinopril 5 MG tablet 2.5 mg PO QHS Label Comments: acetaminophen 500 MG tablet 1,000 mg PO Q8 meloxicam 7.5 MG tablet 15 mg PO DAILY Rx Instructions: Take for 4 weeks postoperatively calcium carbonate-vitamin D3 [Oyster Shell Calcium-Vit D3] 1 TABLET tablet 1 tab PO BIDCM aspirin 81 MG tablet 81 mg PO BID Qty: 38 0RF Rx Instructions: Take 4 weeks postoperatively for DVT prophylaxis famotidine 20 MG tablet 20 mg PO BID Qty: 60 0RF glimepiride 2 mg tablet 1 tab PO DAILY Label Comments: Take 1 tablet by mouth once daily. meclizine 25 mg Tablet 25 mg PO TID PRN (Reason: Dizziness) Primary Care Provider: Abhijeet Rowe Referrals: Abhijeet Rowe MD [Primary Care Provider] - 3-5 Days Disposition Disposition: Home, Self Care
== END 2022-01-28 14:30 | disposition home or self-care (01) ==
PROVIDERS: Emergency Provider Emergency Medicine; PCP Family Medicine; Visit Provider Emergency Medicine
DX: K59.00 Constipation, unspecified (principal); E11.40 Type 2 diabetes mellitus with diabetic neuropathy, unspecified; K42.9 Umbilical hernia without obstruction or gangrene; I10 Essential (primary) hypertension; K21.9 Gastro-esophageal reflux disease without esophagitis; E66.9 Obesity, unspecified; Z79.82 Long term (current) use of aspirin; Z79.84 Long term (current) use of oral hypoglycemic drugs; Z79.1 Long term (current) use of non-steroidal anti-inflammatories (NSAID); Z79.899 Other long term (current) drug therapy
CPT/HCPCS: 74018; 99284

== ENCOUNTER 2023-03-12 06:22 | Emergency (ER) | payer MEDICAID, SELFPAY ==
[2023-03-12 06:23] VITALS: BP 170/81; PULSE 93; RESP 16; TEMP 36.6; O2SAT 96; BMI 46.8
--- NOTE | 2023-03-12 06:34 | CT_ITS ---
INDICATION: wound EXAMINATION: CT Abdomen And Pelvis W/O Contrast Injection TECHNIQUE: Helically acquired images were obtained of the abdomen and pelvis with sagittal and coronal reconstructed images. Individualized dose optimization techniques were used for this CT. IV contrast dosage and agent: None. Oral contrast: None. COMPARISON: 08/25/2021 CT. FINDINGS: VESSELS: No abdominal aortic aneurysm. LIVER: No intrahepatic or extrahepatic biliary duct dilation. Stable subcentimeter low-density lesion in the anterior right lobe representing a hepatic cyst. GALLBLADDER: No calcified stones. No evidence of cholecystitis. PANCREAS: No focal solid or cystic mass. No evidence of pancreatitis. SPLEEN: Normal. ADRENAL GLANDS: Stable 1.5 cm left adrenal gland nodule with attenuation values consistent with a benign lipid rich adrenal adenoma and no follow-up recommended. KIDNEYS AND URETERS: No urinary tract stone. No hydronephrosis or hydroureter. No significant asymmetric perinephric stranding. URINARY BLADDER: Unremarkable. BOWEL: Diverticulosis with no evidence of diverticulitis. Appendix appears normal. No evidence of bowel obstruction. REPRODUCTIVE ORGANS: Unremarkable. PERITONEUM: No intraabdominal free fluid or free air. LYMPH NODES: No pathologically enlarged mesenteric or retroperitoneal lymph nodes. ABDOMINAL WALL: No abdominal or pelvic wall hernia. Large fat-containing umbilical hernia with no acute associated findings. BONES: No acute abnormality. LOWER CHEST: Stable 5 mm right middle lobe pulmonary nodule. Given its stability, no follow-up is recommended. CT/Abdomen/Pelvis without Cont IMPRESSION: No acute abnormality. Electronically Signed: Salinas Hale DO at 7:10 EDT ,
--- NOTE | 2023-03-12 06:34 | EDS_ITS ---
HPI History of Present Illness Chief Complaint: Wound Detail of Chief Complaint: Bleeding from bellybutton Informant: patient Narrative Narrative: Patient presents secondary to bleeding from her bellybutton. She has a history of an umbilical hernia. She states in the past she would have some mild bleeding from the area that would scab over. Last night and again this morning she bled rather heavily from the area. No fever or chills. She denies any other fluid drainage, just noticed the blood. PFSH PFSH Medical History Arthritis Clavicle deformity, congenital Diabetes type 2, controlled GERD (gastroesophageal reflux disease) Hypertension Neuropathy Obesity Plantar wart Syncopal vertigo Tinea pedis UTI (urinary tract infection) Home Medications lisinopril 5 mg tablet 5 mg PO QHS BLOOD PRESSURE 05/09/15 [History Last Taken Unknown] acetaminophen 500 mg tablet 1,000 mg PO Q8 INFLAMMATION 04/04/18 [History Last Taken Unknown] calcium carbonate 500 mg-vitamin D3 5 mcg (200 unit) tablet (Oyster Shell Calcium-Vitamin D3) 1 tab PO BIDCM SUPPLEMENT 04/04/18 [History Last Taken Unknown] aspirin 81 mg tablet,delayed release 81 mg PO BID HEART HEALTH #38 tabs 04/11/18 [Rx Last Taken Unknown] famotidine 20 mg tablet 20 mg PO BID REFLUX #60 tabs 04/11/18 [Rx Last Taken Unknown] glimepiride 2 mg tablet 4 mg PO DAILY 01/17/22 [History Last Taken Unknown] duloxetine 30 mg capsule,delayed release 60 mg PO DAILY 03/12/23 [History Last Taken Unknown] lorazepam 0.5 mg tablet (Ativan) 0.5 mg PO QHS PRN anxiety 03/12/23 [History Last Taken Unknown] Allergy/AdvReac Type Severity Reaction Status Date / Time Penicillins Allergy Hives Verified 03/12/23 06:30 metformin AdvReac Diarrhea Verified 03/12/23 06:30 Social History Smoking Status: Never smoker ROS ROS ED Constitutional Constitutional ED: Denies chills or fever(s) ENT ENT ED: Denies rhinorrhea or sore throat Cardiovascular Cardiovascular: Denies chest pain Respiratory/Chest Respiratory/Chest: Denies cough or dyspnea Gastrointestinal Gastrointestinal: Reports abdominal pain; Denies diarrhea, nausea or vomiting Musculoskeletal Musculoskeletal: Denies back pain or extremity pain Integumentary Reports other Details: Umbilical wound ; Denies Abrasions or rash Neurologic Neurologic: Denies headache(s) or weakness Psychiatric Psychiatric: Denies anxiety or depression Allergic/Immunologic Allergic/Immunologic ED: Denies lip swelling or urticaria EXAM Physical Exam Const Vital Signs: 03/12/23 06:23 Temperature 97.9 F Temperature Source Temporal Pulse Rate 93 Respiratory Rate 16 Blood Pressure 170/81 H Blood Pressure Mean 110 Pulse Ox 96 Oxygen Delivery Method Room Air Positive well nourished and well developed General Appearance ED: well developed HEENT Reports moist mucous membranes Eyes EOMs intact bilaterally Chest Wall inspection of chest normal and palpation of chest normal Resp normal respiratory effort and clear to auscultation bilaterally Cardio regular rate and regular rhythm GI GI Narrative: Umbilical hernia is present. Because of this the skin over the hernia site as well as along the border of her umbilicus are rubbing together causing a friction wound. It appears this is the area of bleeding. Extremity normal to inspection Psych mental status grossly normal MDM MDM MDM Narrative Medical decision making narrative: To ensure no evidence of a deeper abscess, CT scan of the abdomen pelvis is obtained. Radiography Diagnostic Testing: Clinical Impression(s) from Imaging Studies Abdomen/Pelvis CT 03/12/23 06:34 IMPRESSION: No acute abnormality. Electronically Signed: Salinas Hale DO at 7:10 EDT Reading Location ID and State: [facility] / [place] Tel , Service support , Treatment and Re-Evaluation :: CT scan of the abdomen pelvis reveals no acute abnormalities. On my interpretation there is no evidence of fluid collection at the umbilicus. She does have an umbilical hernia containing fat but no bowel loops. Wound is cleansed. Bacitracin ointment is placed on cotton tip swabs and covers the area of irritation. Patient was encouraged to do this a couple times a day. She will be given referral both to the wound care center as well as to surgery. She has seen Dr. Whitehead in the past. Return instructions given. Discharge Plan Triage Chief Complaint: Wound ED Provider: Chelsey Holliday Dx/Rx/DC Orders Clinical Impression: Skin ulcer of abdomen Instructions: ED Wound Care Prescriptions: No Action lisinopril 5 MG tablet 5 mg PO QHS Patient Comments: acetaminophen 500 MG tablet 1,000 mg PO Q8 calcium carbonate-vitamin D3 [Oyster Shell Calcium-Vit D3] 1 TABLET tablet 1 tab PO BIDCM aspirin 81 MG tablet 81 mg PO BID Qty: 38 0RF Rx Instructions: Take 4 weeks postoperatively for DVT prophylaxis famotidine 20 MG tablet 20 mg PO BID Qty: 60 0RF glimepiride 2 mg tablet 4 mg PO DAILY Patient Comments: Take 1 tablet by mouth once daily. duloxetine 30 mg capsule,delayed release(DR/EC) 60 mg PO DAILY Patient Comments: Take 1 Capsule By Oral Route 1 daily lorazepam [Ativan] 0.5 mg tablet 0.5 mg PO QHS PRN (Reason: anxiety) Primary Care Provider: Abhijeet Rowe Referrals: Kristal Whitehead MD [Med Staff - Active Staff] - As Needed Abhijeet Rowe MD [Primary Care Provider] - Wound,Center [Non-Staff] - As Needed Disposition Disposition: Home, Self Care
== END 2023-03-12 07:46 | disposition home or self-care (01) ==
PROVIDERS: Emergency Provider Emergency Medicine; PCP Family Medicine; Visit Provider Emergency Medicine
DX: L98.499 Non-pressure chronic ulcer of skin of other sites with unspecified severity (principal); E11.40 Type 2 diabetes mellitus with diabetic neuropathy, unspecified; K42.9 Umbilical hernia without obstruction or gangrene; I10 Essential (primary) hypertension; K21.9 Gastro-esophageal reflux disease without esophagitis; E66.9 Obesity, unspecified; Z79.82 Long term (current) use of aspirin; Z79.84 Long term (current) use of oral hypoglycemic drugs; Z79.899 Other long term (current) drug therapy
CPT/HCPCS: 74176; 99282